=== PATIENT | female | born 1970 | race Caucasian/White ===

== ENCOUNTER → 2018-12-08 | Outpatient (CLI) | payer BC, SELFPAY ==
--- NOTE | 2018-12-08 15:28 | BI_ITS ---
MAMMOGRAPHY - BILATERAL SCREENING REASON FOR EXAM: Female, 48 years old. Routine annual screening examination. PERTINENT HISTORY: Aunt with breast cancer. Remote left excisional breast biopsy. TECHNIQUE: Digital bilateral breast eldon (3D mammographic acquisition) in the CC and MLO projections. 2-D mediolateral oblique (MLO) and craniocaudad (CC) views of both breasts were obtained. CAD: Full Field Digital Mammography with Computer Added Detection was performed. COMPARISON: Comparison is made with prior study dated November 30, 2016 and October 07, 2013 FINDINGS: Breast Composition: The breasts are almost entirely fatty. There are no dominant masses or suspicious calcifications. No other significant abnormalities are identified. There has been no significant change since the prior study. BI/SCREEN MAMM (CAD) W/ELDON BILAT IMPRESSION: Stable bilateral screening mammogram. Yearly follow-up mammogram recommended. (A) ASSESSMENT CATEGORY: BIRADS Category 1: Negative. A letter regarding these results will be sent to the patient by the facility within 30 days. Approximately 10% of breast cancers are not detected by mammography. A normal mammogram should not delay biopsy of a clinically suspicious abnormality. [id number] Electronically Signed: Cortez Garcia, at 7:59 EDT , Service support ,
== END | disposition home or self-care (01) ==
PROVIDERS: Family Provider Family Medicine; PCP Family Medicine
DX: Z12.31 Encounter for screening mammogram for malignant neoplasm of breast (principal)
CPT/HCPCS: 77063; 77067

== ENCOUNTER → 2019-02-13 17:28 | Outpatient (CLI) | payer BC, SELFPAY ==
[2014-05-30 00:42] VITALS: BMI 33.9
[2019-02-13 17:42] LABS: Absolute Lymphocyte Count 2.59 X10^3/uL (0.83-4.51); Absolute Neutrophil Count 5.5 X10^3/uL (2.0-7.7); Basophil# 0.06 X10^3/uL; Basophil% 0.7 % (0-1); Eosinophils% 1.1 % (0-5); Hematocrit 43.1 % (37-47); Hemoglobin 14.1 g/dL (12.0-15.0); Lymphocyte # 2.59 X10^3/ul (4.0); Lymphocyte % 29.5 % (19-41); Mean Corp Hgb Conc 32.7 g/dL (32-36); Mean Corpuscular Hgb 27.6 pg (27.0-32.0); Mean Corpuscular Volume 84.3 fL (81-99); Mean Platelet Vol. 11.4 fl (6.2-12.0); Monocyte# 0.53 X10^3/uL; NRBC Flagged by Analyzer 0 % (0-5); Neutrophil # 5.45 X10^3/uL (2.7-7.7); Neutrophil % 62.2 % (47-70); Platelet Count 372 K/mm3 (150-450); RBC Distribution Width CV 13.2 % (11.6-14.6); RBC Distribution Width SD 40.3 fl (35.1-43.9); Red Blood Count 5.11 M/mm3 (4.2-5.4); White Blood Count 8.8 K/mm3 (4.4-11.0)
[2019-02-13 17:49] LABS: Hemoglobin A1c 6.3 % (4.2-6.3)
[2019-02-13 18:15] LABS: Anion Gap 8 (5-15); BUN 11 mg/dL (7-18); BUN/Creat Ratio 14.2 RATIO (10-20); Calcium,Total 8.7 mg/dL (8.5-10.1); Chloride 105 mmol/L (98-107); Cholesterol 147 mg/dL (200); Creatinine, Serum 0.78 mg/dL (0.55-1.02); EST Glomerular Filtration Rate 84 mL/min (>60); Est Glom Filt Rate - Afr Amer 102 mL/min (>60); Glucose 105 mg/dL (74-106); High Density Lipoprotein 46 mg/dL; Potassium 3.9 mmol/L (3.5-5.1); Sodium Level 137 mmol/L (136-145); Triglycerides 168 mg/dL; Very Low Density Lipoprotein 34 mg/dL (5-40)
== END ==
PROVIDERS: Family Provider Family Medicine; PCP Family Medicine; Referring Provider Family Medicine; Visit Provider Family Medicine
DX: R03.0 Elevated blood-pressure reading, without diagnosis of hypertension (principal)
CPT/HCPCS: 36415; 80048; 80061; 83036; 85025

== ENCOUNTER 2019-02-23 13:09 | Emergency (ER) | payer BC, SELFPAY ==
[2019-02-23 13:09] VITALS: BP 157/92; PULSE 99; RESP 16; TEMP 36.7; O2SAT 98; BMI 37.5
[2019-02-23 13:53] LABS: Color, Urine Yellow (Yellow); Glucose, Dipstick Normal (Normal); Ketone-Dipstick 50 mg/dl (Negative); Leukocyte Esterase-Dipstick 100 /ul (Negative); Nitrite-Dipstick Negative (Negative); Occult Blood-Urine 250 /ul (Negative); Protein-Dipstick 15 mg/dl (Negative); Specific Gravity, Urine 1.015 (1.002-1.030); Urine Bilirubin Dipstick Negative (Negative); Urine Clarity Sl. Cloudy (Clear); Urine Urobilinogen Normal (Normal)
[2019-02-23 14:05] LABS: Bacteria 1+ /hpf (None Seen); Mucous, Urine 1+ /hpf (<or=2+); Red Blood Cells-Urine 5-10 SEEN /hpf (0-5); Squamous Epithelial Cells - UA 0-5 SEEN /hpf (5-10); White Blood Cells 5-10 SEEN /hpf (0-5)
[2019-02-23 14:10] LABS: Absolute Lymphocyte Count 1.69 X10^3/uL (0.83-4.51); Absolute Neutrophil Count 6.1 X10^3/uL (2.0-7.7); Basophil# 0.07 X10^3/uL; Basophil% 0.8 % (0-1); Eosinophil# 0.07 X10^3/uL; Eosinophils% 0.8 % (0-5); Hemoglobin 13.6 g/dL (12.0-15.0); Lymphocyte # 1.69 X10^3/ul (4.0); Lymphocyte % 20.2 % (19-41); Mean Corp Hgb Conc 32.4 g/dL (32-36); Mean Corpuscular Hgb 27.3 pg (27.0-32.0); Mean Corpuscular Volume 84.3 fL (81-99); Mean Platelet Vol. 10.8 fl (6.2-12.0); Monocyte# 0.43 X10^3/uL; Monocyte% 5.1 % (0-10); NRBC Flagged by Analyzer 0 % (0-5); Neutrophil % 72.9 % (47-70); Platelet Count 330 K/mm3 (150-450); RBC Distribution Width CV 13.3 % (11.6-14.6); RBC Distribution Width SD 41.1 fl (35.1-43.9); Red Blood Count 4.98 M/mm3 (4.2-5.4); White Blood Count 8.4 K/mm3 (4.4-11.0)
--- NOTE | 2019-02-23 14:13 | CT_ITS ---
STUDY: CT ABDOMEN AND PELVIS WITHOUT CONTRAST REASON FOR EXAM: Female, 48 years old. Left lower quadrant pain. History of celiac disease. RADIATION DOSAGE (If Supplied By Facility): CTDIvol = ( 19.00 ) mGy, DLP = ( 968.14 ) mGycm TECHNIQUE: Transaxial images were obtained from the dome of the diaphragm to the symphysis pubis without oral contrast, and without intravenous contrast. Sagittal and coronal images were reconstructed. Individualized dose optimization techniques were used for this CT. COMPARISON: None. FINDINGS: The visualized lung bases are unremarkable. The visualized portions of the heart are within normal limits. There is decreased attenuation of the liver consistent with steatosis. Hepatomegaly. There are multiple gallstones. Normal spleen. Normal pancreas. Normal bilateral adrenal glands. There is a 3.6 mm nonobstructive calculus in the anterior mid pole calyx. Mild degree of left hydronephrosis due to a 4.6 mm calculus at the left ureteral pelvic junction. Moderate sized hiatal hernia. Normal small intestine. Normal colon. The appendix is visualized and appears normal. Normal abdominal aorta. Normal inferior vena cava. Normal retroperitoneum. Normal urinary bladder. Normal abdominal wall. Normal osseous structures. CT/Abdomen/Pelvis without Cont IMPRESSION: 4.6 mm calculus at the left ureteropelvic junction causing mild degree of left hydronephrosis. Hepatomegaly and fatty infiltration of the liver. Nonobstructive right renal calculus. Multiple gallstones. Moderate hiatal hernia. Electronically Signed: Cortez Garcia, at 15:34 EDT , Service support ,
--- NOTE | 2019-02-23 14:16 | ED.VIS.GEN ---
History of Present Illness Chief Complaint: Abd Pain Informant: Patient Onset: Today Context: Sudden Onset Timing: Continuous Current Severity: Mild Maximum Severity: Severe Narrative: The patient presents to the emergency department with sudden onset abdominal pain. The patient was in her normal state of health. She states that this morning, she had a sharp stabbing pain in her left lower quadrant. It radiated to her back. She was nauseated without vomiting. States it lasted about an hour to an hour and a half. It is since resolved. She is noticed that she is had some blood in her urine and difficulty urinating. She denies any fevers or chills. She denies any change in bowel habits. She is otherwise been in her normal state of health. Prior similar symptoms: No Recent Illness/Hospitalization: No Past Medical History - Allergies and Home Meds Allergies/Adverse Reactions: Allergies No Known Allergies Allergy (Verified 02/23/19 13:12) Primary Care Physician: Tank Tran MD [Primary Care Provider] - Prior records reviewed: Yes Past Medical History: - - Celiac disease Smoking Status: Never smoker Review of Systems General: Denies: Chills, Fever, Sweats Eyes: Denies: Visual changes - bilaterally, Diplopia ENT: Denies: Rhinorrhea, Sore throat Cardiovascular: Denies: Chest pain, Palpitations Respiratory: Denies: Dyspnea, Cough, Dyspnea on exertion Gastrointestinal: Reports: Abdominal pain, Nausea. Denies: Vomiting, Diarrhea, Melena, Hematochezia Genitourinary: Reports: Hematuria. Denies: Dysuria, Frequency Musculoskeletal: Reports: Back pain. Denies: Extremity Pain Skin: Denies: Rash, Wounds Neurological: Denies: Headache, Weakness, Numbness Physical Exam Vital Signs/Narrative: Vital Signs Temp Pulse Resp BP Pulse Ox 02/23/19 13:09 98.0 F 99 16 157/92 H 98 Inital Vital Signs reviewed: Yes General: Well nourished, Well developed, No Acute Distress Head: Normocephalic, Atraumatic Eyes: Perrl, EOMI ENT: Moist mucous membranes, No rhinorrhea Neck: Supple, Nontender Cardiovascular: Regular rate, Regular rhythm, No murmurs Respiratory: No distress, CTA bilaterally, Chest nontender Abdomen: Soft, Nontender, Nondistended, Normal bowel sounds Back: Nontender, Normal Inspection Extremities: Nontender, No edema Skin: Normal color, No rash Neurological: Alert, Oriented x3, Cranial nerves II-XII grossly intact, Normal Strength, Normal Sensation Psychological: Normal affect, Normal Mood Diagnostic/Tx/Re-eval Clinical Impression(s) from Imaging Studies Abdomen/Pelvis CT 02/23/19 14:13 IMPRESSION: 4.6 mm calculus at the left ureteropelvic junction causing mild degree of left hydronephrosis. Hepatomegaly and fatty infiltration of the liver. Nonobstructive right renal calculus. Multiple gallstones. Moderate hiatal hernia. Electronically Signed: Cortez Garcia, at 15:34 EDT , Service support , Abnormal Lab Results 02/23/19 02/23/19 02/23/19 13:40 14:03 14:03 WBC 8.4 RBC 4.98 Hgb 13.6 Hct 42.0 MCV 84.3 MCH 27.3 MCHC 32.4 RDW Std Deviation 41.1 RDW Coeff of Sourav 13.3 Plt Count 330 MPV 10.8 Immature Gran % (Auto) 0.200 Neut % (Auto) 72.9 H Lymph % (Auto) 20.2 [place] % (Auto) 5.1 Eos % (Auto) 0.8 Baso % (Auto) 0.8 Absolute Neuts (auto) 6.1 Absolute Lymphs (auto) 1.69 Nucleated RBC % 0 Sodium 136 Potassium 3.7 Chloride 105 Carbon Dioxide 23.0 Anion Gap 8 BUN 9 Creatinine 0.77 Estim Creat Clear Calc 86.89 Est GFR (MDRD) Af Amer 103 Est GFR (MDRD) Non-Af 85 BUN/Creatinine Ratio 11.7 Glucose 113 H Calcium 8.9 Serum , Qual Urine Color Yellow Urine Clarity Sl. Cloudy Urine pH 6.0 Ur Specific [place] 1.015 Urine Protein 15 H Urine Glucose (UA) Normal Urine Ketones 50 H Urine Occult Blood 250 H Urine Nitrite Negative Urine Bilirubin Negative Urine Urobilinogen Normal Ur Leukocyte Esterase 100 H Urine RBC 5-10 SEEN Urine WBC 5-10 SEEN Ur Squamous Epith Cells 0-5 SEEN Urine Bacteria 1+ Urine Mucus 1+ 02/23/19 14:03 WBC RBC Hgb Hct MCV MCH MCHC RDW Std Deviation RDW Coeff of Sourav Plt Count MPV Immature Gran % (Auto) Neut % (Auto) Lymph % (Auto) [place] % (Auto) Eos % (Auto) Baso % (Auto) Absolute Neuts (auto) Absolute Lymphs (auto) Nucleated RBC % Sodium Potassium Chloride Carbon Dioxide Anion Gap BUN Creatinine Estim Creat Clear Calc Est GFR (MDRD) Af Amer Est GFR (MDRD) Non-Af BUN/Creatinine Ratio Glucose Calcium Serum , Qual NEGATIVE Urine Color Urine Clarity Urine pH Ur Specific [place] Urine Protein Urine Glucose (UA) Urine Ketones Urine Occult Blood Urine Nitrite Urine Bilirubin Urine Urobilinogen Ur Leukocyte Esterase Urine RBC Urine WBC Ur Squamous Epith Cells Urine Bacteria Urine Mucus - Medical Decision Making The patient symptoms do seem consistent with kidney stone. She also has evidence of contact dermatitis of bilateral lower extremities which she had for 10 days. She will be treated with prednisone for this. IV was established. Patient was given fluids. She really had no pain. She then had recurrence of some mild pain was given Toradol and was resting comfortably. Her urine does not show evidence of infection. Her kidney function is normal. CT demonstrates a 4.6 mm stone that is proximal on the left with minimal hydronephrosis. The patient does have good pain control, I do feel that she is safe for outpatient follow-up. She will be given outpatient urology referral along with analgesics and antiemetics. She was counseled concerning symptoms and reasons to return. She will be discharged home. Impression 1. Left kidney stone with colic ED Disposition - Plan for ED Patient: Disposition: Home or Assisted Living Instructions: KIDNEY STONE w/ Colic Prescriptions: Prednisone [Deltasone] 40 mg PO DAILY #10 tab Prescription Printed Hydrocodone Bitart/Apap 5-325 [Cades 5MG-325MG] 1 tab PO Q6H PRN PRN 3 Days #10 tab PRN Reason: Pain Prescription Printed Ondansetron [Zofran Odt] 4 mg PO Q8H PRN PRN #10 tab PRN Reason: Nausea Prescription Printed Referrals: Tank Tran MD [Primary Care Provider] -
[2019-02-23 14:27] LABS: Anion Gap 8 (5-15); BUN 9 mg/dL (7-18); BUN/Creat Ratio 11.7 RATIO (10-20); Calcium,Total 8.9 mg/dL (8.5-10.1); Chloride 105 mmol/L (98-107); Creatinine, Serum 0.77 mg/dL (0.55-1.02); EST Glomerular Filtration Rate 85 mL/min (>60); Est Glom Filt Rate - Afr Amer 103 mL/min (>60); Estimated Creatinine Clearance 86.89 ml/min; Glucose 113 mg/dL (74-106); Potassium 3.7 mmol/L (3.5-5.1); Sodium Level 136 mmol/L (136-145)
[2019-02-23 14:30] LABS: Internal QC Validated? YES +Cl - CLEAR BKGD; Pregnancy, Serum, hCG Quali. NEGATIVE Negative
[2019-02-23] MEDS: Ketorolac 30 MG/ML Syringe IV (15:16)
[2019-02-23 16:20] VITALS: BP 141/95; PULSE 92; RESP 16; O2SAT 98
== END 2019-02-23 16:20 | disposition home or self-care (01) ==
LOC: ED 14:19
PROVIDERS: Emergency Provider Emergency Medicine; Family Provider Family Medicine; PCP Family Medicine
DX: N13.2 Hydronephrosis with renal and ureteral calculous obstruction (principal); L25.9 Unspecified contact dermatitis, unspecified cause; K76.0 Fatty (change of) liver, not elsewhere classified; K80.20 Calculus of gallbladder without cholecystitis without obstruction; K44.9 Diaphragmatic hernia without obstruction or gangrene
CPT/HCPCS: 74176; 80048; 81001; 84703; 85025; 96374; 99283

== ENCOUNTER → 2019-03-10 09:17 | Outpatient (CLI) | payer BC, SELFPAY ==
[2019-02-23 13:09] VITALS: BMI 37.5
--- NOTE | 2019-03-10 09:18 | US_ITS ---
STUDY: ABDOMINAL ULTRASOUND - RIGHT UPPER QUADRANT REASON FOR VISIT: Female, 48 years old . Cholelithiasis. TECHNIQUE: Ultrasound evaluation of the right upper quadrant was performed with real-time and static hardin-scale imaging. TECHNICAL QUALITY: Adequate. COMPARISON: Comparison is made with prior CT scan of the abdomen and pelvis dated February 23, 2019. FINDINGS: Liver: The liver is mildly enlarged and measures 18.4 cm. There is increased echogenicity consistent with fatty infiltration. The bile ducts are within normal limits. There is hepatic color flow. The direction of portal flow is hepatopetal. There is no demonstrated mass lesion. Gallbladder: Normal distended gallbladder. The gallbladder wall measures 2.2 mm. There is a negative sonographic Avina's sign. There is no pericholecystic fluid. There are multiple echogenic structures within the gallbladder, consistent with multiple gallstones. Common Bile Duct (C.B.D.): The common bile duct measures 3.0 mm. Pancreas: There is nonvisualization of the pancreas due to overlying bowel gas. Right Kidney: Normal size of the right kidney. The right kidney measures 10.7 cm x 6.7 cm x 4.2 cm. Normal renal cortex. The right cortex measures 1.3 cm. There is no demonstrated renal mass or cyst. There is no right hydronephrosis. US/Abdomen Limited IMPRESSION: Multiple gallstones. Mild hepatomegaly with diffuse fatty infiltration of the liver. Electronically Signed: Cortez Garcia, at 11:04 EST , Service support ,
== END ==
PROVIDERS: Family Provider Family Medicine; PCP Family Medicine; Referring Provider Family Medicine; Visit Provider Family Medicine
DX: K80.20 Calculus of gallbladder without cholecystitis without obstruction (principal)
CPT/HCPCS: 76705

== ENCOUNTER 2019-03-19 12:48 | Observation (INO) | payer BC, SELFPAY ==
[2019-03-19] VITALS (10 sets, daily range): BP systolic 135–176; BP diastolic 71–96; PULSE 65–103; RESP 14–27; TEMP 36.6–37.7; O2SAT 94–97; BMI 37.5; BMI 37.6; BMI 37.0
--- NOTE | 2019-03-19 13:23 | EKG12_ITS ---
Test Reason : CP Blood Pressure : / mmHG Vent. Rate : 095 BPM Atrial Rate : 095 BPM P-R Int : 146 ms QRS Dur : 080 ms QT Int : 352 ms P-R-T Axes : 002 -53 017 degrees QTc Int : 442 ms Normal sinus rhythm Low voltage QRS Left anterior fascicular block Inferior infarct , age undetermined Cannot rule out Anterior infarct , age undetermined Abnormal ECG Confirmed by GOLDIE GUPTA, ELIGIO ([id number]), editor trade journal PJ AREVALO ([id number]) on 03/23/2019 9:23:11 AM Referred By: Yuli Duke Confirmed By:VERO AMEZCUA MD
--- NOTE | 2019-03-19 13:26 | RAD_ITS ---
STUDY: X-RAY CHEST REASON FOR EXAM: Female, 48 years old. Chest pain. Left hand numbness. TECHNIQUE: Single AP portable view of the chest. COMPARISON: None. FINDINGS: EKG electrodes are seen. The lungs are clear and expanded. There is no demonstrated pleural abnormality. Normal size heart. Normal mediastinum and debbie. Normal visualized pulmonary arteries. Normal visualized aortic arch and descending thoracic aorta. Normal visualized thoracic spine. Normal visualized ribs, clavicles, and shoulders. Large hiatal hernia. RAD/Chest 1 View (Portable) IMPRESSION: Normal x-ray examination of the chest. Large hiatal hernia. Electronically Signed: Cortez Garcia, at 14:04 EST , Service support ,
[2019-03-19 13:48] LABS: Absolute Lymphocyte Count 2.36 X10^3/uL (0.83-4.51); Absolute Neutrophil Count 5.4 X10^3/uL (2.0-7.7); Basophil# 0.06 X10^3/uL; Basophil% 0.7 % (0-1); Eosinophils% 1.2 % (0-5); Hematocrit 40.9 % (37-47); Hemoglobin 13.6 g/dL (12.0-15.0); Lymphocyte # 2.36 X10^3/ul (4.0); Lymphocyte % 28.4 % (19-41); Mean Corp Hgb Conc 33.3 g/dL (32-36); Mean Corpuscular Hgb 27.6 pg (27.0-32.0); Mean Platelet Vol. 11.5 fl (6.2-12.0); Monocyte# 0.41 X10^3/uL; Monocyte% 4.9 % (0-10); NRBC Flagged by Analyzer 0 % (0-5); Neutrophil # 5.36 X10^3/uL (2.7-7.7); Neutrophil % 64.7 % (47-70); Platelet Count 349 K/mm3 (150-450); RBC Distribution Width CV 13.3 % (11.6-14.6); Red Blood Count 4.93 M/mm3 (4.2-5.4); White Blood Count 8.3 K/mm3 (4.4-11.0)
[2019-03-19 13:58] LABS: Anion Gap 9 (5-15); BUN 9 mg/dL (7-18); BUN/Creat Ratio 12.2 RATIO (10-20); Calcium,Total 8.8 mg/dL (8.5-10.1); Chloride 107 mmol/L (98-107); Creatinine, Serum 0.74 mg/dL (0.55-1.02); EST Glomerular Filtration Rate 90 mL/min (>60); Est Glom Filt Rate - Afr Amer 108 mL/min (>60); Estimated Creatinine Clearance 90.41 ml/min; Glucose 102 mg/dL (74-106); Potassium 3.7 mmol/L (3.5-5.1); Sodium Level 139 mmol/L (136-145)
[2019-03-19 14:06] LABS: Prothrombin Time (Protime)PT. 12.8 SECONDS (11.7-14.9)
--- NOTE | 2019-03-19 15:38 | ED.DCSUM_ITS ---
- ER Visit Summary Date of Service: 03/19/19 Chief Complaint: Chest pain History of Present Illness: The patient is a 48 F history of hypertension celiac disease and known gallstones. He also had a history of reflux. Patient was recently diagnosed with a left UPJ 4.6 mm stone. He is going to have surgical procedure done tomorrow to relieve her of the stone. He was seen today by the neurologist and symptoms primary care physician's office due to recurrent chest pain for the last 6 weeks. She states that she has left-sided chest pain. Associated with exertion and shortness of breath. She also states she is more tired. She is never had any cardiac disease. She is never had a cardiac catheterization and no recent stress test. Currently her chest pain is nearly resolved. Physical Examination: Middle-aged female no acute distress vital signs stable afebrile. Pulse ox 97% on room air no signs of hypoxia. HEENT exam unremarkable. Neck nontender. Lungs clear to auscultation bilaterally. Heart regular rate and rhythm no murmur. Chest were nontender. Abdomen soft nontender. No epigastric or right upper quadrant tenderness. No Avina sign. Patient is moving all 4 extremities. Neurovascular intact. Calves are nontender without edema or cords. She is equal symmetrical radial pulses. Neurologically she is awake and alert with no focal motor deficits. Test Results: CBC shows a white count 8 hemoglobin 13. Chemistries are normal w ith a normal creatinine and gap. Troponin normal. Chest x-ray shows a moderate to large hiatal hernia but otherwise no acute abnormality. Read both by myself and the radiologist. EKG shows a sinus rhythm rate of 95 with no acute signs of PR or ischemia. Emergency Department Course and Treatment: Patient has left-sided chest pain associated with some exertion. This may or may not be cardiac it could also be secondary to her hiatal hernia. Her primary care physician's office called in wanting her cleared from a cardiac standpoint. I also spoke to her urologist who has a pending procedure tomorrow to resolve the left UPJ ureteral stone. I will speak to the hospitalist about admitting her for further cardiac evaluation. Treatment Plan: Admission for serial cardiac enzymes and stress testing. If cleared from a cardiac standpoint than she has a 3:00 procedure for her left ureteral calculi scheduled for tomorrow Disposition: Admission Impression: Chest pain uncertain etiology History of known hiatal hernia Recently diagnosed left UPJ ureteral stone with pending surgical procedure tomorrow Known gallstone This note was generated with [employer] dictation software. It may contain incorrect words, spelling, and punctuation that were not noted in review of the chart prior to signing ED Disposition - Plan for ED Patient: Referrals: Tank Tran MD [Primary Care Provider] -
[2019-03-19] MEDS: Ibuprofen 400 MG Tablet 800 MG PO (17:20)
--- NOTE | 2019-03-19 18:46 | EKG12_ITS ---
Test Reason : AM EKG Blood Pressure : / mmHG Vent. Rate : 073 BPM Atrial Rate : 073 BPM P-R Int : 170 ms QRS Dur : 074 ms QT Int : 394 ms P-R-T Axes : 020 -26 020 degrees QTc Int : 434 ms Normal sinus rhythm Normal ECG When compared with ECG of 19-MAR-2019 19:16, MANUAL COMPARISON REQUIRED, DATA IS UNCONFIRMED Confirmed by SAMMY KATZ ([id number]), book or script editor BRUCE SAGASTUME ([id number]) on 03/27/2019 11:52:31 AM Referred By: Yuli Duke Confirmed By:SAMMY KATZ
--- NOTE | 2019-03-19 19:07 | PCM.HP.STD ---
History of Present Illness Date of Admission: 03/19/19 The patient is a 48 year old F who presented to the ED today after being seen by her urologist and PC. She had complained to both of them about CP that has been occurring on and off over the last 6 weeks. She states that it is L sided and she has radiation of burning into her L arm and some intermittent numbness to her hand. Her sx are not specifically related to exertion and she states that she gets sx at rest and with exertion. She states that she also having some nausea but this has been ongoing as she has a bad gallbladder that needs removed. She is to have a surgical procedure tomorrow for L UPJ kidney stone 2/2 persistent hydronephrosis. She is currently CP free but had arm sx while i was in the room that i was able to sheri with cervical spine extension. EKG was unremarkable. Labs were completely normal. Her BP was mildly elevated. Past Medical History Allergies gluten Allergy (Verified 03/19/19 15:54) Food Allergy Home Medications: Ambulatory Orders Medication Instructions Recorded Amlodipine [Norvasc] 5 mg PO DAILY 02/23/19 Ethinyl Estradiol/Drospirenone 1 ea PO DAILY 02/23/19 [Ocella 3 mg-0.03 mg Tablet] Ferrous Gluconate 324 mg PO DAILY 03/19/19 Hyoscyamine [Levsinex] 0.125 mg PO Q12H PRN PRN 03/19/19 Psyllium [Metamucil] 1 packet PO DAILY PRN PRN 03/19/19 Surgical History: noncontributory Psychiatric History: No pertinent psych hx Lives: Spouse/ Significant Other, With Family Smoking Status: Never smoker Tobacco Use: Secondhand Alcohol: None Drugs: None Review of Systems Constitutional: Reports: Fatigue. Denies: Anorexia, Chills, Fever, Night Sweats, Malaise, Weakness, Weight Change Eyes: Denies: Blurred vision, Cataracts, Conjunctivae Inflammation, Double vision, Drainage, Eyelid Inflammation, Pain, Redness, Vision Change HEENT: Denies: Difficulty Hearing, Difficulty Swallowing, Dysphasia, Ear Pain, Eye Pain, Hard of Hearing, Head Aches, Hearing Changes, Nasal bleeding, Nasal Congestion, Post Nasal Drip, Sinus Drainage, Sore Throat, Visual Changes Cardiovascular: Reports: Chest Pain. Denies: Claudication, Chest Pressure, Chest Tightness, Edema, Heaviness, Light Headedness, Orthopnea, Palpitations Respiratory: Reports: Shortness of Breath - with CP. Denies: Cough, Hemoptysis, Pleuritic Pain, Shortness of breath at rest, Shortness of breath upon exertion, Sputum production, Wheezing Gastrointestinal: Reports: Abdominal Pain, Nausea. Denies: Constipation, Diarrhea, Dyspepsia, Hematemesis, Hematochezia, Melena, Vomiting Genitourinary: Denies: Dysuria, Frequency, Hematuria, Hesitancy, Incontinence, Nocturia, Retention, Urgency Musculoskeletal: Reports: Arm Pain - L. Denies: Back Pain, Foot Pain, Hand Pain, Joint Pain, Joint stiffness, Joint swelling, Joint Tenderness, Leg Pain, Muscle pain, Neck Pain, Shoulder Pain Skin: Denies: Dryness, Jaundice, Lesions, Pruritis, Rash, Skin Changes, Wounds Neurological: Reports: Tingling - L arm/hand. Denies: Balance problems, Blurred vision, Double vision, Change in Speech, Slurred speech, Confusion, Difficulty swallowing, Focal weakness, Headaches, Incoordination, Numbness, Tremor, Seizures Psychiatric: Denies: Anxiety, Depression Endocrine: Denies: Change in Body Habitus, Heat/ Cold Intolerance, Polydipsia, Polyuria, Hx of Irradiation, Hx of Thyroiditis Hematologic/ Lymphatic: Denies: Adenopathy, Anemia, Easy Bruising, Easy Bleeding, Petechiae, Purpura, Hx of blood clot, Hx of blood transfusion VTE Information - Inpt Only VTE Present on Admission: No VTE Mechan Device Prophylaxis: None VTE Pharm Prophylaxis ordered?: No - Physical Exam Vitals/I&O's: Vital Signs Temp Pulse Resp BP Pulse Ox 98.9 F 90 16 155/96 H 95 03/19/19 18:34 03/19/19 18:34 03/19/19 18:34 03/19/19 18:34 03/19/19 18:34 Oxygen Delivery Method Room Air Weight: 107.501 kg Body Mass Index (BMI) 37.0 General: Alert, Oriented x3, Cooperative, Well nourished, - - very talkative and appears comfortable HEENT: Atraumatic, PERRLA, EOMI, Normocephalic, EAC Clear Oral: Moist Mucosa, No Gingival or Mucosal Lesions/ Ulcerations Neck: Supple, No JVD, Negative Carotid Bruits, Negative Hepatojugular Reflux, No Nodes, No Nuchal Rigidity, Trachea Midline Lungs: Clear to auscultation, Normal air movement, No rhonchi, No wheeze, No rales Cardiovascular: Regular rate, Regular Rhythm, Normal S1, Normal S2, No murmurs, No Ectopic Activity, No rub noted, No Gallop Abdomen: Bowel Sounds Present, Soft, Non-Distended, No Hepato-splenomegaly, Obese, Tender - RUQ and epigastrum, No hernias noted Extremities: No clubbing, No cyanosis, No edema, Capillary Refill Less than 3 Seconds, No Calf Tenderness, Peripheral Pulses Normal Skin: No rashes, No breakdown Musculoskeletal: No Tenderness to Palpation of Joints or Extremities, No Muscle Wasting Lymphatic: No Cervical, Supraclavicular, or Inguinal Adenopathy Neurological: Cranial nerves II-XII grossly intact, Deep Tendon Reflexes 2+/4 and Symmetrical, Neuro grossly intact, Motor Exam 5/5 strength throughout Psych/Mental Status: Normal Affect, Appropriate, Alert and oriented to time, place, person, mood and affect Laboratory Results 03/19/19 13:25: WBC 8.3, RBC 4.93, Hgb 13.6, Hct 40.9, MCV 83.0, MCH 27.6, MCHC 33.3, RDW Std Deviation 40.0, RDW Coeff of Sourav 13.3, Plt Count 349, MPV 11.5, Immature Gran % (Auto) 0.100, Neut % (Auto) 64.7, Lymph % (Auto) 28.4, [place] % (Auto) 4.9, Eos % (Auto) 1.2, Baso % (Auto) 0.7, Absolute Neuts (auto) 5.4, Absolute Lymphs (auto) 2.36, Nucleated RBC % 0 03/19/19 13:25: PT 12.8, INR 1.0 03/19/19 13:25: Sodium 139, Potassium 3.7, Chloride 107, Carbon Dioxide 23.0, Anion Gap 9, BUN 9, Creatinine 0.74, Estim Creat Clear Calc 90.41, Est GFR (MDRD) Af Amer 108, Est GFR (MDRD) Non-Af 90, BUN/Creatinine Ratio 12.2, Glucose 102, Calcium 8.8, Troponin I < 0.015 Current Medications Sodium Chloride () 250 mls @ 15 mls/hr IV .[id number] PRN PRN Reason: Saline Flush Sodium Chloride () 10 - 40 ml IV UD PRN PRN Reason: SALINE FLUSH Assessment/Plan Chest Pain -atypical and arm sx improve with cervical spine extension -suspect more musculoskeletal -Stress test in am -cycle troponins -hold asa 2/2 urological intervention tomorrow -NPO after MN -Had neg Stress test about 7 yrs ago -EKG unremarkable UPJ Stone with Hydronephrosis L -4.6 mm stone -consult Urology -nml renal fxn HTN -continue home meds Cholecystitis-chronic -was to see Dr. Hurtado today about removal -reschedule appt Hiatal Hernia -f/u as outpt Obesity -recommend wght loss Celiac Disease -watch diet
--- NOTE | 2019-03-19 20:07 | CT_ITS ---
STUDY: CT SOFT TISSUE NECK WITHOUT CONTRAST REASON FOR EXAM: Female, 48 years old. Left shoulder pain. Left upper extremity numbness. RADIATION DOSAGE (If Supplied By Facility): CTDIvol = ( 22.00 ) mGy, DLP = ( 620.75 ) mGycm TECHNIQUE: The patient was scanned in a multi-detector CT scanner. High resolution transaxial imaging was performed without the administration of intravenous contrast material. Sagittal and coronal images were reconstructed. Individualized dose optimization techniques were used for this CT. COMPARISON: None. FINDINGS: Normal bilateral parotid glands. Normal bilateral [place] pilot spaces. Normal bilateral parapharyngeal spaces. Normal bilateral carotid spaces. Normal bilateral sublingual and submandibular glands and spaces. Normal visualized nasopharynx. Normal retropharyngeal space. Normal perivertebral space. Normal visualized bilateral faucial tonsils. The visualized tongue, tongue base and oropharynx are normal. There are mildly enlarged jugular lymph nodes measuring up to 1.2 cm. Submandibular lymph nodes measure less than 1.0 cm. There is no demonstrated solid or cystic mass lesion. Normal epiglottis, bilateral vallecula and hypopharynx. The pre-epiglottic and paraglottic adipose spaces are normal. Normal visualized bilateral piriform sinuses, aryepiglottic folds, vocal cords, and arytenoid-cricoid articulations. Normal subglottic trachea. Normal bilateral lobes of the thyroid gland. There is consolidation in the left midlung. Normal visualized paranasal sinuses. There is multilevel degenerative changes of the cervical spine. There is left-sided foraminal narrowing. CT/Soft Tissue Neck without Contr IMPRESSION: No dominant mass. Mildly enlarged lymph nodes. Cervical spondylosis. Electronically Signed: Benson Cruz MD at 20:46 EST , Service support ,
--- NOTE | 2019-03-19 20:30 | NURSING ---
pt came back from [facility]. c/o left arm/neck and chest pain but she said not pain really. Offered pt a nitro for pain. pt took 1 nitro pt said with relief then pt turned her head and was no not really. Offered another nitro pt refused. Pt said the heating pad helps the best
[2019-03-19] MEDS: Nitroglycerin (INPATIENT USE) 0.4 MG TAB.SUBL SUBLINGUAL (20:31)
[2019-03-19] MEDS: ETHINYL ESTRADIOL/DROSPIRENONE 1 EACH TABLET PO (21:15)
[2019-03-19] MEDS: HYDROcodone Bitartrate/Apap 5/325 Tablet PO (23:43)
[2019-03-19] MEDS: Gabapentin 100 MG Capsule PO (23:44)
[2019-03-20] VITALS (15 sets, daily range): BP systolic 124–155; BP diastolic 73–100; PULSE 69–98; RESP 12–20; TEMP 36.4–37.3; O2SAT 92–100; BMI 37.2
[2019-03-20] MEDS: Ceftriaxone 1 GM/50 ML BAG IV ×2 (00:01→15:29)
[2019-03-20] MEDS: Ondansetron 4 MG/2 ML Vial IV ×2 (00:51→13:27)
[2019-03-20] MEDS: HYDROcodone Bitartrate/Apap 5/325 Tablet PO (00:51)
[2019-03-20] MEDS: 0.9% Saline Lock 10 ML Syringe IV ×2 (00:51→13:27)
[2019-03-20 04:49] LABS: Internal QC Validated? YES +Cl - CLEAR BKGD; Pregnancy, Urine Negative Negative
--- NOTE | 2019-03-20 04:56 | EKG12_ITS ---
Test Reason : CP ADMIT Blood Pressure : / mmHG Vent. Rate : 093 BPM Atrial Rate : 093 BPM P-R Int : 160 ms QRS Dur : 082 ms QT Int : 370 ms P-R-T Axes : 008 -39 018 degrees QTc Int : 460 ms Normal sinus rhythm Left axis deviation Abnormal ECG When compared with ECG of 19-MAR-2019 12:53, MANUAL COMPARISON REQUIRED, DATA IS UNCONFIRMED Confirmed by SAMMY KATZ ([id number]), news copy editor BRUCE SAGASTUME ([id number]) on 03/27/2019 11:52:22 AM Referred By: Yuli Duke Confirmed By:SAMMY KATZ
[2019-03-20 05:59] LABS: Hematocrit 39.1 % (37-47); Hemoglobin 12.9 g/dL (12.0-15.0); Mean Corpuscular Hgb 27.6 pg (27.0-32.0); Mean Corpuscular Volume 83.5 fL (81-99); Mean Platelet Vol. 10.8 fl (6.2-12.0); Platelet Count 301 K/mm3 (150-450); RBC Distribution Width CV 13.2 % (11.6-14.6); RBC Distribution Width SD 40.1 fl (35.1-43.9); Red Blood Count 4.68 M/mm3 (4.2-5.4); White Blood Count 6.9 K/mm3 (4.4-11.0)
[2019-03-20 06:17] LABS: ALB/GLOB Ratio 0.8 RATIO (0.9-2.4); AST(SGOT) 10 U/L (15-37); Alanine Aminotransfer ALT/SGPT 12 U/L (13-56); Alkaline Phosphatase 51 U/L (45-117); Anion Gap 8 (5-15); BUN 9 mg/dL (7-18); BUN/Creat Ratio 12.2 RATIO (10-20); Calcium,Total 8.1 mg/dL (8.5-10.1); Chloride 105 mmol/L (98-107); Cholesterol 132 mg/dL (200); Creatinine, Serum 0.74 mg/dL (0.55-1.02); EST Glomerular Filtration Rate 89 mL/min (>60); Est Glom Filt Rate - Afr Amer 108 mL/min (>60); Estimated Creatinine Clearance 90.41 ml/min; Globulin 3.9 g/dL (2.2-4.2); Glucose 102 mg/dL (74-106); High Density Lipoprotein 48 mg/dL; Potassium 3.9 mmol/L (3.5-5.1); Protein, Total 6.9 g/dL (6.4-8.2); Sodium Level 138 mmol/L (136-145); Triglycerides 121 mg/dL; Very Low Density Lipoprotein 24 mg/dL (5-40)
--- NOTE | 2019-03-20 07:45 | PCM.CONS.GEN ---
Problem List (1) Left ureteral calculus Status: Acute Reason for Consult Date of Consultation: 03/20/19 Reason for Consultation: left ureteral calculus History of Present Illness: The patient is a 48 year old F who presented to my office in consultation yesterday for left ureteral stone. She was identified as having a proximal left ureteral calculus at the end of January. She still feels like the stone is there. Her symptoms have changed from severe flank pain to severe urgency and frequency with voiding. She is also having intermittent nausea. We discussed the risk benefits and alternatives, and informed consent was obtained to proceed with surgical intervention. While in the office however, she discussed this vague left sided shoulder and arm discomfort. She feels it is related to reflux but is not sure. She was also recently placed on an antihypertensive for her blood pressure. After seeing her in the office, I sent her to primary care physician who then admitted her for a cardiac evaluation. She is now scheduled for surgical intervention this afternoon. She is currently undergoing a cardiac stress test. She has had serial enzymes done. There is a question of pneumonia and a question of a pinched nerve. We will proceed with intervention if okay with all services involved. I spoke with anesthesia who is aware. Past Medical History Allergies gluten Allergy (Verified 03/19/19 15:54) Food Allergy Home Medications: Ambulatory Orders Medication Instructions Recorded Amlodipine [Norvasc] 5 mg PO DAILY 02/23/19 Ethinyl Estradiol/Drospirenone 1 ea PO DAILY 02/23/19 [Ocella 3 mg-0.03 mg Tablet] Ferrous Gluconate 324 mg PO DAILY 03/19/19 Hyoscyamine [Levsinex] 0.125 mg PO Q12H PRN PRN 03/19/19 Psyllium [Metamucil] 1 packet PO DAILY PRN PRN 03/19/19 Surgical History: noncontributory Psychiatric History: No pertinent psych hx Lives: Spouse/ Significant Other, With Family Smoking Status: Never smoker Tobacco Use: Secondhand Alcohol: None Drugs: None Review of Systems Eyes: Denies: Blurred vision HEENT: Denies: Difficulty Hearing Cardiovascular: Reports: Chest Pressure Respiratory: Denies: Cough, Shortness of Breath Gastrointestinal: Reports: Abdominal Pain, Nausea Genitourinary: Reports: Frequency, Urgency Gynecological: Denies: Vaginal discharge Skin: Denies: Wounds Neurological: Denies: Balance problems Endocrine: Denies: Change in Body Habitus Patient Problems: Active and Suspected Problems Left ureteral calculus (Acute) - Physical Exam Vitals/I&O's: Vital Signs Temp Pulse Resp BP Pulse Ox 98.3 F 81 16 130/78 H 97 03/20/19 02:45 03/20/19 06:51 03/20/19 02:45 03/20/19 02:45 03/20/19 02:45 Oxygen Delivery Method Room Air Weight: 107.501 kg Body Mass Index (BMI) 37.0 Intake and Output for Last 24 Hours 03/18/19 03/19/19 03/20/19 23:59 23:59 23:59 Intake Total 425 / 425 Balance 425 / 425 General: Alert, Oriented x3 HEENT: Atraumatic, Normocephalic Oral: Moist Mucosa Neck: Supple, Trachea Midline Lungs: Clear to auscultation Cardiovascular: Regular rate Abdomen: Soft Skin: No rashes Neurological: Cranial nerves II-XII grossly intact Microbiology Past 72 Hours 03/20/19 03:00 Urine, Clean Catch Streptococcus pneumoniae Antigen (M - Final 03/20/19 03:00 Urine, Clean Catch Legionella Antigen - Final Laboratory Results 03/19/19 13:25: WBC 8.3, RBC 4.93, Hgb 13.6, Hct 40.9, MCV 83.0, MCH 27.6, MCHC 33.3, RDW Std Deviation 40.0, RDW Coeff of Sourav 13.3, Plt Count 349, MPV 11.5, Immature Gran % (Auto) 0.100, Neut % (Auto) 64.7, Lymph % (Auto) 28.4, [place] % (Auto) 4.9, Eos % (Auto) 1.2, Baso % (Auto) 0.7, Absolute Neuts (auto) 5.4, Absolute Lymphs (auto) 2.36, Nucleated RBC % 0 03/19/19 13:25: PT 12.8, INR 1.0 03/19/19 13:25: Sodium 139, Potassium 3.7, Chloride 107, Carbon Dioxide 23.0, Anion Gap 9, BUN 9, Creatinine 0.74, Estim Creat Clear Calc 90.41, Est GFR (MDRD) Af Amer 108, Est GFR (MDRD) Non-Af 90, BUN/Creatinine Ratio 12.2, Glucose 102, Calcium 8.8, Troponin I < 0.015 03/19/19 19:00: Troponin I < 0.015 03/19/19 22:30: Troponin I < 0.015 03/20/19 03:00: Urine Test Negative 03/20/19 05:40: WBC 6.9, RBC 4.68, Hgb 12.9, Hct 39.1, MCV 83.5, MCH 27.6, MCHC 33.0, RDW Std Deviation 40.1, RDW Coeff of Sourav 13.2, Plt Count 301, MPV 10.8 03/20/19 05:40: Sodium 138, Potassium 3.9, Chloride 105, Carbon Dioxide 25.0, Anion Gap 8, BUN 9, Creatinine 0.74, Estim Creat Clear Calc 90.41, Est GFR (MDRD) Af Amer 108, Est GFR (MDRD) Non-Af 89, BUN/Creatinine Ratio 12.2, Glucose 102, Calcium 8.1 L, Total Bilirubin 0.20, AST 10 L, ALT 12 L, Alkaline Phosphatase 51, Total Protein 6.9, Albumin 3.0 L, Globulin 3.9, Albumin/Globulin Ratio 0.8 L, Triglycerides 121, Cholesterol 132, LDL Cholesterol 60, VLDL Cholesterol 24, HDL Cholesterol 48 Current Medications Acetaminophen (Tylenol) 650 mg PO Q6H PRN PRN PRN Reason: Non-cardiac pain (mod-severe) Hydrocodone Bitart/Acetaminophen ([place] 5mg-325mg) 1 - 2 tablet PO Q4H PRN PRN PRN Reason: Pain Score 4-10/10 Last Admin: 03/20/19 00:51 Dose: 1 tablet Documented by: Al Hydroxide/Mg Hydroxide (Mylanta Ii) 15 - 30 ml PO Q4H PRN PRN PRN Reason: INDIGESTION Albuterol Sulfate (Ventolin Aerosols) 2.5 mg INHALATION Q2H PRN PRN PRN Reason: dyspnea, wheezing Amlodipine Besylate (Norvasc) 5 mg PO QHS [facility] Ferrous Gluconate (Ferrous Gluconate) 324 mg PO DAILY [facility] Gabapentin (Neurontin) 100 mg PO TIDCM [facility] Last Admin: 03/19/19 23:44 Dose: 100 mg Documented by: Hydralazine HCl (Apresoline Iv) 10 mg IV Q4H PRN PRN PRN Reason: SBP > 160 Hyoscyamine Sulfate (Levsin/Sl) 0.125 mg PO Q12H PRN PRN PRN Reason: GI CRAMPING Sodium Chloride () 250 mls @ 15 mls/hr IV .[id number] PRN PRN Reason: Saline Flush Ceftriaxone Sodium (Rocephin) 1 gm in 50 mls @ 100 mls/hr IV QHS [facility] Last Infusion: 03/20/19 00:31 Dose: Infused Documented by: Azithromycin 500 mg/ Dextrose 255 mls @ 250 mls/hr IV QHS [facility] Last Infusion: 03/20/19 01:46 Dose: Infused Documented by: Magnesium Hydroxide (Milk Of Magnesia) 30 ml PO DAILY PRN PRN Reason: Constipation Morphine Sulfate () 1 - 2 mg IV Q4H PRN PRN PRN Reason: Pain Score 1-10/10 Nitroglycerin (Nitrostat) 0.4 mg SUBLINGUAL Q5M PRN PRN Reason: CHEST PAIN Last Admin: 03/19/19 20:31 Dose: 1 tab Documented by: Ondansetron HCl (Zofran) 4 mg IV Q8H PRN PRN PRN Reason: NAUSEA/VOMITING Last Admin: 03/20/19 00:51 Dose: 4 mg Documented by: Psyllium Hydrophilic Mucilloid (Metamucil) 1 packet PO DAILY PRN PRN PRN Reason: fiber Sodium Chloride () 10 - 40 ml IV UD PRN PRN Reason: SALINE FLUSH Last Admin: 03/20/19 00:51 Dose: 20 ml Documented by: Assessment/Plan All Active Problems Left ureteral calculus (Acute) Complete cardiac evaluation. Plan for surgical intervention for her left ureteral calculus this afternoon with ureteroscopy, laser lithotripsy and stent as long as all services are okay with proceeding.
--- NOTE | 2019-03-20 11:49 | PCM.PN.HOSP ---
Subjective: Patient was seen and examined. She went for cystoscopy today. No complains. Vitals/I&O's: Vital Signs Temp Pulse Resp BP Pulse Ox 98.6 F 88 16 134/73 H 95 03/20/19 08:30 03/20/19 08:30 03/20/19 08:30 03/20/19 08:30 03/20/19 08:30 Oxygen Delivery Method Room Air Weight: 107.501 kg Body Mass Index (BMI) 37.0 Intake and Output for Last 24 Hours 03/18/19 03/19/19 03/20/19 23:59 23:59 23:59 Intake Total 425 / 425 Balance 425 / 425 General: Alert, Oriented x3, Cooperative, No apparent distress, - - obese HEENT: Atraumatic, PERRLA, EOMI, Normocephalic Oral: Moist Mucosa Neck: Supple Lungs: Clear to auscultation, Normal air movement Cardiovascular: Regular rate, Regular Rhythm, Normal S1, No murmurs Abdomen: Bowel Sounds Present, Soft, Non Tender, Non-Distended, No Hepato-splenomegaly Extremities: No edema Skin: No rashes Musculoskeletal: No Tenderness to Palpation of Joints or Extremities Lymphatic: No Cervical, Supraclavicular, or Inguinal Adenopathy Neurological: Cranial nerves II-XII grossly intact, Neuro grossly intact Psych/Mental Status: Normal Affect, Appropriate Microbiology Past 72 Hours 03/20/19 03:00 Urine, Clean Catch Streptococcus pneumoniae Antigen (M - Final 03/20/19 03:00 Urine, Clean Catch Legionella Antigen - Final Laboratory Results 03/19/19 13:25: WBC 8.3, RBC 4.93, Hgb 13.6, Hct 40.9, MCV 83.0, MCH 27.6, MCHC 33.3, RDW Std Deviation 40.0, RDW Coeff of Sourav 13.3, Plt Count 349, MPV 11.5, Immature Gran % (Auto) 0.100, Neut % (Auto) 64.7, Lymph % (Auto) 28.4, [place] % (Auto) 4.9, Eos % (Auto) 1.2, Baso % (Auto) 0.7, Absolute Neuts (auto) 5.4, Absolute Lymphs (auto) 2.36, Nucleated RBC % 0 03/19/19 13:25: PT 12.8, INR 1.0 03/19/19 13:25: Sodium 139, Potassium 3.7, Chloride 107, Carbon Dioxide 23.0, Anion Gap 9, BUN 9, Creatinine 0.74, Estim Creat Clear Calc 90.41, Est GFR (MDRD) Af Amer 108, Est GFR (MDRD) Non-Af 90, BUN/Creatinine Ratio 12.2, Glucose 102, Calcium 8.8, Troponin I < 0.015 03/19/19 19:00: Troponin I < 0.015 03/19/19 22:30: Troponin I < 0.015 03/20/19 03:00: Urine Test Negative 03/20/19 05:40: WBC 6.9, RBC 4.68, Hgb 12.9, Hct 39.1, MCV 83.5, MCH 27.6, MCHC 33.0, RDW Std Deviation 40.1, RDW Coeff of Sourav 13.2, Plt Count 301, MPV 10.8 03/20/19 05:40: Sodium 138, Potassium 3.9, Chloride 105, Carbon Dioxide 25.0, Anion Gap 8, BUN 9, Creatinine 0.74, Estim Creat Clear Calc 90.41, Est GFR (MDRD) Af Amer 108, Est GFR (MDRD) Non-Af 89, BUN/Creatinine Ratio 12.2, Glucose 102, Calcium 8.1 L, Total Bilirubin 0.20, AST 10 L, ALT 12 L, Alkaline Phosphatase 51, Total Protein 6.9, Albumin 3.0 L, Globulin 3.9, Albumin/Globulin Ratio 0.8 L, Triglycerides 121, Cholesterol 132, LDL Cholesterol 60, VLDL Cholesterol 24, HDL Cholesterol 48 Current Medications Acetaminophen (Tylenol) 650 mg PO Q6H PRN PRN PRN Reason: Non-cardiac pain (mod-severe) Hydrocodone Bitart/Acetaminophen ([place] 5mg-325mg) 1 - 2 tablet PO Q4H PRN PRN PRN Reason: Pain Score 4-10/10 Last Admin: 03/20/19 00:51 Dose: 1 tablet Documented by: Al Hydroxide/Mg Hydroxide (Mylanta Ii) 15 - 30 ml PO Q4H PRN PRN PRN Reason: INDIGESTION Albuterol Sulfate (Ventolin Aerosols) 2.5 mg INHALATION Q2H PRN PRN PRN Reason: dyspnea, wheezing Amlodipine Besylate (Norvasc) 5 mg PO QHS [facility] Ferrous Gluconate (Ferrous Gluconate) 324 mg PO DAILY [facility] Gabapentin (Neurontin) 100 mg PO TIDCM [facility] Last Admin: 03/19/19 23:44 Dose: 100 mg Documented by: Hydralazine HCl (Apresoline Iv) 10 mg IV Q4H PRN PRN PRN Reason: SBP > 160 Hyoscyamine Sulfate (Levsin/Sl) 0.125 mg PO Q12H PRN PRN PRN Reason: GI CRAMPING Sodium Chloride () 250 mls @ 15 mls/hr IV .[id number] PRN PRN Reason: Saline Flush Ceftriaxone Sodium (Rocephin) 1 gm in 50 mls @ 100 mls/hr IV QHS [facility] Last Infusion: 03/20/19 00:31 Dose: Infused Documented by: Azithromycin 500 mg/ Dextrose 255 mls @ 250 mls/hr IV QHS [facility] Last Infusion: 03/20/19 01:46 Dose: Infused Documented by: Magnesium Hydroxide (Milk Of Magnesia) 30 ml PO DAILY PRN PRN Reason: Constipation Morphine Sulfate () 1 - 2 mg IV Q4H PRN PRN PRN Reason: Pain Score 1-10/10 Nitroglycerin (Nitrostat) 0.4 mg SUBLINGUAL Q5M PRN PRN Reason: CHEST PAIN Last Admin: 03/19/19 20:31 Dose: 1 tab Documented by: Ondansetron HCl (Zofran) 4 mg IV Q8H PRN PRN PRN Reason: NAUSEA/VOMITING Last Admin: 03/20/19 00:51 Dose: 4 mg Documented by: Psyllium Hydrophilic Mucilloid (Metamucil) 1 packet PO DAILY PRN PRN PRN Reason: fiber Sodium Chloride () 10 - 40 ml IV UD PRN PRN Reason: SALINE FLUSH Last Admin: 03/20/19 00:51 Dose: 20 ml Documented by: STROKE Vital Signs/Narrative: Vital Signs Temp Pulse Resp BP Pulse Ox 03/20/19 08:30 98.6 F 88 16 134/73 H 95 Medical Necessity - Tobacco Use Smoking Status: Never smoker Tobacco Use: Secondhand Assessment/Plan All Active Problems Left ureteral calculus (Acute) 1. Chest Pain, atypical, likely musculoskeletal, EKG is unremarkable. Stress test negative. MRI of neck did not show disc herniation. Facet arthropathy on the left more than the right. Left foraminal narrowing at C4-5. Conservative management. 2. Left kidney stone with Hydronephrosis, improved s/p cystoscopy, left ureteroscopy, holmium laser lithotripsy, stone basket extraction, left ureteral stent insertion Urology following. 3. Hypertension, controlled, continue home meds 4. Chronic cholecystitis, will follow-up with Dr. Hurtado 5. Hypertension, controlled, continue on meds 6. Obesity, BMI 37.2, lifestyle modification recommended Code Visit Inpatient E&M: 15660 Subs Hosp L2
--- NOTE | 2019-03-20 12:25 | STRESSREP_ITS ---
Stress Test Report Exercise myocardial perfusion stress test. 48-year-old lady with a history of chest pain. Stress protocol: Resting EKG demonstrates normal sinus rhythm with a rate of 80 bpm normal intervals are noted resting blood pressures 130/88 mmHg. The patient exercised according to regular Ramon protocol for total duration of 6 minutes. The max imum heart rate attained was 155 bpm which was 90% of maximum predicted heart rate the maximum workload was 7 metabolic equivalents. At rest there were no ST or T wave changes noted suggest ischemia peak exercise no ST or T wave changes with no suggest ischemia. No clinical angina was noted the test was terminated due to the target heart rate being achieved. The resting blood pressure was 130/88 with a peak blood pressure 154/82. Myocardial perfusion protocol. 15.0 mCi of technetium 99m sestamibi was injected at rest. Patient exercised according to regular Ramon protocol for 6 minutes at peak exercise 45.0 mCi of technetium 99m sestamibi was injected stress images were obtained stress and rest images were reconstructed in comparing the short axis vertical long horizontal long axis. Gated images was obtained per Perfusion SPECT analysis: Review of the stress images demonstrate normal uptake of tracer noted in all areas of myocardium. The rest images similar demonstrate normal uptake of tracer noted in all areas of myocardium. No areas of reversibility are noted suggest ischemia. Gated SPECT analysis: The gated ejection fraction is noted to be 83%. Conclusion: Normal exercise myocardial perfusion stress test at a moderate workload. Preserved ejection fraction.
[2019-03-20] MEDS: Acetaminophen 325 MG Tablet 650 MG PO (13:27)
[2019-03-20 14:56] LABS: Bedside Glucose 98 mg/dL (70-110)
--- NOTE | 2019-03-20 15:30 | PCM.OPRPT ---
Problem List (1) Left ureteral calculus Status: Acute Report of Operation Date of Procedure: 03/20/19 Pre-Operative Diagnosis: left ureteral calculus Post-Operative Diagnosis: same Surgery/Procedure Performed:: cystoscopy, left ureteroscopy, holmium laser lithotripsy, stone basket extraction, left ureteral stent insertion Type of Anesthesia:: General Specimen's removed: Stone fragments Description of Procedure: The patient is a 48yo female who began passing a left ureteral calculus on February 23. She presented to the office with continued symptoms yesterday. She was admitted for a cardiac evaluation for left shoulder pain. Her evaluation was good, and we are now going to definitively treat her left ureteral stone. Informed consent was obtained. She was taken to the operating room and placed on the operating room table. Anesthesia monitored the head, neck, airway, IV access and vital signs throughout the case. Once anesthesia was appropriately administered, she was placed into dorsal lithotomy position was prepped and draped in usual sterile fashion. A cystourethroscopy revealed no evidence of bladder mucosal abnormality including ulceration or tumor. The left ureteral orifice was identified and intubated with a 0.035 Glidewire. Using the help of 8.025 Glidewire, the semirigid ureteroscope was able to gain access to the distal ureter where the stone was identified. It was fragmented into multiple pieces using the holmium laser. These pieces were then basket extracted and many of them were sent for analysis. Using the safety wire, a 6 [place] 24 cm double-J stent was inserted without difficulty with fluoroscopic guidance. The string was left attached. The bladder was emptied and the case was terminated. The patient was awakened and taken to the recovery room in good condition. No complications during the procedure. Grafts/Implants Used: JJ stent [id number] - Complications None - Admit VTE Documentation VTE Present on Admission: Yes VTE Mechan Device Prophylaxis: SCD's VTE Pharm Prophylaxis ordered?: No Reason prophylaxis not ordered:: Treatment Not Indicated
--- NOTE | 2019-03-20 16:56 | PCM.DC.URO ---
Discharge Diet: No Restrictions Discharge Activity: May not drive while taking narcotic pain medications., May Shower May resume sexual activity in: 2 weeks Call your doctor if you observe: Fever of 101 or Higher, Inability to urinate, Shortness of breath, Chest pain, Calf discomfort, Uncontrolled pain Additional Instructions: remove string stent on Saturday morning. Allergies/Adverse Reactions: Allergies gluten Allergy (Verified 03/19/19 15:54) Food Allergy Medications to take at Discharge Amlodipine [Norvasc] 5 mg PO DAILY 02/23/19 Ethinyl Estradiol/Drospirenone [[place] 3 mg-0.03 mg Tablet] 1 ea PO DAILY 02/23/19 Ferrous Gluconate 324 mg PO DAILY 03/19/19 Hyoscyamine [Levsinex] 0.125 mg PO Q12H PRN PRN 03/19/19 Psyllium [Metamucil] 1 packet PO DAILY PRN PRN 03/19/19 Primary Care Physician: Tank Tran MD [Primary Care Provider] - Test Results: Test results from this visit will be discussed in further detail at your follow-up appointment, if applicable. Please Follow Up With: Yuli Duke MD When: call office for appt in 2-3 weeks
--- NOTE | 2019-03-20 16:57 | PCM.PN.GU ---
Physical Exam - Physical Exam Vital Signs Temp 97.5 F L 03/20/19 13:24 Pulse 69 03/20/19 13:24 Resp 16 03/20/19 13:24 BP 155/81 H 03/20/19 13:24 Pulse Ox 96 03/20/19 13:24 Intake & Output 03/18/19 03/19/19 03/20/19 23:59 23:59 23:59 Intake Total 475 / 475 Balance 475 / 475 Weight: 107.501 kg 107.5 kg Intake: Oral 120 / 120 Intake, IV Amount 355 / 355 Rocephin 1 gm In 50 ml @ 100 50 / 50 mls/hr IV DAILY [facility] Rx#: [id number] Rocephin 1 gm In 50 ml @ 100 50 / 50 mls/hr IV QHS [facility] Rx#:[id number] Zithromax 500 MG In Dextrose 5% 255 / 255 250 ML @ 250 mls/hr IV QHS [facility] Rx#:[id number] Other: Number of Voids 3 Microbiology Past 72 Hours 03/20/19 11:19 Respiratory Panel (PCR) - Final Mucosa - Nose 03/20/19 03:00 Streptococcus pneumoniae Antigen (M - Final Urine, Clean Catch 03/20/19 03:00 Legionella Antigen - Final Urine, Clean Catch Laboratory Tests Past 24 Hrs 03/19/19 03/19/19 03/20/19 19:00 22:30 03:00 WBC RBC Hgb Hct MCV MCH MCHC RDW Std Deviation RDW Coeff of Sourav Plt Count MPV Sodium Potassium Chloride Carbon Dioxide Anion Gap BUN Creatinine Estim Creat Clear Calc Est GFR (MDRD) Af Amer Est GFR (MDRD) Non-Af BUN/Creatinine Ratio Glucose Calcium Total Bilirubin AST ALT Alkaline Phosphatase Troponin I < 0.015 < 0.015 Total Protein Albumin Globulin Albumin/Globulin Ratio Triglycerides Cholesterol LDL Cholesterol VLDL Cholesterol HDL Cholesterol Urine Test Negative Stone Size Stone Weight Stone Color 03/20/19 03/20/19 03/20/19 05:40 05:40 16:36 WBC 6.9 RBC 4.68 Hgb 12.9 Hct 39.1 MCV 83.5 MCH 27.6 MCHC 33.0 RDW Std Deviation 40.1 RDW Coeff of Sourav 13.2 Plt Count 301 MPV 10.8 Sodium 138 Potassium 3.9 Chloride 105 Carbon Dioxide 25.0 Anion Gap 8 BUN 9 Creatinine 0.74 Estim Creat Clear Calc 90.41 Est GFR (MDRD) Af Amer 108 Est GFR (MDRD) Non-Af 89 BUN/Creatinine Ratio 12.2 Glucose 102 Calcium 8.1 L Total Bilirubin 0.20 AST 10 L ALT 12 L Alkaline Phosphatase 51 Troponin I Total Protein 6.9 Albumin 3.0 L Globulin 3.9 Albumin/Globulin Ratio 0.8 L Triglycerides 121 Cholesterol 132 LDL Cholesterol 60 VLDL Cholesterol 24 HDL Cholesterol 48 Urine Test Stone Size Pending Stone Weight Pending Stone Color Pending Medical Necessity - Tobacco Use Smoking Status: Never smoker Tobacco Use: Secondhand Assessment/Plan All Active Problems Left ureteral calculus (Acute) Patient is s/p ureteroscopy, laser lithotripsy, basket extraction and stent insertion. From a urological standpoint, her antibiotics will be completed upon discharge. She can remove the string stent on her own on Saturday morning. She can be discharged when she is medically cleared, and follow-up with me in the office in 2 to 3 weeks. She will need to call for an appointment. Please call me if there are any questions or concerns, thank you.
[2019-03-20] MEDS: Ketorolac 15 MG/ML Vial IV (22:51)
[2019-03-20] MEDS: Phenazopyridine 95 MG Tablet 190 MG PO (22:52)
--- NOTE | 2019-03-20 23:30 | MRI_ITS ---
STUDY: MRI CERVICAL SPINE WITHOUT CONTRAST REASON FOR EXAM: Female, 48 years old. Chest pain. Paresthesias. TECHNIQUE: Standardized fat and water weighted pulse sequences were obtained in the sagittal and axial planes. COMPARISON: None FINDINGS: Normal foramen magnum and brainstem-cervical cord junction. Normal craniovertebral junction. Normal anterior atlantoaxial articulation. Normal odontoid process. Normal cervical lordosis. Normal vertebral bodies and posterior osseous elements. C2-3: Normal endplates. Disc bulge. Normal central canal and intervertebral neural foramina. C3-4: Normal endplates. Normal disc height, signal and morphology. Normal central canal and intervertebral neural foramina. Facet spurring on the left. C4-5: Normal endplates. Normal disc height, signal and morphology. Normal central canal. Facet spurring on the left. Left foraminal narrowing. C5-6: Normal endplates. Normal disc height, signal and morphology. Normal central canal and intervertebral neural foramina. Facet spurring on the left more than the right C6-7: Normal endplates. Normal disc height, signal and morphology. Normal central canal and intervertebral neural foramina. Facet spurring C7-T1: Normal endplates. Normal disc height, signal and morphology. Normal central canal and intervertebral neural foramina. Normal cervical cord. Normal visualized soft tissue structures. MRI/Spine Cervical (Routine) IMPRESSION: No disc herniation. Facet arthropathy on the left more than the right. Left foraminal narrowing at C4-5. Electronically Signed: Benson Cruz MD at 13:27 EST , Service support ,
[2019-03-21 02:51] VITALS: BP 153/96; PULSE 86; RESP 14; TEMP 36.8; O2SAT 98
[2019-03-21 03:16] VITALS: PULSE 82
[2019-03-21 06:20] VITALS: BP 159/95; PULSE 93; RESP 15; TEMP 36.9; O2SAT 96
[2019-03-21] MEDS: Ketorolac 15 MG/ML Vial IV (06:21)
[2019-03-21] MEDS: Phenazopyridine 95 MG Tablet 190 MG PO (06:27)
[2019-03-21 07:54] VITALS: PULSE 81
[2019-03-21] MEDS: Ferrous Gluconate 324 MG Tablet PO (08:21)
[2019-03-21] MEDS: Gabapentin 100 MG Capsule PO ×2 (08:21→11:34)
[2019-03-21] MEDS: Psyllium 1 PACKET PO (08:33)
--- NOTE | 2019-03-21 08:50 | DCINST_ITS ---
- Discharge Diagnoses Current Active Problems: Current Active and Chronic Problems Left ureteral calculus (Acute) Reason(s) for Visit for Discharge Instructions: Chest pain You will use the following diet at home:: Cardiac Your food should be the consistency of: Regular Your liquids should be the consistency of: Regular/Thin Discharge Activity: May not drive while taking narcotic pain medications., May Shower May resume sexual activity in: 2 weeks Call your doctor if you observe: Fever of 101 or Higher, Inability to urinate, Shortness of breath, Chest pain, Calf discomfort, Uncontrolled pain Additional Instructions: Continue to follow all the instructions given to you by Dr. Duke. Continue to hydrate yourself. Follow-up with your primary care doctor within 1-2 weeks. Allergies/Adverse Reactions: Allergies gluten Allergy (Verified 03/19/19 15:54) Food Allergy Medications to take at Discharge Amlodipine [Norvasc] 5 mg PO DAILY 02/23/19 Ethinyl Estradiol/Drospirenone [Ocella 3 mg-0.03 mg Tablet] 1 ea PO DAILY 02/23/19 Ferrous Gluconate 324 mg PO DAILY 03/19/19 Hyoscyamine [Levsinex] 0.125 mg PO Q12H PRN PRN 03/19/19 Psyllium [Metamucil] 1 packet PO DAILY PRN PRN 03/19/19 Primary Care Physician: Tank Tran MD [Primary Care Provider] - Please follow up with your Primary Care Physician in: within 1-2 weeks Test Results: Test results from this visit will be discussed in further detail at your follow- up appointment, if applicable. Please Follow Up With: Yuli Duke MD When: call office for appt in 2-3 weeks Proposed Discharge Date: 03/21/19
--- NOTE | 2019-03-21 09:17 | DS.PCM_ITS ---
Discharge Date and Diagnosis Date of Admission: 03/19/19 Date of Discharge: 03/21/19 - Primary Discharge Diagnosis Active and Suspected Problems Left ureteral calculus (Acute) Chest pain Hospital Course and Treatment Imaging Results: Clinical Impression(s) from Imaging Studies Chest X-Ray 03/19/19 13:26 IMPRESSION: Normal x-ray examination of the chest. Large hiatal hernia. Electronically Signed: Cortez Purvismae, at 14:04 EST , Service support , Soft Tissue Neck CT 03/19/19 20:07 IMPRESSION: No dominant mass. Mildly enlarged lymph nodes. Cervical spondylosis. Electronically Signed: Benson Cruz MD at 20:46 EST , Service support , Cervical Spine MRI 03/20/19 23:30 IMPRESSION: No disc herniation. Facet arthropathy on the left more than the right. Left foraminal narrowing at C4-5. Electronically Signed: Benson Cruz MD at 13:27 EST , Service support , Urology Operations: None Procedures: - - cystoscopy, left ureteroscopy, holmium laser lithotripsy, stone basket extraction, left ureteral stent insertion Summary of Care Provided: The patient is a 48 year old F who was admitted with complains of chest pain after being seen by her urologist and PCP. She had complained to both of them about CP that has been occurring on and off over the last 6 weeks. Chest pain was left sided with radiation/ burning into her L arm and some intermittent numbness to her hand. Her symptoms are not specifically related to exertion. It occurs at rest and with exertion. She states that she also having some nausea but this has been ongoing as she needs her gallbladder removed. She was due for a urological procedure the next day to remove a kidney stone. Admitting EKG was unremarkable. Troponins were negative. Labs were normal. She underwent a stress test that was negative. MRI of neck did not show disc herniation. Facet arthropathy on the left more than the right. Left foraminal narrowing at C4-5. She subsequently also underwent cystoscopy, left ureteroscopy, holmium laser lithotripsy, stone basket extraction, left ureteral stent insertion. She was monitored overnight with no new complaints. She was discharged the next morning with instructions to pull the urethral stent string and follow-up with urology in the outpatient. She was given a prescription for gabapentin. She will follow-up with your primary care doctor within 1 to 2 weeks. Subjective: Day of discharge, patient was seen and examined. Denied any new complaint. She felt improved. - Physical Exam Vitals/I&O's: Vital Signs Temp Pulse Resp BP Pulse Ox 98.4 F 81 15 159/95 H 96 03/21/19 06:20 03/21/19 07:54 03/21/19 06:20 03/21/19 06:20 03/21/19 06:20 Oxygen Flow Rate (L/min) 6 Oxygen Delivery Method Room Air Weight: 107.5 kg Body Mass Index (BMI) 37.2 Intake and Output for Last 24 Hours 03/19/19 03/20/19 03/21/19 23:59 23:59 23:59 Intake Total 790 / 1590 1200 / 1200 Output Total 200 / 200 Balance 590 / 1390 1200 / 1200 General: Alert, Oriented x3, Cooperative, No apparent distress, - - obese HEENT: Atraumatic, PERRLA, EOMI, Normocephalic Oral: Moist Mucosa Neck: Supple Lungs: Clear to auscultation, Normal air movement Cardiovascular: Regular rate, Regular Rhythm, Normal S1, Normal S2, No murmurs Abdomen: Bowel Sounds Present, Soft, Non Tender, Non-Distended, No Hepato- splenomegaly Extremities: No edema Skin: No rashes, No breakdown Musculoskeletal: No Tenderness to Palpation of Joints or Extremities Lymphatic: No Cervical, Supraclavicular, or Inguinal Adenopathy Neurological: Cranial nerves II-XII grossly intact, Neuro grossly intact Psych/Mental Status: Normal Affect, Appropriate Microbiology Past 72 Hours 03/20/19 11: Mucosa - Nose Respiratory Panel (PCR) - Final 03/20/19 03:00 Urine, Clean Catch Streptococcus pneumoniae Antigen (M - Final 03/20/19 03:00 Urine, Clean Catch Legionella Antigen - Final Laboratory Results 03/20/19 14:49: POC Glucose 98 03/20/19 16:36: Stone Size Pending, Stone Weight Pending, Stone Color Pending Current Medications Acetaminophen (Tylenol) 650 mg PO Q6H PRN PRN PRN Reason: Non-cardiac pain (mod-severe) Last Admin: 03/20/19 13:27 Dose: 650 mg Documented by: Hydrocodone Bitart/Acetaminophen ([place] 5mg-325mg) 1 - 2 tablet PO Q4H PRN PRN PRN Reason: Pain Score 4-10/10 Last Admin: 03/20/19 00:51 Dose: 1 tablet Documented by: Al Hydroxide/Mg Hydroxide (Mylanta Ii) 15 - 30 ml PO Q4H PRN PRN PRN Reason: INDIGESTION Albuterol Sulfate (Ventolin Aerosols) 2.5 mg INHALATION Q2H PRN PRN PRN Reason: dyspnea, wheezing Amlodipine Besylate (Norvasc) 5 mg PO QHS [facility] Last Admin: 03/20/19 22:51 Dose: Not Given Documented by: Ferrous Gluconate (Ferrous Gluconate) 324 mg PO DAILY [facility] Last Admin: 03/21/19 08:21 Dose: 324 mg Documented by: Gabapentin (Neurontin) 100 mg PO TIDCM [facility] Last Admin: 03/21/19 08:21 Dose: 100 mg Documented by: Hydralazine HCl (Apresoline Iv) 10 mg IV Q4H PRN PRN PRN Reason: SBP > 160 Hyoscyamine Sulfate (Levsin/Sl) 0.125 mg PO Q12H PRN PRN PRN Reason: GI CRAMPING Sodium Chloride () 250 mls @ 15 mls/hr IV .[id number] PRN PRN Reason: Saline Flush Ketorolac Tromethamine (Toradol) 15 mg IV Q8 [facility] Stop: 03/21/19 14:01 Last Admin: 03/21/19 06:21 Dose: 15 mg Documented by: Magnesium Hydroxide (Milk Of Magnesia) 30 ml PO DAILY PRN PRN Reason: Constipation Morphine Sulfate () 1 - 2 mg IV Q4H PRN PRN PRN Reason: Pain Score 1-10/10 Nitroglycerin (Nitrostat) 0.4 mg SUBLINGUAL Q5M PRN PRN Reason: CHEST PAIN Last Admin: 03/19/19 20:31 Dose: 1 tab Documented by: Ondansetron HCl (Zofran) 4 mg IV Q8H PRN PRN PRN Reason: NAUSEA/VOMITING Last Admin: 03/20/19 13:27 Dose: 4 mg Documented by: Phenazopyridine HCl (Azo Standard) 190 mg PO TID PRN PRN Reason: BLADDER SPASM Last Admin: 03/21/19 06:27 Dose: 190 mg Documented by: Psyllium Hydrophilic Mucilloid (Metamucil) 1 packet PO DAILY PRN PRN PRN Reason: fiber Last Admin: 03/21/19 08:33 Dose: 1 packet Documented by: Sodium Chloride () 10 - 40 ml IV UD PRN PRN Reason: SALINE FLUSH Last Admin: 03/20/19 13:27 Dose: 10 ml Documented by: Discharge Diet: 2000 mg Sodium Diet Discharge Activity: May not drive while taking narcotic pain medications., May Shower May resume sexual activity in: 2 weeks Call your doctor if you observe: Fever of 101 or Higher, Inability to urinate, Shortness of breath, Chest pain, Calf discomfort, Uncontrolled pain Home Medications: Medications to take at Discharge Amlodipine [Norvasc] 5 mg PO DAILY 02/23/19 Ethinyl Estradiol/Drospirenone [Ocella 3 mg-0.03 mg Tablet] 1 ea PO DAILY 02/23/19 Ferrous Gluconate 324 mg PO DAILY 03/19/19 Hyoscyamine [Levsinex] 0.125 mg PO Q12H PRN PRN 03/19/19 Psyllium [Metamucil] 1 packet PO DAILY PRN PRN 03/19/19 Gabapentin [Neurontin] 100 mg PO TID 30 Days #90 cap 03/21/19 Following Prescrptions Were Given to Patient: Gabapentin [Neurontin] 100 mg PO TID 30 Days #90 cap Transmission Status: Received by [id number] Primary Care Physician: Tank Tran MD [Primary Care Provider] - Please follow up with your Primary Care Physician in: within 1-2 weeks Please Follow Up With: Yuli Duke MD When: call office for appt in 2-3 weeks Additional Instructions: remove string stent on Saturday morning. Disposition: Home Minutes spent on discharge:: 40 Patient Condition:: Stable Medical Necessity - Tobacco Use Smoking Status: Never smoker Tobacco Use: Secondhand Meaningful Use Info Meaningful Use Diagnoses (Choose all that apply): None applicable Code Visit OBSV E&M: 35016 Observation care discharge
[2019-03-21 11:17] VITALS: BP 157/90; PULSE 107; RESP 107; TEMP 36.9; O2SAT 96
[2019-03-21] MEDS: ETHINYL ESTRADIOL/DROSPIRENONE 1 EACH TABLET PO (11:17)
[2019-04-01 16:32] LABS: Ca Oxalate, Monohydrate 75 % (.); Calcium Phosphate 23 % (.); Size 2x1x1 mm (.)
== END 2019-03-21 08:40 | disposition home or self-care (01) ==
LOC: ED 15:05 → PCU 19:09
PROVIDERS: Anesthesiology; Admitting Provider Internal Medicine; Emergency Provider Emergency Medicine; Family Provider Family Medicine; PCP Family Medicine; Referring Provider Urology; Visit Provider Internal Medicine
PROC: 0TJ98ZZ Inspection of Ureter, Via Natural or Artificial Opening Endoscopic (ICD-10-PCS; CPT 52352; principal; 2019-03-20 14:50)
DX: N13.2 Hydronephrosis with renal and ureteral calculous obstruction (principal); R07.89 Other chest pain; I10 Essential (primary) hypertension; Z79.899 Other long term (current) drug therapy; K21.9 Gastro-esophageal reflux disease without esophagitis; R06.02 Shortness of breath; K44.9 Diaphragmatic hernia without obstruction or gangrene; K81.1 Chronic cholecystitis; E66.9 Obesity, unspecified; Z68.37 Body mass index [BMI] 37.0-37.9, adult; Z71.3 Dietary counseling and surveillance; K90.0 Celiac disease; I44.4 Left anterior fascicular block; R94.31 Abnormal electrocardiogram [ECG] [EKG]
CPT/HCPCS: 52356; 36415; 70490; 71045; 72141; 76000; 78452; 80048; 80053; 80061; 81025; 82360; 82962; 84484; 85025; 85027; 85610; 87449; 87633; 93005; 93017; 96365; 96366; 96367; 96375; 96376; 99218; 99285; A9500; J7120; A4216; C1769; C2617; G0378; J2405

== ENCOUNTER 2019-03-24 12:59 | Emergency (ER) | payer BC, SELFPAY ==
[2019-03-20 13:21] VITALS: BMI 37.2
[2019-03-24 12:59] VITALS: BP 160/101; PULSE 108; RESP 16; TEMP 36.3; O2SAT 97; BMI 37.5
--- NOTE | 2019-03-24 13:24 | CT_ITS ---
STUDY: CT ABDOMEN AND PELVIS WITHOUT CONTRAST REASON FOR EXAM: Female, 48 years old. RADIATION DOSAGE (If Supplied By Facility): CTDIvol = ( 23.61 ) mGy, DLP = ( 1226.9 ) mGycm TECHNIQUE: Transaxial images were obtained from the dome of the diaphragm to the symphysis pubis without oral contrast, and without intravenous contrast. Sagittal and coronal images were reconstructed. Individualized dose optimization techniques were used for this CT. COMPARISON: February 23, 2090 FINDINGS: There is large hiatal hernia with omentum, part of small and large bowel and the entire stomach in the chest. The liver and spleen are normal in size and attenuation no focal lesion noted. There are multiple gallstones. Both kidneys are relatively small but. A tiny stone is present in the lower aspect of the right kidney. There is mild hydronephrosis on the left side with dilated renal pelvis and left ureter down to the UV junction where there is a very tiny calcification represents tiny obstructing stone. The small and large bowel are unremarkable. The urinary bladder and uterus are within normal limits otherwise CT/Abdomen/Pelvis without Cont IMPRESSION: Large hiatal hernia that contains the entire stomach part of small and large bowel including omentum. Tiny stone lower aspect of the right kidney Tiny stone in the distal left ureter at the UV junction causing mild obstructive uropathy with dilatation of the left renal pelvis and left ureter. Electronically Signed: Margareth Reardon, at 14:55 EST Tel , Service support ,
[2019-03-24] MEDS: Ondansetron 4 MG/2 ML Vial IV (13:28)
[2019-03-24] MEDS: Morphine 4 MG/ML Syringe IV ×2 (13:28→15:49)
[2019-03-24] MEDS: 0.9% Normal Saline 1,000 ML 250 ML IV (13:30)
[2019-03-24] MEDS: Ketorolac 30 MG/ML Syringe IV (13:32)
[2019-03-24 13:38] LABS: Absolute Lymphocyte Count 2.12 X10^3/uL (0.83-4.51); Absolute Neutrophil Count 5.6 X10^3/uL (2.0-7.7); Basophil# 0.05 X10^3/uL; Basophil% 0.6 % (0-1); Eosinophil# 0.16 X10^3/uL; Eosinophils% 1.9 % (0-5); Hematocrit 36.9 % (37-47); Hemoglobin 12.6 g/dL (12.0-15.0); Lymphocyte # 2.12 X10^3/ul (4.0); Lymphocyte % 24.9 % (19-41); Mean Corp Hgb Conc 34.1 g/dL (32-36); Mean Corpuscular Hgb 28.2 pg (27.0-32.0); Mean Corpuscular Volume 82.6 fL (81-99); Monocyte# 0.55 X10^3/uL; Monocyte% 6.5 % (0-10); NRBC Flagged by Analyzer 0 % (0-5); Neutrophil % 65.7 % (47-70); Platelet Count 287 K/mm3 (150-450); RBC Distribution Width CV 12.7 % (11.6-14.6); RBC Distribution Width SD 38.5 fl (35.1-43.9); Red Blood Count 4.47 M/mm3 (4.2-5.4); White Blood Count 8.5 K/mm3 (4.4-11.0)
[2019-03-24 13:40] LABS: Bacteria 0 SEEN /hpf (None Seen); Mucous, Urine 0 SEEN /hpf (<or=2+)
[2019-03-24 13:41] LABS: Color, Urine Yellow (Yellow); Glucose, Dipstick Normal (Normal); Ketone-Dipstick Negative (Negative); Leukocyte Esterase-Dipstick Negative /ul (Negative); Nitrite-Dipstick Negative (Negative); Occult Blood-Urine 250 /ul (Negative); Protein-Dipstick 30 mg/dl (Negative); Urine Bilirubin Dipstick Negative (Negative); Urine Clarity Clear (Clear); Urine Urobilinogen Normal (Normal)
[2019-03-24 13:51] LABS: Anion Gap 8 (5-15); BUN 13 mg/dL (7-18); BUN/Creat Ratio 13.6 RATIO (10-20); Calcium,Total 8.8 mg/dL (8.5-10.1); Chloride 107 mmol/L (98-107); Creatinine, Serum 0.96 mg/dL (0.55-1.02); EST Glomerular Filtration Rate 66 mL/min (>60); Est Glom Filt Rate - Afr Amer 80 mL/min (>60); Estimated Creatinine Clearance 69.69 ml/min; Glucose 91 mg/dL (74-106); Potassium 3.6 mmol/L (3.5-5.1); Sodium Level 138 mmol/L (136-145)
[2019-03-24 13:54] LABS: Red Blood Cells-Urine 5-10 SEEN /hpf (0-5); Squamous Epithelial Cells - UA 0-5 SEEN /hpf (5-10); White Blood Cells 0-5 SEEN /hpf (0-5)
--- NOTE | 2019-03-24 15:31 | ED.DCSUM_ITS ---
- ER Visit Summary Date of Service: 03/24/19 Chief Complaint: Left lower quadrant abdominal pain History of Present Illness: The patient is a 48 F who presents with left lower quadrant abdominal pain that became worse today. Patient describes her pain as sharp and cramping. Patient states the pain is over the left lower quadrant. Patient admits to some nausea but denies any vomiting. Patient admits to some diarrhea but denies any melena or hematochezia. Patient denies any dysuria or hematuria. Patient states she has been having some difficulty urinating. Patient had recent ureteral stent placement and her stent was removed 2 days ago. Patient states the pain is been waxing and waning since that time but became severe today. Physical Examination: Vital signs are stable. Patient is afebrile. Patient is in no acute distress. Oral mucosa is pink and moist. Neck is supple. Trachea is midline. There is no JVD. Heart was regular rate and rhythm. Lungs are clear and equal bilaterally. Abdomen is soft. Bowel sounds are normal. There is tenderness over the left lower quadrant. There is no rebound or guarding noted. There is no CVA tenderness. Cranial nerves II through XII are intact. There are no focal motor or sensory deficits noted. Test Results: CBC and basic metabolic profile were within normal limits. Urinalysis does not show any evidence of urinary tract infection. Occult blood was 250, and there were 5-[address] scan of the abdomen pelvis was obtained. There is a tiny left distal ureteral calculus with obstruction. This was interpreted by the radiologist and reviewed by myself. Emergency Department Course and Treatment: Patient was given IV fluids. Patient was given an injection of Toradol, Zofran, and morphine. Patient had improvement of her pain with this. Patient stated that her pain was starting to return on reevaluation. Patient was given a repeat dose of morphine. Case was discussed with Dr. Duke. She will follow-up with the patient as an outpatient. Patient was given prescriptions for Flomax, Ferguson, and Toradol. Patient understood and was agreeable with the plan. All questions were answered. Disposition: Discharge home Impression: Left ureteral calculus This note was generated with [employer] software. It may contain incorrect words, spelling, and punctuation that were not noted in review of the chart prior to signing ED Disposition - Plan for ED Patient: Disposition: Home or Assisted Living Diagnosis: Left ureteral calculus Instructions: KIDNEY STONE w/ Colic Prescriptions: Tamsulosin HCl [Flomax] 0.4 mg PO DAILY #7 cap Prescription Printed Hydrocodone Bitart/Apap 5-325 [[place] 5MG-325MG] 1 tab PO Q4H PRN PRN 2 Days #10 tab PRN Reason: Pain Prescription Printed Ketorolac [Toradol] 10 mg PO Q6H PRN #8 tab PRN Reason: Pain/Inflammation Prescription Printed Referrals: Tank Tran MD [Primary Care Provider] - 1-2 Weeks Yuli Duke MD [STAFF PHYSICIAN] - 3-5 Days
[2019-03-24 15:53] VITALS: BP 159/88; PULSE 100; RESP 18; O2SAT 98
[2019-03-24 16:22] VITALS: BP 131/83; PULSE 80; RESP 18; O2SAT 98
== END 2019-03-24 16:23 | disposition home or self-care (01) ==
PROVIDERS: Emergency Provider Emergency Medicine; Family Provider Family Medicine; PCP Family Medicine
DX: N20.1 Calculus of ureter (principal); I10 Essential (primary) hypertension; E66.9 Obesity, unspecified; Z68.37 Body mass index [BMI] 37.0-37.9, adult; Z87.442 Personal history of urinary calculi
CPT/HCPCS: 74176; 80048; 81001; 85025; 99283; J7030; A4216; J2405

== ENCOUNTER → 2019-04-03 14:50 | Outpatient (CLI) | payer BC, SELFPAY ==
[2019-03-25 08:33] VITALS: BMI 37.5
--- NOTE | 2019-04-03 14:54 | US_ITS ---
STUDY: RENAL ULTRASOUND - COMPLETE REASON FOR EXAM: Female, 48 years old. Kidney stones TECHNIQUE: Ultrasound evaluation of the kidneys was performed with real-time and static weinberg-scale imaging. COMPARISON: None. FINDINGS: RIGHT KIDNEY: Normal location of the right kidney, which is normal in size. The right kidney measures 11.0 x 5.3 x 4.4 cm. There is a normal cortex of the right kidney. The renal cortex measures 1.7 cm. There is no right renal mass or cyst. There is a 6 mm echogenic focus without posterior acoustic shadowing which may relate to small nonobstructing stone or vascular calcification. There is no right hydronephrosis. DISTAL RIGHT URETER: There is non-visualization of the distal right ureter. There is no demonstrated right ureterovesical junction calculus. There is a visualized right ureteral jet. LEFT KIDNEY: Normal location of the left kidney, which is normal in size. The left kidney measures 12.2 x 4.7 x 5.8 cm. There is a normal cortex of the left kidney. The renal cortex measures 2.2 cm. There is no left renal mass or cyst. There are no left renal calculi. There is no left hydronephrosis. DISTAL LEFT URETER: There is non-visualization of the distal left ureter. There is no demonstrated left ureterovesical junction calculus. There is a visualized left ureteral jet. BLADDER: The distended urinary bladder has a volume of 271 ml. There is a normal wall thickness of the distended urinary bladder. There is no demonstrated mass within the urinary bladder. There are no demonstrated bladder calculi. US/Kidney and Bladder IMPRESSION: There is a 6 mm echogenic focus without posterior acoustic shadowing which may relate to small nonobstructing stone or vascular calcification. Electronically Signed: Stephen Proctor DO at 18:20 EST Tel [phone], Service support ,
== END ==
PROVIDERS: Family Provider Family Medicine; PCP Family Medicine; Referring Provider Urology; Visit Provider Urology
DX: N20.0 Calculus of kidney (principal)
CPT/HCPCS: 76770

== ENCOUNTER 2019-04-07 12:22 | Day surgery (SDC) | payer BC, SELFPAY ==
[2019-03-25 08:33] VITALS: BMI 37.5
--- NOTE | 2019-03-25 09:04 | HP_ITS ---
Intake Vital Signs 03/25/19 Body Mass Index (BMI) 37.5 03/25/19 Height 5 ft 7 in 03/25/19 Weight: 241 lb 03/25/19 Body Mass Index (BMI) 37.7 03/25/19 Blood Pressure 122/88 H 03/25/19 Blood Pressure Location Rt brachial 03/25/19 Blood Pressure Position Sitting 03/25/19 Respiratory Rate 18 03/25/19 Pulse Rate 103 H 03/25/19 Pulse Source Monitor 03/25/19 Temperature 97.6 F L 03/25/19 Temperature Source Oral 03/25/19 Pulse Ox 98 03/25/19 Oxygen Delivery Method room air Intake Visit Reasons: GALLSTONES/US @ [facility] 03/10/19 Chief Complaint: abdominal pain Psychotherapist Counselor Required: No Is patient in pain?: No Allergies gluten Allergy (Verified 03/25/19 08:29) Food Allergy Medications Amlodipine [Norvasc] 5 mg PO DAILY 02/23/19 [History Confirmed 03/25/19] Ethinyl Estradiol/Drospirenone [Ocella 3 mg-0.03 mg Tablet] 1 ea PO DAILY 02/23/19 [History Confirmed 03/25/19] Ferrous Gluconate 324 mg PO DAILY 03/19/19 [History Confirmed 03/25/19] Hyoscyamine [Levsinex] 0.125 mg PO Q12H PRN PRN 03/19/19 [History Confirmed 03/25/19] Psyllium [Metamucil] 1 packet PO DAILY PRN PRN 03/19/19 [History Confirmed 03/25/19] Gabapentin [Neurontin] 100 mg PO TID 30 Days #90 cap 03/21/19 [Rx Confirmed 03/25/19] Hydrocodone Bitart/Apap 5-325 [[place] 5MG-325MG] 1 tab PO Q4H PRN PRN 2 Days #10 tab 03/24/19 [Rx Confirmed 03/25/19] Ketorolac [Toradol] 10 mg PO Q6H PRN #8 tab 03/24/19 [Rx Confirmed 03/25/19] PFSH Medical History Left ureteral calculus (Acute) Abdominal pain (Acute) Celiac disease (Acute) Nausea (Acute) Surgical History History of breast surgery (Acute) Family History Mother Diabetes Osteoporosis CVA (cerebral vascular accident) Father Heart disease Social History (Updated 03/25/19 @ 09:04 by Rey Hurtado MD) Smoking Status: Never smoker alcohol intake: never substance use type: does not use HPI HPI HPI: WATSON LEE, is a 48 F who presents to the office today for HPI HPI Surgical H&P: Yes HPI: WATSON LEE, is a 48 F who presents to the office today for Evaluation of symptomatic cholelithiasis. Patient has been recently treated for kidney stones and she also has a history of celiac disease. But she has had a one-month history of epigastric pain nausea and discomfort in the right upper quadrant particularly after she eats. She has had a gallbladder ultrasound which showed multiple gallstones and a gallbladder which was normal thickness. There was no pericholecystic fluid. She did state that there was some discomfort when she underwent this exam. She has not been experiencing radha colored stools and her urine is normal color. ROS General General: Yes fatigue; no weight change, appetite, colon cancer, breast cancer or weakness HEENT HEENT: No difficulty swallowing, eye injury, eye surgery, swollen glands or hoarseness Endo Endocrine: No thyroid disease, diabetes mellitus, thyroid cancer, Hair loss, heat intolerance or cold intolerance Skin Skin: No rash or changing moles Breast Breast: No left breast lump, right breast lump, nipple discharge, breast pain, abnormal mammogram, abnormal US or breast enlargement Musc Musculoskeletal: No back problems, arthritis, rheumatoid arthritis, gout or joint pain Cardio Cardiovascular: No murmur, pacemaker, heart disease, atrial fibrillation, high blood pressure, heart attack, heart stent, palpitations, shortness of breat with exertion or chest pain Psych Psychiatric: No depression, anxiety or hearing voices Resp Respiratory: No shortness of breath, No sleep apnea, No cough, No COPD, No asthma, No emphysema, No wheezing Gastro Gastrointestinal: Yes abdominal pain, Yes nausea or vomiting, Yes diarrhea, Yes constipation, No blood in stool, No acid reflux, Yes hemorrhoids, No ulcers, Yes gallbladder problem, No black,tarry stools Geovanny Hematologic: No blood thinners, No blood disorders, No bleeding, No anemia, No blood clots Neuro Neurologic: No system reviewed and no additional complaints, except as docu, No as per HPI, No abnormal walking, No abnormal hearing, No abnormal movements, No abnormal speech, No behavioral changes, No burning sensations, No confusion, No seizure-like activity, No unsteadiness, No dizziness, No localized weakness, No frequent falls, No headache(s), No lack of coordination, No loss of vision, No memory loss, No numbness, No other visual disturbances, No radiating pain, No restless legs, No sensory deficit, No fainting, No tingling, No tremor(s), No weakness, No other Exam Const General: no acute distress, well developed, well hydrated Orientation: oriented to person, oriented to place, oriented to time [facility] Head: normocephalic, atraumatic Ears: external ears normal Mouth: moist mucous membranes Eyes Sclera: sclerae normal Pupils: normal by confrontation Neck Neck: no lymphadenopathy noted Neck mass: No Thyroid: thyroid normal, symmetrical Chest Chest palpation & inspection: normal inspection of the chest Breast Palpation: No nipple discharge Resp Effort & Inspection: normal respiratory effort Auscultation: clear to auscultation bilaterally Percussion: percussion normal Cardio Rate: regular rate Rhythm: regular rhythm Heart Sounds: no murmurs GI Palpation: soft, no hepatosplenomegaly, no masses, tender Auscultation: normal bowel sounds Rectal Exam: other Other: Rectal exam deferred. Extrem General: normal to inspection, no clubbing, cyanosis or edema Assessment & Plan Problems 1. Calculus of gallbladder with chronic cholecystitis without obstruction K80.10 Plan Reviewed the anatomy with the patient and discussed the procedure: Robotic assisted laparoscopic cholecystectomy with possible cholangiograms, possible open. Review risks including but not limited to bleeding, infection, hernia, bile leak, retained gallstones requiring another procedure ERCP- Endoscopic Retrograde Cholangiopancreatography, injury to another organ (bile ducts, common bile duct, small bowel, etc.) and conversion to an open procedure. All questions were answered. Coding Level of Care Code Off vis,new,level 3 Diagnoses Calculus of gallbladder with chronic cholecystitis without obstruction K80.10 ??Cholelithiasis location: gallbladder ??Cholecystitis acuity: chronic 03/25/19 0904 <Electronically signed by Rey salgado MD> Date _ Rey Hurtado MD I have re-examined the patient. There are no clinical changes since date of exam.
[2019-04-07] VITALS (20 sets, daily range): BP systolic 94–149; BP diastolic 55–93; PULSE 72–98; RESP 16–18; TEMP 36.3–36.6; O2SAT 90–99; BMI 35.4
[2019-04-07 13:41] LABS: Internal QC Validated? YES +Cl - CLEAR BKGD; Pregnancy, Urine Negative Negative
[2019-04-07] MEDS: Lactated Ringers 1,000 ML 100 ML IV ×2 (13:48→18:35)
--- NOTE | 2019-04-07 14:25 | GALL_PTH ---
PATIENT: WATSON LEE [place] [facility] [place][id number] AGE/SX: 48/F ROOM: RE04/07/[address]: Dr. eRy Hurtado MD : 1970 BED: DIS: 04/07/2019 SPEC #: [id number] RECD: 04/07/19 17:18 STATUS: SANA REZay #: [id number] COLIN: 04/07/19 14:[address]: Rey Hurtado DEPT: SURGICAL PATHOLOGY RECD BY: Miguel Angel Cohen ENTERED: 04/08/19 09:55 SP TYPE: ANASTACIO PICKERING DR: Dr. Fran Tarn MD Tissues: Gallbladder, NOS Procedures: Surgery Specimen Level III HEADER OPERATION: Robotic cholecystectomy PRE-OP DIAGNOSIS: Calculus of gallbladder with chronic cholecystitis without obstruction K80.10 TISSUE SUBMITTED: Gallbladder MICROSCOPIC DIAGNOSIS Gallbladder, cholecystectomy: Mild chronic cholecystitis and cholelithiasis. SJ:adriana 04/09/19 MICROSCOPIC DESCRIPTION Slides are reviewed. GROSS DESCRIPTION Received is one container labeled with the patient's name and designated gallbladder. The specimen consists of a gallbladder measuring 10 cm in length and up to 5 cm in diameter. The external surface is pink-calles, smooth and glistening for the most part. Focally it is granular, hemorrhagic and contains cautery artifact. The gallbladder contains seven multifaceted greenish-brown stones measuring in aggregate 4.5 x 2.5 x 1 cm and 1 to 1.5 cm in greatest dimension. A small amount of gallbladder sludge is also noted. The mucosa is bile-stained and without any mass lesions. The gallbladder wall measures up to 0.2 cm in thickness. Vending Machine Servicer sections from the gallbladder and the cystic duct are submitted in one cassette. / SILVANA:adriana 04/08/19 TC:3 CPT: 13805
[2019-04-07] MEDS: Cefazolin 2 GM in 0.9% Normal Saline 100 ML IV (14:53)
--- NOTE | 2019-04-07 15:15 | PCM.OPRPT ---
Problem List (1) Calculus of gallbladder with chronic cholecystitis without obstruction Status: Chronic Report of Operation Date of Procedure: 04/07/19 Pre-Operative Diagnosis: Chronic cholecystitis with cholelithiasis Post-Operative Diagnosis: Same Surgery/Procedure Performed:: Robotic assisted laparoscopic cholecystectomy Type of Anesthesia:: General Anesthesiologist: Edgar De Leon Specimen's removed: Gallbladder Estimated Blood Loss (mL): < 25 cc Fluids Replaced: 1 liter lr Description of Procedure: Patient was brought into the operating room. Placed in the supine position. Under excellent general endotracheal ovation the abdomen was sterilely prepped and draped in usual fashion. Local was injected infraumbilically. Dissection was carried down to the fascia. The fascia grasped with Jes. Varies needle was placed inside the abdomen. The abdomen was insufflated to 15 torr. A 10/12 trocar was placed without difficulty. It was flank on both sides by 2 #8 trochars both placed under direct visualization without injury to underlying structures and then further laterally on the right and another #5 trocar under direct visualization without underlying injury to any structures. Fundus of the gallbladder was grasped and retracted in cephalad direction. The bed was then placed in the head up and rotated to the right position. The robot was brought in and docked appropriately. I then dissected the cystic duct free placing hemoclips proximally and distally and ligated the duct. Identified the cystic artery placed hemoclips proximally distally and ligated the artery. I deliver the gallbladder from the gallbladder bed with use of electrocautery and had no spillage of bile or stones. Placed a specimen specimen bag and delivered through the umbilical port without difficulty. Reinspection of the liver showed to be good hemostasis. The robot was undocked trochars removed under direct visualization. Fascia the umbilical port was closed with a [id number] stitch of 0 Vicryl. Skin incisions were closed with some particular stitches of 4-0 Monocryl. Steri-Strips were applied sterile dressings were applied and the patient tolerated the procedure well. - Admit VTE Documentation VTE Present on Admission: No VTE Mechan Device Prophylaxis: SCD's VTE Pharm Prophylaxis ordered?: No Reason prophylaxis not ordered:: Treatment Not Indicated
--- NOTE | 2019-04-07 15:16 | DCINST_ITS ---
Discharge Diet: Light diet - advance as tolerated Discharge Activity: May Not Drive - for 2-3 days or while taking narcotic pain medications., - - Do not drive, work heavy equipment or sign legal documents for 24 hours. May shower in (days): 1 - with the bandage in place. Additional Activity Instructions:: Pain medication may cause nausea. You should typically eat light foods as you take your pain medications. Pain medication may also cause constipation. If this is a problem for you, please discuss with your doctor. Call your doctor if your incision/area has: Continuous Slow Oozing, Sudden Increased Bleeding, Increased Pain/ Swelling, Increased Redness, Foul Smelling Discharge Call your doctor if you observe: Fever of 101 or Higher Suture Line Care: Avoid Pulling/Pushing, Avoid Pinching/Bending Additional Dressing/Incision Instructions:: Leave operative bandaids on for 2 days. When you remove dressing, leave Steri-Strips on until your follow-up appointment, or until the Steri-Strips fall off on their own. Allergies/Adverse Reactions: Allergies gluten Allergy (Verified 04/07/19 13:37) Food Allergy Medications to take at Discharge Amlodipine [Norvasc] 5 mg PO DAILY 02/23/19 Ethinyl Estradiol/Drospirenone [Ocella 3 mg-0.03 mg Tablet] 1 ea PO DAILY 02/23/19 Ferrous Gluconate 324 mg PO DAILY 03/19/19 Hyoscyamine [Levsinex] 0.125 mg PO Q12H PRN PRN 03/19/19 Psyllium [Metamucil] 1 packet PO DAILY PRN PRN 03/19/19 Ketorolac [Toradol] 10 mg PO Q6H PRN #8 tab 03/24/19 Gabapentin [Neurontin] 100 mg PO TID PRN 04/02/19 Hydrocodone/Acetaminophen [Parthenon 5-325 Tablet] 1 ea PO PRN PRN 04/02/19 Oxycodone HCl/Acetaminophen [Percocet 5/325] 1 - 2 tablet PO Q4H PRN PRN 7 Days #30 tablet 04/07/19 The following prescriptions were given: Oxycodone HCl/Acetaminophen [Percocet 5/325] 1 - 2 tablet PO Q4H PRN PRN 7 Days #30 tablet PRN Reason: Pain Transmission Status: Received by [facility]/pharmacy #[id number] Primary Care Physician: Tank Tran MD [Primary Care Provider] - Test Results: Test results from this visit will be discussed in further detail at your follow- up appointment, if applicable. Please Follow Up With: Rey Hurtado MD - Please call [phone] to schedule an appointment. When: 7 days after your surgery.
[2019-04-07] MEDS: BUPIVACAINE LIPOSOME/PF 20 ML VIAL OPERA.SITE (15:21)
[2019-04-07] MEDS: 0.9% Normal Saline (Pres. free 10 ML Vial (15:21)
== END 2019-04-07 20:55 | disposition home or self-care (01) ==
LOC: SDC 12:23 → AC 12:24
PROVIDERS: Anesthesiology; Family Provider Family Medicine; PCP Family Medicine; Referring Provider Surgery; Visit Provider Surgery
PROC: 0FT44ZZ Resection of Gallbladder, Percutaneous Endoscopic Approach (ICD-10-PCS; CPT 47562; principal; 2019-04-07 14:05)
DX: K80.10 Calculus of gallbladder with chronic cholecystitis without obstruction (principal); K90.0 Celiac disease; I10 Essential (primary) hypertension; K44.9 Diaphragmatic hernia without obstruction or gangrene; D64.9 Anemia, unspecified; Z87.442 Personal history of urinary calculi; Z79.899 Other long term (current) drug therapy
CPT/HCPCS: 00790; 47562; S2900; 81025; 88304; 93005; J7120; J2405; J3490

== ENCOUNTER → 2019-10-27 10:00 | Outpatient (CLI) | payer BC, SELFPAY ==
[2019-04-07 13:37] VITALS: BMI 35.4
--- NOTE | 2019-10-27 10:04 | RAD_ITS ---
STUDY: X-RAY - SACRUM/COCCYX REASON FOR EXAM: Female, 48 years old. coccyx pain, fell down steps onto tailbone 12 days ago TECHNIQUE: 3 view(s) of the sacrum and coccyx were obtained. COMPARISON: None. FINDINGS: Normal bilateral sacroiliac joints. Normal visualized sacral ala and fused sacral bodies. Normal sacrococcygeal junction with a normal angulation. Normal coccygeal segments. The presacral soft tissue structures are unremarkable. There is no demonstrated fracture. RAD/Sacrum-Coccyx min 2 Views IMPRESSION: Normal x-rays of the sacrum and coccyx. Electronically Signed: Moises Gomez MD at 18:19 EDT , Service support ,
== END ==
PROVIDERS: PCP Family Medicine; Referring Provider Family Medicine; Visit Provider Family Medicine
DX: M53.3 Sacrococcygeal disorders, not elsewhere classified (principal)
CPT/HCPCS: 72220

== ENCOUNTER → 2020-12-20 08:43 | Outpatient (CLI) | payer BC, SELFPAY ==
[2020-12-20 10:34] LABS: Anion Gap 8 (5-15); BUN 8 mg/dL (7-18); BUN/Creat Ratio 11.8 RATIO (10-20); Calcium,Total 8.4 mg/dL (8.5-10.1); Chloride 105 mmol/L (98-107); Cholesterol 138 mg/dL (200); Creatinine, Serum 0.68 mg/dL (0.55-1.02); EST Glomerular Filtration Rate 98 mL/min (>60); Est Glom Filt Rate - Afr Amer 118 mL/min (>60); Glucose 114 mg/dL (74-106); High Density Lipoprotein 51 mg/dL; Potassium 3.6 mmol/L (3.5-5.1); Sodium Level 136 mmol/L (136-145); Thyroid Stim Hormone (TSH) 3.89 uIU/mL (0.358-3.74); Triglycerides 134 mg/dL; Very Low Density Lipoprotein 27 mg/dL (5-40)
[2020-12-21 08:44] LABS: T4 Free Direct 0.98 ng/dL (0.76-1.46)
== END ==
PROVIDERS: PCP Family Medicine; Referring Provider Family Medicine; Visit Provider Family Medicine
DX: R30.0 Dysuria (principal); Z13.29 Encounter for screening for other suspected endocrine disorder; I10 Essential (primary) hypertension
CPT/HCPCS: 36415; 80048; 80061; 84439; 84443; 87086; 87088

== ENCOUNTER 2021-06-19 08:39 | Outpatient (CLI) | payer BC, SELFPAY ==
[2021-06-19 12:14] LABS: Absolute Lymphocyte Count 2.64 X10^3/uL (0.83-4.51); Absolute Neutrophil Count 5.5 X10^3/uL (2.0-7.7); Basophil# 0.07 X10^3/uL; Basophil% 0.8 % (0-1); Eosinophil# 0.34 X10^3/uL; Eosinophils% 3.8 % (0-5); Hematocrit 44.3 % (37-47); Hemoglobin 14.8 g/dL (12.0-15.0); Lymphocyte # 2.64 X10^3/ul (0.83-4.51); Lymphocyte % 29.3 % (19-41); Mean Corp Hgb Conc 33.4 g/dL (32-36); Mean Corpuscular Volume 86.7 fL (81-99); Mean Platelet Vol. 11.1 fl (6.2-12.0); Monocyte# 0.43 X10^3/uL; Monocyte% 4.8 % (0-10); NRBC Flagged by Analyzer 0 % (0-5); Platelet Count 389 K/mm3 (150-450); RBC Distribution Width CV 13.1 % (11.6-14.6); RBC Distribution Width SD 41.1 fl (35.1-43.9); RET-HE 33.4 pg (30-35); Red Blood Count 5.11 M/mm3 (4.2-5.4); Reticulocyte Count 1.82 % (0.5-1.5)
[2021-06-19 12:24] LABS: Vitamin B12 289 pg/mL (211-911); Vitamin D,25 Hydroxy 25.3 ng/mL
[2021-06-19 12:32] LABS: Anion Gap 7 (5-15); BUN 10 mg/dL (7-18); BUN/Creat Ratio 13.3 RATIO (10-20); Calcium,Total 8.6 mg/dL (8.5-10.1); Chloride 107 mmol/L (98-107); Creatinine, Serum 0.75 mg/dL (0.55-1.02); EST Glomerular Filtration Rate 86 mL/min (>60); Est Glom Filt Rate - Afr Amer 104 mL/min (>60); Ferritin 29 ng/mL (8-252); Free T3 2.7 pg/mL (2.18-3.98); Glucose 114 mg/dL (74-106); Iron 77 ug/dL (50-170); Iron Binding Capacity,Total 421 ug/dL (250-450); Potassium 3.9 mmol/L (3.5-5.1); Sodium Level 136 mmol/L (136-145); T4 Free Direct 0.98 ng/dL (0.76-1.46); Thyroid Stim Hormone (TSH) 3.29 uIU/mL (0.358-3.74)
== END 2021-06-19 23:59 | disposition home or self-care (01) ==
LOC: MFPLAB 08:39
PROVIDERS: PCP Family Medicine; Visit Provider Family Medicine
DX: I10 Essential (primary) hypertension (principal); D64.9 Anemia, unspecified; E55.9 Vitamin D deficiency, unspecified
CPT/HCPCS: 36415; 80048; 82306; 82607; 82728; 83540; 83550; 84439; 84443; 84481; 85025; 85045

== ENCOUNTER 2021-07-17 09:18 | Outpatient (CLI) | payer BC, SELFPAY ==
--- NOTE | 2021-07-17 09:20 | BI_ITS ---
MAMMOGRAPHY - BILATERAL SCREENING REASON FOR EXAM: Female, 50 years old. Routine annual screening examination. PERTINENT HISTORY: Aunt with breast cancer. TECHNIQUE: Digital bilateral breast eldon (3D mammographic acquisition) in the CC and MLO projections. 2-D mediolateral oblique (MLO) and craniocaudad (CC) views of both breasts were obtained. CAD: Full Field Digital Mammography with Computer Added Detection was performed. COMPARISON: Comparison is made with prior study 12/08/2018 and 11/30/2016. FINDINGS: Breast Composition: There are scattered areas of fibroglandular density. There are no dominant masses or suspicious calcifications. Stable 4 mm well-defined nodule in the upper lateral aspect of the right breast. No other significant abnormalities are identified. There has been no significant change since the prior study. BI/SCRN MAMM (CAD)W/ELDON BILAT IMPRESSION: Stable bilateral screening mammogram. Yearly follow-up mammogram recommended. (A) ASSESSMENT CATEGORY: BIRADS Category 2: Benign. A letter regarding these results will be sent to the patient by the facility within 30 days. Approximately 10% of breast cancers are not detected by mammography. A normal mammogram should not delay biopsy of a clinically suspicious abnormality. [id number] Electronically Signed: Cortez Garcia MD at 11:16 EDT ,
== END 2021-07-17 23:59 | disposition home or self-care (01) ==
LOC: OPBI 09:18
PROVIDERS: PCP Family Medicine
DX: Z12.31 Encounter for screening mammogram for malignant neoplasm of breast (principal)
CPT/HCPCS: 77063; 77067

== ENCOUNTER 2022-02-26 11:41 | Outpatient (CLI) | payer BC, SELFPAY ==
[2022-02-26 15:31] LABS: Vitamin B12 298 pg/mL (211-911); Vitamin D,25 Hydroxy 18.5 ng/mL
[2022-02-26 15:40] LABS: Anion Gap 9 (5-15); BUN 8 mg/dL (7-18); BUN/Creat Ratio 10.9 RATIO (10-20); Calcium,Total 8.8 mg/dL (8.5-10.1); Chloride 106 mmol/L (98-107); Cholesterol 131 mg/dL (200); Creatinine, Serum 0.74 mg/dL (0.55-1.02); EST Glomerular Filtration Rate 88 mL/min (>60); Est Glom Filt Rate - Afr Amer 107 mL/min (>60); Glucose 105 mg/dL (74-106); High Density Lipoprotein 53 mg/dL; Potassium 3.6 mmol/L (3.5-5.1); Sodium Level 138 mmol/L (136-145); Thyroid Stim Hormone (TSH) 2.01 uIU/mL (0.358-3.74); Triglycerides 125 mg/dL; Very Low Density Lipoprotein 25 mg/dL (5-40)
== END 2022-02-26 23:59 | disposition home or self-care (01) ==
LOC: MFPLAB 11:42
PROVIDERS: PCP Family Medicine; Visit Provider Family Medicine
DX: I10 Essential (primary) hypertension (principal); E55.9 Vitamin D deficiency, unspecified; Z13.29 Encounter for screening for other suspected endocrine disorder; E53.9 Vitamin B deficiency, unspecified
CPT/HCPCS: 36415; 80048; 80061; 82306; 82607; 84443

== ENCOUNTER → 2023-02-20 | Outpatient (CLI) | payer BC, SELFPAY ==
[2023-02-20 13:01] LABS: Hematocrit 42.7 % (37-47); Hemoglobin 13.8 g/dL (12.0-15.0); Mean Corp Hgb Conc 32.3 g/dL (32-36); Mean Corpuscular Hgb 28.5 pg (27.0-32.0); Mean Corpuscular Volume 88.2 fL (81-99); Mean Platelet Vol. 11.5 fl (6.2-12.0); Platelet Count 376 K/mm3 (150-450); RBC Distribution Width CV 12.5 % (11.6-14.6); RBC Distribution Width SD 40.6 fl (35.1-43.9); Red Blood Count 4.84 M/mm3 (4.2-5.4); White Blood Count 10.1 K/mm3 (4.4-11.0)
[2023-02-20 13:23] LABS: Vitamin B12 232 pg/mL (211-911); Vitamin D,25 Hydroxy 35.7 ng/mL
[2023-02-20 13:36] LABS: ALB/GLOB Ratio 0.8 RATIO (0.9-2.4); AST(SGOT) 15 U/L (15-37); Alanine Aminotransfer ALT/SGPT 17 U/L (13-56); Albumin, Serum 3.3 g/dL (3.2-5.0); Alkaline Phosphatase 56 U/L (45-117); Anion Gap 6 (5-15); BUN 6 mg/dL (7-18); BUN/Creat Ratio 8.9 RATIO (10-20); Calcium,Total 8.4 mg/dL (8.5-10.1); Chloride 106 mmol/L (98-107); Creatinine, Serum 0.67 mg/dL (0.55-1.02); EST Glomerular Filtration Rate 98 mL/min (>60); Est Glom Filt Rate - Afr Amer 119 mL/min (>60); Globulin 4.1 g/dL (2.2-4.2); Glucose 115 mg/dL (74-106); Potassium 3.6 mmol/L (3.5-5.1); Protein, Total 7.4 g/dL (6.4-8.2); Sodium Level 137 mmol/L (136-145); Thyroid Stim Hormone (TSH) 2.52 uIU/mL (0.358-3.74)
== END | disposition home or self-care (01) ==
LOC: MFPLAB 10:30
PROVIDERS: PCP Family Medicine; Visit Provider Family Medicine
DX: E53.9 Vitamin B deficiency, unspecified (principal); I10 Essential (primary) hypertension; R53.83 Other fatigue; R04.0 Epistaxis; E55.9 Vitamin D deficiency, unspecified
CPT/HCPCS: 36415; 80053; 82306; 82607; 84443; 85027

== ENCOUNTER 2023-05-08 08:17 | Day surgery (SDC) | payer BC, SELFPAY ==
[2023-05-08] VITALS (19 sets, daily range): BP systolic 125–174; BP diastolic 69–104; PULSE 80–120; RESP 14–18; TEMP 36.6–36.9; O2SAT 89–98; BMI 35.8
--- NOTE | 2023-05-08 08:37 | CT_ITS ---
STUDY: CT ABDOMEN AND PELVIS WITH CONTRAST REASON FOR EXAM: Female, 52 years old. Right flank/LQ pain RADIATION DOSAGE (If Supplied By Facility): CTDIvol = ( 22.69 ) mGy, DLP = ( 1568.27 ) mGycm TECHNIQUE: Transaxial images were obtained from the dome of the diaphragm to the symphysis pubis without oral contrast. IV 100mL Isovue-300 was administered. Sagittal and coronal images were reconstructed. Individualized dose optimization techniques were used for this CT. COMPARISON: Comparison is made with prior study dated March 24, 2019. FINDINGS: Elevation/eventration of the left hemidiaphragm. The visualized portions of the heart are within normal limits. Findings suggestive of a 4 cm x 4.8 cm hemangioma in the central midportion of the right lobe of the liver. Fatty infiltration of the liver. The patient is status post cholecystectomy. Normal spleen. Normal pancreas. Normal bilateral adrenal glands. 3 mm nonobstructive calculus in the anterior midpole calyx of the right kidney. Normal left kidney. There is a moderate-sized hiatal hernia. Normal small intestine. There are scattered colonic diverticula consistent with diverticulosis. There is a tubular, thick-walled appendix (>7mm), consistent with acute appendicitis. Normal abdominal aorta. Normal inferior vena cava. Normal retroperitoneum. Normal urinary bladder. Normal abdominal wall. Normal osseous structures. CT/Abdomen/Pelvis W IV Cont ONLY IMPRESSION: Acute appendicitis with inflammatory changes in the right lower quadrant. Stable eventration of the left hemidiaphragm. Fatty infiltration of the liver. Findings suggestive of a hemangioma in the right lobe of the liver. Electronically Signed: Cortez Garcia MD at 10:24 EST ,
--- NOTE | 2023-05-08 08:48 | ED.VIS.GI ---
HPI HPI - GI History of Present Illness Chief Complaint: Abd Pain Informant: patient Narrative Narrative: Patient presents with right-sided flank lower quadrant area pain. This started about 24 hours ago. She thought it was mild at the time and it was not hurting. It is gotten progressively worse. It has never been completely in her back. It has started and stayed in the right lower quadrant. She has been able to eat and drink. She got slightly nauseated when the pain was bad. She has had kidney stones but did not think this was the same. But she did note some dark urine. Possibly a little discomfort with urination. She has had some urinary stuttering for quite some time and that it is not new. Last colonoscopy was about 7 years ago. She does have a largest degree of a hiatal hernia but has no pain in that area. She has had cholecystectomy. No appendectomy. She has had subjective fevers but when she took her temperature it was negative. PFSH PFS Medical History Abdominal pain Celiac disease Environmental allergies Hiatal hernia HTN (hypertension) Left ureteral calculus Nausea Home Medications amlodipine 5 mg tablet 5 mg PO DAILY HIGH BLOOD PRESSURE 02/23/19 [History Last Taken 05/07/23] drospirenone 3 mg-ethinyl estradiol 0.03 mg tablet 1 ea PO DAILY HORMONES 02/23/19 [History Last Taken 05/07/23] cholecalciferol (vitamin D3) 25 mcg (1,000 unit) capsule (Vitamin D3) 50 mcg PO DAILY 05/08/23 [History Last Taken 05/07/23] cyanocobalamin (vitamin B-12) 500 mcg tablet (Vitamin B-12) 1,500 mcg PO DAILY supplement 05/08/23 [History Last Taken 05/07/23] loratadine 10 mg tablet 10 mg PO DAILY allergies 05/08/23 [History Last Taken 05/07/23] omeprazole 20 mg capsule,delayed release 20 mg PO DAILY acid reflux 05/08/23 [History Last Taken 05/07/23] Allergy/AdvReac Type Severity Reaction Status Date / Time gluten Allergy Food Verified 05/08/23 08:28 Allergy Family History Mother Diabetes Osteoporosis CVA (cerebral vascular accident) Heart disease Hypertension Father Heart disease Surgical History History of breast surgery Hx laparoscopic cholecystectomy Social History Smoking Status: Never smoker alcohol intake: never substance use type: does not use ROS ROS ED ROS Narrative A complete review of systems was performed and is negative except as documented in the history of present illness. Some specific details below. Constitutional: No recent measured fevers but she has subjectively been hot and cold. EYE: No visual complaints or pain. ENT: No difficulty swallowing. No swelling. No pain. No GERD. She has a history of hiatal hernia but not having issues. CV: No chest pain or palpitations. Respiratory: No dyspnea. No hemoptysis. No difficulty taking breaths. GI: Please see history of present illness. : No frequency but she had minimal dysuria and slight darkening of the urine. No actual blood seen. Musculoskeletal: No recent trauma. No pains. None of the pain is ever gone into her back Skin: No rash. Nondiaphoretic. Neuro: No weakness or numbness. Endocrine: No polyuria or polydipsia. EXAM Physical Exam Const Vital Signs: 05/08/23 08:17 05/08/23 10:42 05/08/23 10:42 Temperature 98 F 98.1 F 98.4 F Temperature Source Oral Oral Pulse Rate 120 H 102 H 103 H Respiratory Rate 18 18 16 Blood Pressure 174/95 H 164/102 H 162/104 H Blood Pressure Mean 121 122 123 Blood Pressure Source Blood Pressure Position Blood Pressure Location Pulse Ox 98 98 98 Oxygen Delivery Method Room Air Room Air 05/08/23 10:47 05/08/23 10:47 Temperature 98.4 F 98.4 F Temperature Source Oral Oral Pulse Rate 104 H 104 H Respiratory Rate 16 16 Blood Pressure 162/104 H 162/104 H Blood Pressure Mean 123 123 Blood Pressure Source Monitor Blood Pressure Position Supine Blood Pressure Location Right Arm Pulse Ox 98 98 Oxygen Delivery Method Room Air Room Air MDM MDM MDM Narrative Medical decision making narrative: My independent interpretation of the patient's CT scan is concerning for appendicitis. I did discuss this with Dr. Chakraborty on for surgery. The final reading is pending at this time. Patient's electrolytes show minimally low potassium at 3.3. Glucose is mildly up at 139. Patient's is negative. Graph his liver function test is normal. Patient CBC does show some white cells but is also a poor nonclean-catch. I will send this for culture. She is being treated with antibiotics for the appendicitis either case. Jefe final reading is also ending to acute appendicitis. Dr. Maxwell seen the patient and ED. Plan is surgery. I have added on CBC. When I initially clicked the labs I click CMP rather than CBC. This is pending. Patient CBC does come back with significantly elevated white count at 17.5. This supports the diagnosis but does not change her management at this time. Lab Data Attestation: I reviewed the patient's lab results. Labs: Laboratory Results - last 24 hr 05/08/23 05/08/23 08:40 09:38 WBC 17.5 H RBC 5.01 Hgb 14.0 Hct 41.5 MCV 82.8 MCH 27.9 MCHC 33.7 RDW Std Deviation 37.3 RDW Coeff of Sourav 12.4 Plt Count 357 MPV 11.4 Immature Gran % (Auto) 0.400 Neut % (Auto) 76.7 H Lymph % (Auto) 15.8 L Thayer % (Auto) 6.0 Eos % (Auto) 0.5 Baso % (Auto) 0.6 Absolute Neuts (auto) 13.4 H Absolute Lymphs (auto) 2.76 Nucleated RBC % 0 Sodium 137 Potassium 3.3 L Chloride 108 H Carbon Dioxide 21.0 Anion Gap 8 BUN 7 Creatinine 0.70 Estim Creat Clear Calc 116.46 Est GFR (MDRD) Af Amer 112 Est GFR (MDRD) Non-Af 93 BUN/Creatinine Ratio 10.0 Glucose 139 H Calcium 8.8 Total Bilirubin 0.60 AST 16 ALT 16 Alkaline Phosphatase 65 Total Protein 7.7 Albumin 3.1 L Globulin 4.6 H Albumin/Globulin Ratio 0.7 L Serum , Qual NEGATIVE Urine Color Yellow Urine Clarity Sl. Cloudy Urine pH 6.0 Ur Specific [place] 1.015 Urine Protein 30 H Urine Glucose (UA) Normal Urine Ketones 15 H Urine Occult Blood 25 H Urine Nitrite Negative Urine Bilirubin 1 H Urine Urobilinogen Normal Ur Leukocyte Esterase 500 H Urine RBC 0-5 SEEN Urine WBC 10-25 SEEN Ur Squamous Epith Cells 5-10 SEEN Urine Bacteria RARE Urine Mucus 1+ Radiography Diagnostic Testing: Clinical Impression(s) from Imaging Studies Abdomen/Pelvis CT 05/08/23 08:37 IMPRESSION: Acute appendicitis with inflammatory changes in the right lower quadrant. Stable eventration of the left hemidiaphragm. Fatty infiltration of the liver. Findings suggestive of a hemangioma in the right lobe of the liver. Electronically Signed: Cortez Garcia MD at 10:24 EST , Discharge Plan Triage Chief Complaint: Abd Pain ED Provider: Thien Sanchez Dx/Rx/DC Orders Clinical Impression: Abdominal pain, Acute appendicitis, Leukocytosis Prescriptions: No Action amlodipine 5 MG tablet 5 mg PO DAILY Patient Comments: PT STATES THAT SHE TAKES THIS MED AT BEDTIME drospirenone-ethinyl estradiol 1 EACH tablet 1 ea PO DAILY Patient Comments: PT STATES THAT SHE TAKES THIS MED AT BEDTIME loratadine 10 mg tablet 10 mg PO DAILY Patient Comments: PT STATES THAT SHE TAKES THIS MED AT BEDTIME omeprazole 20 mg capsule,delayed release(DR/EC) 20 mg PO DAILY Patient Comments: PT STATES THAT SHE TAKES THIS MED AT BEDTIME cholecalciferol (vitamin D3) [Vitamin D3] 25 mcg (1,000 unit) capsule 50 mcg PO DAILY Patient Comments: PT STATES THAT SHE TAKES THIS MED AT BEDTIME cyanocobalamin (vitamin B-12) [Vitamin B-12] 500 mcg tablet 1,500 mcg PO DAILY Patient Comments: PT STATES THAT SHE TAKES THIS MED AT BEDTIME Primary Care Provider: Tank Tran Referrals: Tank Tran MD [Primary Care Provider] - Disposition Disposition: Acute Care Hospital [facility]
[2023-05-08] MEDS: Ondansetron 4 MG/2 ML Vial IV (08:55)
[2023-05-08] MEDS: Morphine 4 MG/ML Syringe IV (08:55)
[2023-05-08] MEDS: 0.9% Normal Saline (1000mL) 1,000 ML 1000 ML IV (08:56)
[2023-05-08 09:13] LABS: ALB/GLOB Ratio 0.7 RATIO (0.9-2.4); AST(SGOT) 16 U/L (15-37); Alanine Aminotransfer ALT/SGPT 16 U/L (13-56); Albumin, Serum 3.1 g/dL (3.2-5.0); Alkaline Phosphatase 65 U/L (45-117); Anion Gap 8 (5-15); BUN 7 mg/dL (7-18); Calcium,Total 8.8 mg/dL (8.5-10.1); Chloride 108 mmol/L (98-107); EST Glomerular Filtration Rate 93 mL/min (>60); Est Glom Filt Rate - Afr Amer 112 mL/min (>60); Estimated Creatinine Clearance 116.46 ml/min; Globulin 4.6 g/dL (2.2-4.2); Glucose 139 mg/dL (74-106); Potassium 3.3 mmol/L (3.5-5.1); Protein, Total 7.7 g/dL (6.4-8.2); Sodium Level 137 mmol/L (136-145)
[2023-05-08 09:16] LABS: Internal QC Validated? YES +Cl - CLEAR BKGD; Pregnancy, Serum, hCG Quali. NEGATIVE Negative; Record Kit Lot#, Serum Preg. HCG0000667200
[2023-05-08 09:47] LABS: Color, Urine Yellow (Yellow); Glucose, Dipstick Normal (Normal); Ketone-Dipstick 15 mg/dl (Negative); Leukocyte Esterase-Dipstick 500 /ul (Negative); Nitrite-Dipstick Negative (Negative); Occult Blood-Urine 25 /ul (Negative); Protein-Dipstick 30 mg/dl (Negative); Specific Gravity, Urine 1.015 (1.002-1.030); Urine Clarity Sl. Cloudy (Clear); Urine Urobilinogen Normal (Normal)
[2023-05-08 10:07] LABS: Urine Bilirubin Dipstick 1 mg/dL (Negative)
[2023-05-08 10:09] LABS: Bacteria RARE /hpf (None Seen); Mucous, Urine 1+ /hpf (<or=2+); Red Blood Cells-Urine 0-5 SEEN /hpf (0-5); Squamous Epithelial Cells - UA 5-10 SEEN /hpf (5-10); White Blood Cells 10-25 SEEN /hpf (0-5)
[2023-05-08] MEDS: Piperacil/Tazobactam 4.5 GM in 0.9% Normal Saline (100mL MB+) 100 ML IV (10:46)
--- NOTE | 2023-05-08 11:06 | HP.PCM_ITS ---
HPI - General General Date of Admission: 05/08/23 Date of Service: 05/08/23 Chief Complaint: Right lower quadrant pain HPI Narrative WATSON LEE, is a 52 F who presents with a 1 day history of right lower quadrant pain. Patient noted approximately 24 hours ago that she started with some burning pain in the lower abdomen. She thought she was developing a urinary tract infection and started taking Bactrim. Patient has a history of kidney stone which present symptoms seemed different per patient. Patient notes a history of a significant paraesophageal hernia which she has been evaluated by Dr. Chakraborty previously for. She was referred to [facility] where is scheduled to have paraesophageal hernia repair with Dr. Whittaker on 06/21. Patient notes the pain became progressively worse, which she decided to seek emergency treatment. Patient denies nausea, vomiting, fever. She notes lack of appetite and last ate crackers last night. Her previous abdominal surgical history includes cholecystectomy and renal lithotripsy for kidney stones. CT scan of the ab/pel demonstrated acute appendicitis. [facility] Medical History Abdominal pain Celiac disease Environmental allergies Hiatal hernia HTN (hypertension) Left ureteral calculus Nausea Home Medications amlodipine 5 mg tablet 5 mg PO DAILY HIGH BLOOD PRESSURE 02/23/19 [History Last Taken 05/07/23] drospirenone 3 mg-ethinyl estradiol 0.03 mg tablet 1 ea PO DAILY HORMONES 02/23/19 [History Last Taken 05/07/23] cholecalciferol (vitamin D3) 25 mcg (1,000 unit) capsule (Vitamin D3) 50 mcg PO DAILY 05/08/23 [History Last Taken 05/07/23] cyanocobalamin (vitamin B-12) 500 mcg tablet (Vitamin B-12) 1,500 mcg PO DAILY supplement 05/08/23 [History Last Taken 05/07/23] loratadine 10 mg tablet 10 mg PO DAILY allergies 05/08/23 [History Last Taken 05/07/23] omeprazole 20 mg capsule,delayed release 20 mg PO DAILY acid reflux 05/08/23 [Hi story Last Taken 05/07/23] Allergy/AdvReac Type Severity Reaction Status Date / Time gluten Allergy Food Verified 05/08/23 08:28 Allergy Family History Mother Diabetes Osteoporosis CVA (cerebral vascular accident) Heart disease Hypertension Father Heart disease Surgical History History of breast surgery Hx laparoscopic cholecystectomy Social History Smoking Status: Never smoker alcohol intake: never substance use type: does not use ROS Constitutional Constitutional: Reports systems reviewed and no addt'l complaints, except as documented Eyes Eyes: Reports systems reviewed and no addt'l complaints, except as documented ENT HEENT: Reports systems reviewed and no addt'l complaints, except as documented Cardiovascular Cardiovascular: Reports systems reviewed and no addt'l complaints, except as documented Respiratory/Chest Respiratory/Chest: Reports systems reviewed and no addt'l complaints, except as documented Gastrointestinal Gastrointestinal: Reports systems reviewed and no addt'l complaints, except as documented Genitourinary Genitourinary: Reports systems reviewed and no addt'l complaints, except as documented Musculoskeletal Musculoskeletal: Reports systems reviewed and no addt'l complaints, except as documented Integumentary Integumentary: Reports systems reviewed and no addt'l complaints, except as documented Neurologic Neurologic: Reports systems reviewed and no addt'l complaints, except as documented Psychiatric Psychiatric: Reports systems reviewed and no addt'l complaints, except as documented Endocrine Endocrinology: Reports systems reviewed and no addt'l complaints, except as documented Hematologic/Lymphatic Hematologic/Lymphatic: Reports systems reviewed and no addt'l complaints, except as documented Allergic/Immunologic Allergic/Immunologic: Reports systems reviewed and no addt'l complaints, except as documented Vital Signs Vital Signs Vital Signs: 05/08/23 08:17 05/08/23 10:42 05/08/23 10:42 Temperature 98 F 98.1 F 98.4 F Temperature Source Oral Oral Pulse Rate 120 H 102 H 103 H Respiratory Rate 18 18 16 Blood Pressure 174/95 H 164/102 H 162/104 H Blood Pressure Mean 121 122 123 Blood Pressure Source Blood Pressure Position Blood Pressure Location Pulse Ox 98 98 98 Oxygen Delivery Method Room Air Room Air 05/08/23 10:47 05/08/23 10:47 Temperature 98.4 F 98.4 F Temperature Source Oral Oral Pulse Rate 104 H 104 H Respiratory Rate 16 16 Blood Pressure 162/104 H 162/104 H Blood Pressure Mean 123 123 Blood Pressure Source Monitor Blood Pressure Position Supine Blood Pressure Location Right Arm Pulse Ox 98 98 Oxygen Delivery Method Room Air Room Air Weight Weight: 228 lb 12.8 oz Body Mass Index (BMI) 35.8 Physical Exam Const alert, oriented x3 and no apparent distress HEENT normocephalic and head/scalp atraumatic Eyes PERRL Neck full ROM Lymph Lymphatic: no lymphadenopathy noted Resp normal respiratory effort and clear to auscultation bilaterally Cardio regular rhythm Rate: tachycardic GI GI Narrative: Abdomen- soft, tenderness in the right lower quadrant, obese. Positive psoas sign and obturator sign. Auscultation: hypoactive bowel sounds no CVA tenderness Back/Spine no CVA tenderness Extremity normal to inspection Skin no rashes or lesions noted Neuro no focal motor deficits and no sensory deficits noted Psych mental status grossly normal, thought process normal, cooperative and affect normal Appearance: grossly normal Results Lab / Micro Data 05/08/23 08:40 Labs: Laboratory Results - last 24 hr 05/08/23 08:40: Sodium 137, Potassium 3.3 L, Chloride 108 H, Carbon Dioxide 21.0, Anion Gap 8, BUN 7, Creatinine 0.70, Estim Creat Clear Calc 116.46, Est GFR (MDRD) Af Amer 112, Est GFR (MDRD) Non-Af 93, BUN/Creatinine Ratio 10.0, Glu cose 139 H, Calcium 8.8, Total Bilirubin 0.60, AST 16, ALT 16, Alkaline Phosphatase 65, Total Protein 7.7, Albumin 3.1 L, Globulin 4.6 H, Albumin/Globulin Ratio 0.7 L, Serum , Qual NEGATIVE 05/08/23 09:38: Urine Color Yellow, Urine Clarity Sl. Cloudy, Urine pH 6.0, Ur Specific [place] 1.015, Urine Protein 30 H, Urine Glucose (UA) Normal, Urine Ketones 15 H, Urine Occult Blood 25 H, Urine Nitrite Negative, Urine Bilirubin 1 H, Urine Urobilinogen Normal, Ur Leukocyte Esterase 500 H, Urine RBC 0-5 SEEN, Urine WBC 10-25 SEEN, Ur Squamous Epith Cells 5-10 SEEN, Urine Bacteria RARE, Urine Mucus 1+ Imagaing Radiology Impression Abdomen/Pelvis CT 05/08/23 08:37 IMPRESSION: Acute appendicitis with inflammatory changes in the right lower quadrant. Stable eventration of the left hemidiaphragm. Fatty infiltration of the liver. Findings suggestive of a hemangioma in the right lobe of the liver. Electronically Signed: Cortez Garcia MD at 10:24 EST , Assessment & Plan Assessment/Plan (1) Acute appendicitis: QUALIFIERS: Acute appendicitis type: with localized peritonitis Appendicitis gangrene presence: unspecified whether gangrene present Appendicit is perforation presence: without perforation Appendicitis abscess presence: without abscess Qualified Code(s): K35.30 - Acute appendicitis with localized peritonitis, without perforation or gangrene PLAN: I am seeing this patient in conjunction with Dr. Chakraborty. CT scan of the ab/pel demonstrate acute appendicitis. Patient presenting symptoms are consistent with acute appendicitis. Dr. Chakraborty will plan to perform a laparosc opic appendectomy. procedure details, risks and benefits have been explained to the patient. Patient verbally understands and agrees with the plan. Plan to continue IV Zosyn, IV hydration and pain control with IV medication. Patient's potassium is 3.3, plan to replace potassium prior to surgery. Hopefully patient will be discharged as an outpatient today pending OR time status. If later operation, patient will be admitted for observation. Thank you for allowing us to participate in this patient's care. Charges/Coding Visit Charges OBSV E&M: 47053 Observ/hosp same date L2
[2023-05-08 11:17] LABS: Absolute Lymphocyte Count 2.76 X10^3/uL (0.83-4.51); Absolute Neutrophil Count 13.4 X10^3/uL (2.0-7.7); Basophil% 0.6 % (0-1); Eosinophil# 0.08 X10^3/uL; Eosinophils% 0.5 % (0-5); Hematocrit 41.5 % (37-47); Lymphocyte # 2.76 X10^3/ul (0.83-4.51); Lymphocyte % 15.8 % (19-41); Mean Corp Hgb Conc 33.7 g/dL (32-36); Mean Corpuscular Hgb 27.9 pg (27.0-32.0); Mean Corpuscular Volume 82.8 fL (81-99); Mean Platelet Vol. 11.4 fl (6.2-12.0); Monocyte# 1.04 X10^3/uL; NRBC Flagged by Analyzer 0 % (0-5); Neutrophil % 76.7 % (47-70); Platelet Count 357 K/mm3 (150-450); RBC Distribution Width CV 12.4 % (11.6-14.6); RBC Distribution Width SD 37.3 fl (35.1-43.9); Red Blood Count 5.01 M/mm3 (4.2-5.4); White Blood Count 17.5 K/mm3 (4.4-11.0)
[2023-05-08] MEDS: Potassium Chloride 10mEq/100mL 10 MEQ/100 ML IV.SOLN. 100 MEQ IV BOLUS ×3 (11:31→15:16)
--- OUTSIDE RECORDS SUMMARY | 2023-05-08 12:02 | XMS RPT_ITS | CCD ---
Author Name Unknown Address [address] [place] [address] Organization [facility] Care Team Providers Care B2B Sales Manager Name Role Phone Paulie Tran MD Primary Care Provider PAULIE TRAN Primary Care UnavailCORKY Curtis Attending Unavailable Paulie Tran MD Primary Care Provider Paulie Tran MD Primary Care Provider ESTHER RUBIO Attending Unavailable PAULIE TRAN Primary Care Unavailelena e SELF, SELF Referring Unavailable AJIT WHITTAKER Attending Unavailable PAULIE TRAN Primary Care PAULIE Nieves Primary Care UnavailAJIT Aldridge Attending Unavailable AJIT WHITTAKER Admitting Unavailable Medications Current Medications Medication Drug Class(es) Dates Sig (Normalized) Sig (Original) enteric contrast (will be provided with radiology test) (2 sources) Start: 02-05-2023 End: 02-06-2023 enteric contrast (will be provided with radiology test) For CT ABD/PEL W IVCON Routine order Administer, As Directed One Time Only, via Oral, Rectal, both Oral and Rectal, Enteric Tube, Stoma or Indwelling Catheter, Enteric Contrast as designated per enteric contrast guidelines 1 Each 0 02/05/2023 02/06/2023 Active Completed/Discontinued Medications Medication Drug Class(es) Dates Sig (Normalized) Sig (Original) amLODIPine 5 mg oral tablet (4 sources) Dihydropyridine Calcium Channel [place] Start: 11-08-2022 take 1 tablet by mouth once daily at bedtime amLODIPine (NORVASC) 5 mg tablet Take 5 mg by mouth daily at bedtime. 0 11/08/2022 Active Problems Active Problems Problem Classification Problem Date Documented Date Episodic/Chronic Abdominal hernia (5 sources) Paraesophageal hernia; Translations: [Diaphragmatic hernia without obstruction or gangrene] Onset: 02-05-2023 02-05-2023 Episodic Cardiac dysrhythmias (7 sources) Palpitations; Translations: [Palpitations] 10-07-2013 Episodic Esophageal disorders (2 sources) Gastroesophageal reflux disease; Translations: [Gastro-esophageal reflux disease without esophagitis] Onset: 02-05-2023 02-05-2023 Chronic Nutritional deficiencies (2 sources) Iron deficiency; Translations: [Iron deficiency] Onset: 02-05-2023 02-05-2023 Episodic Other nutritional; endocrine; and metabolic disorders (1 source) Severe obesity; Translations: [Morbid (severe) obesity due to excess calories] 02-05-2023 Chronic Other nutritional; endocrine; and metabolic disorders (1 source) Morbid (severe) obesity due to excess calories; Translations: [Class 2 severe obesity with serious comorbidity and body mass index (BMI) of 37.0 to 37.9 in adult, unspecified obesity type] Onset: 02-05-2023 Chronic Other nutritional; endocrine; and metabolic disorders (1 source) Body mass index (BMI) 37.0-37.9, adult; Translations: [Class 2 severe obesity with serious comorbidity and body mass index (BMI) of 37.0 to 37.9 in adult, unspecified obesity type] Onset: 02-05-2023 Chronic Other screening for suspected conditions (not mental disorders or infectious disease) (1 source) Patient encounter status; Translations: [Encounter for screening mammogram for malignant neoplasm of breast] 04-09-2023 Episodic Past or Other Problems Problem Classification Problem Date Documented Da te Episodic/Chronic Hemorrhoids (7 sources) External hemorrhoids; Translations: [Residual hemorrhoidal skin tags] Onset: 09-06-2014 09-06-2014 Episodic Nonmalignant breast conditions (14 sources) Discharge from nipple; Translations: [Nipple discharge] Onset: 06-06-2010 06-06-2010 Episodic Results Test Name Value Interpretation Reference Range Facil ity Vital Signs Date Time Vital Sign Value Performing Clinician Rodrigo pérez 04-09-2023 15:18-0500 Body weight 104.1 kg Esther Rubio MD Work Phone: [facility] 04-09-2023 15:18-0500 Diastolic blood pressure 92 mm[Hg] Esther Rubio MD Work Phone: [facility] 04-09-2023 15:18-0500 Systolic blood pressure 130 mm[Hg] Esther Rubio MD Work Phone: [facility] 03-19-2023 10:45-0500 Body height 170.2 cm Ajit Whittaker MD Work Phone: [facility] 03-19-2023 10:45-0500 Body mass index (BMI) [Ratio] 36.18 kg/m2 Ajit Whittaker MD Work Phone: [facility] 03-19-2023 10:45-0500 Body weight 104.78 kg Ajit Whittaker MD Work Phone: [facility] 03-19-2023 10:45-0500 Diastolic blood pressure 90 mm[Hg] Ajit Whittaker MD Work Phone: [facility] 03-19-2023 10:45-0500 Heart rate 93 /min Ajit Whittaker MD Work Phone: [facility] 03-19-2023 10:45-0500 Systolic blood pressure 143 mm[Hg] Ajit Whittaker MD Work Phone: [facility] 02-05-2023 09:12-0400 Body height 167.6 cm Corky Pete MD Work Phone: [facility] 02-05-2023 09:12-0400 Body weight 105.69 kg Corky Pete MD Work Phone: [facility] 02-05-2023 09:12-0400 Diastolic blood pressure 66 mm[Hg] Corky Pete MD Work Phone: [facility] 02-05-2023 09:12-0400 Heart rate 92 /min Corky Pete MD Work Phone: [facility] 02-05-2023 09:12-0400 Systolic blood pressure 141 mm[Hg] Corky Pete MD Work Phone: [facility] Encounters Encounter Date Encounter Type Care Provider Facility Start: 06-21-2023 ambulatory PAULIE Douglas jose miguelty:[facility] Start: 04-09-2023 End: 04-09-2023 ambulatory ESTHER RUBIO Facility:[facility] Start: 04-09-2023 End: 04-09-2023 Patient encounter procedure Esther Rubio MD Work Phone: Obstetrics/Gynecolog y Procedures Date Procedure Procedure Detail Performing Clinician Start: 12-08-2018 Mammography Esther farrell MD Work Phone: Plan of Treatment Date Care Activity Detail Author Start: 12-20-2030 Tetanus vaccination TETANUS [facility] Start: 12-20-2030 Urine microalbumin profile DTaP,Tdap,Td Vaccine (2 - Td or Tdap) [facility] Start: 06-16-2023 HPV TESTING HPV TESTING [facility] Start: 06-16-2023 PAP TESTING PAP TESTING [facility] Start: 06-16-2023 Screening for malignant neoplasm of cervix [facility] Start: 04-18-2023 End: 02-06-2024 EGD - THERAPEUTIC, EUS, OR TUBE INTERVENTIONS EGD - THERAPEUTIC, EUS, OR TUBE INTERVENTIONS Endoscopy Routine Paraesophageal hernia Gastroesophageal reflux disease, unspecified whether esophagitis present Expected: 04/18/2023, Expires: 02/06/2024 [facility] Work Phone: Payers Date Payer Category Payer Unknown [employer] PPO OOS [id number] 2012-Present [phone] [facility] [id number] [place] [address] PPO [id number] 2012 Unknown [id number] 2012 Unknown [id number] 1970 Unknown [id number] 1970 Unknown [id number] 1970 Unknown [id number] Social History Date Type Detail Facility Start: 04-25-2011 End: 03-19-2023 Tobacco smoking status NHIS Never smoked tobacco [facility] Start: 07-12-2020 End: 04-09-2023 Alcohol intake Current non-drinker of alcohol (finding) [facility] Start: 1970 Sex Assigned At Not on file [facility] Start: 09-01-2021 End: 10-24-2021 Exposure to SARS-CoV-2 (event) Not sure [facility] Work Phone: Start: 04-25-2011 End: 03-19-2023 Tobacco use and exposure Smokeless tobacco non-user [facility] Start: 02-05-2023 End: 04-09-2023 History of Social function [facility] Start: 02-05-2023 End: 04-09-2023 Tobacco use panel [facility] National Score (1-100), lower number is lower risk 66 [facility] Start: 03-19-2023 Alcohol intake Current drinke r of alcohol (finding) [facility] Start: 03-19-2023 Alcohol Comment occasionally [facility] NEGATED: Highlighted rowStart: BARTOLOMEF History of tobacco use Passive smoker [facility] Clinical Notes 09-11-2021 to 04-09-2023 Esther Rubio MD - 04/09/2023 3:42 PM Shiela Whittaker MD - 03/19/2023 10:30 AM Shiela Whittaker MD - 03/19/2023 10:30 AM Kaycee Haji RN - 02/05/2023 9:54 AM EDT Note Date & Type Note Facility 04-09-2023 Note HNO ID: [id number] Author: Esther Rubio MD Service: ? Author Type: Physician Type: Progress Notes Filed: 04/09/2023 3:54 PM Note Text: Watson is a 52 year old who presents for an annual gynecologic exam without complaints. Postmenopausal: on OCP's with occasional spotting HRT use: Yes, as above. Last Pap: 06/19/2018 normal HPV: 06/19/2018 negative History of abnormal pap: No Last mammogram: 2019 normal History of abnormal mammogram: No OB History T1 L1 SAB0 IAB0 Ectopic0 Multiple0 Live Births1 Systems Integration Manager History LMP: 06/04/2018, Drug Induced Amenorrhea Age at Menarche: Age at First : Age at Menopause: Systems Integration Manager History Comments: Sexual Activity: Yes; Male Contraception: No contraception data on record PAST MEDICAL HISTORY Diagnosis Date Anemia Celiac disease Heart palpitations Hiatal hernia 05/27/2019 seen on imaging at [facility] PAST SURGICAL HISTORY Procedure Laterality Date BREAST BIOPSY INCISION left CHOLECYSTECTOMY 04/07/2019 LITHOTRIPSY XTRCORP SHOCK WAVE FAMILY HISTORY Problem Relation Age of Onset Coronary Artery Disease Father Diabetes Mother Stroke Mother SOCIAL HISTORY Social History Tobacco Use Smoking status: Never Smokeless tobacco: Never Substance Use Topics Alcohol use: No Drug use: No REVIEW OF SYSTEMS Abdomen: No abdominal pain, nausea, vomiting, diarrhea, or constipation. No bloating, early satiety, indigestion, or increased flatulence. Bladder: No dysuria, gross hematuria, urinary frequency, urinary urgency, or incontinence Breast: No breast lumps, nipple d/c, overlying skin changes, redness or skin retraction Allergies and current medication updated:Yes EXAM: BP 130/92 Wt 229 lb 8 oz (104.1kg) LMP 06/04/2018 GENERAL: pleasant, female in no apparent distress HEENT: Normocephalic, atraumatic, mucus membranes moist, and no lesions NECK: Supple, full range of motion, no adenopathy, and thyroid normal DERMATOLOGY: Normal, without lesions, non-icteric, and non-hirsute BREAST: soft, non-tender, symmetric, no dominant mass, normal nipple-areolar complex, no lymphadenopathy, and no nipple discharge CHEST: Clear to auscultation, Normal inspiratory effort, Regular rate and rhythm, No murmurs, clicks, rubs or gallops, and decreased left lung sounds ABDOMEN: soft, non-tender, no masses, and no hepatosplenomegaly PELVIC: external genitalia normal, normal Bartholin's glands, urethra, [place]'s glands, no vulvar lesions, no cervical lesions, good vaginal support, physiologic discharge present, normal appearing perineal body and perianal region, urethral caruncle, cervix slightly friable BIMANUAL: uterus normal size, shape and consistency, midposition, no adnexal masses, and non-tender RECTOVAGINAL: deferred. NEURO: alert and oriented x3,exam grossly non-focal EXTREMITIES: normal ASSESSMENT/PLAN: 1) Health maintenance: Pap done with HPV. Mammogram ordered 2) Follow up one year or sooner as needed Esther Rubio MD [facility] 04-09-2023 History of Present illness Narrative Watson is a 52 year old who presents for an annual gynecologic exam without complaints. Postmenopausal: on OCP's with occasional spotting HRT use: Yes, as above. Last Pap: 06/19/2018 normal HPV: 06/19/2018 negative History of abnormal pap: No Last mammogram: 2019 normal History of abnormal mammogram: No OB History T1 L1 SAB0 IAB0 Ectopic0 Multiple0 Live Births1 Systems Integration Manager History LMP: 06/04/2018, Drug Induced Amenorrhea Age at Menarche: Age at First : Age at Menopause: Systems Integration Manager History Comments: Sexual Activity: Yes; Male Contraception: No contraception data on record PAST MEDICAL HISTORY Diagnosis Date Anemia Celiac disease Heart palpitations Hiatal hernia 05/27/2019 seen on imaging at [facility] PAST SURGICAL HISTORY Procedure Laterality Date BREAST BIOPSY INCISION left CHOLECYSTECTOMY 04/07/2019 LITHOTRIPSY XTRCORP SHOCK WAVE FAMILY HISTORY Problem Relation Age of Onset Coronary Artery Disease Father Diabetes Mother Stroke Mother SOCIAL HISTORY Social History Tobacco Use Smoking status: Never Smokeless tobacco: Never Substance Use Topics Alcohol use: No Drug use: No REVIEW OF SYSTEMS Abdomen: No abdominal pain, nausea, vomiting, diarrhea, or constipation. No bloating, early satiety, indigestion, or increased flatulence. Bladder: No dysuria, gross hematuria, urinary frequency, urinary urgency, or incontinence Breast: No breast lumps, nipple d/c, overlying skin changes, redness or skin retraction Allergies and current medication updated:Yes EXAM: BP 130/92 Wt 229 lb 8 oz (104.1kg) LMP 06/04/2018 GENERAL: pleasant, female in no apparent distress HEENT: Normocephalic, atraumatic, mucus membranes moist, and no lesions NECK: Supple, full range of motion, no adenopathy, and thyroid normal DERMATOLOGY: Normal, without lesions, non-icteric, and non-hirsute BREAST: soft, non-tender, symmetric, no dominant mass, normal nipple-areolar complex, no lymphadenopathy, and no nipple discharge CHEST: Clear to auscultation, Normal inspiratory effort, Regular rate and rhythm, No murmurs, clicks, rubs or gallops, and decreased left lung sounds ABDOMEN: soft, non-tender, no masses, and no hepatosplenomegaly PELVIC: external genitalia normal, normal Bartholin's glands, urethra, [place]'s glands, no vulvar lesions, no cervical lesions, good vaginal support, physiologic discharge present, normal appearing perineal body and perianal region, urethral caruncle, cervix slightly friable BIMANUAL: uterus normal size, shape and consistency, midposition, no adnexal masses, and non-tender RECTOVAGINAL: deferred. NEURO: alert and oriented x3,exam grossly non-focal EXTREMITIES: normal ASSESSMENT/PLAN: 1) Health maintenance: Pap done with HPV. Mammogram ordered 2) Follow up one year or sooner as needed Esther Rubio MD documented in this encounter [facility] 03-19-2023 History and physical note Images from the original note were not included. +++++++++++++++++++++++++++++++++ ++++++++++++++++++++++++ HPI +++++++++++++++++++++++++++++++++ ++++++++++++++++++++++++ Ms. Mcelroy is a 52 y.o. who is being evaluated for a large hiatal hernia. This contains colon and the entirety of her stomach. She also has a history of celiac disease which is well managed. She has a previous history of cholecystectomy. She notes she will have some component of chest pain which has been thoroughly ruled out as cardiac in nature. has a current medication list which includes the following prescription(s): amlodipine, cyanocobalamin, loratadine, and omeprazole. Allergies - None PMH - Celiac Disease, HTN PSH- Cholecystectomy, Kidney Stones, Lumpectomy FH - Denies pertinent past surgical history. reports that she has never smoked. She has never been exposed to tobacco smoke. She has never used smokeless tobacco. She reports current alcohol use. She reports that she does not use drugs. I have reviewed the patient's medical history in detail and updated the computerized patient record. +++++++++++++++++++++++++++++++++ ++++++++++++++++++++++++ REVIEW OF SYSTEMS +++++++++++++++++++++++++++++++++ ++++++++++++++++++++++++ Constitutional: She is well-developed, well-nourished, and in no distress. Normal Mood/Affect Normal Orientation X 3 SKIN > > > >Denies recent skin changes CONSTITUTIONAL > >Denies abnormal weight gain or weight loss. EYES > > > >Denies recent eyesight changes. HEENT > > > >Normal CARDIOVASCULAR > >Denies chest pain. RESPIRATORY > > >Notes SOB. GASTROINTESTINAL > >Note issues with ERNESTO > > > >Normal INTEGUMENTARY > >Normal MUSCULOSKELETAL > >Denies abnormal muscle aches or pains. NEUROLOGICAL > > >Denies numbness / tingling in hands / feet. HEMAT/LYMPH > > >Denies easy bruising. ALL/IMMUN > > >Normal PSYCHIATRIC > > >Normal ENDOCRINE > > >Denies DM Type II. ALL OTHERS > > >Normal +++++++++++++++++++++++++++++++++ ++++++++++++++++++++++++ PHYSICAL EXAM +++++++++++++++++++++++++++++++++ ++++++++++++++++++++++++ BP 143/90 Pulse 93 Ht 1.702 m (5' 7 ) Wt 104.8 kg (231 lb) BMI 36.18 kg/m Smoking Status Never Body mass index is 36.18 kg/m . GENERAL Ms. Mcelroy is a well nourished and healthy appearing in no acute distress. EYES PERRLA > > > > >Normal EOMI > > > > >Normal HEENT External Ears and Nose > > >Normal NECK No masses, symmetry, no crepitus >Normal RESPIRATORY Respiratory Effort > > > >Normal Auscultation > > > >CTA B No W/R/R CARDIOVASCULAR Palpitation > > > > >Normal Ausculation shows no MRG > >RRR No M/C/R/G CCE > > > > >Normal ABDOMEN Masses or Tenderness > > >+BS, Soft, Obese, NTTP Hepatosplenomegaly > >No Hernias > > > > >None on exam. MUSCULOSKELETAL Gait and Station > > > >Ambulates normally in clinic. SKIN Inspection and Palpitation > > >Normal NEUROLOGIC Cranial Nerves 1-12 > > >Normal Sensory Exam > > > >Normal PSYCHIATRIC Alert > > > > >Normal Oriented to person, time and place >Normal ASSESSMENT DIAGNOSIS: ICD-10-CM 1. Paraesophageal hernia K44.9 PLAN I recommend proceeding with Robotic Paraesophageal Hernia Repair and Toupet Fundoplication. Treatment alternatives were discussed. Discussed aspects of surgical intervention, methods, risks (including by not limited to infection, bleeding, hematoma, and perforation of the intestings or solid organs), benefits, alternatives and the risks of general anesthetic including MD, CVA, sudden or even reaction to anesthetic medications. The patient understands the risks, any and all questions were answered to the patient's satisfaction. Patient does wish to proceed with surgery. Written consent was obtained. Electronically Signed By: Ajit Whittaker MD, TERESA, FACS Pager [phone] pug mill operator helper [facility], Division of General & Gastrointestinal Surgery 11th Floor [place], [address] [place] [id number] Office / [phone] [place] / [phone] Fax [email or web address] 03/19/2023 11:42 AM [facility] 03-19-2023 History and physical note Images from the original note were not included. +++++++++++++++++++++++++++++++++ ++++++++++++++++++++++++ HPI +++++++++++++++++++++++++++++++++ ++++++++++++++++++++++++ Ms. Mcelroy is a 52 y.o. who is being evaluated for a large hiatal hernia. This contains colon and the entirety of her stomach. She also has a history of celiac disease which is well managed. She has a previous history of cholecystectomy. She notes she will have some component of chest pain which has been thoroughly ruled out as cardiac in nature. has a current medication list which includes the following prescription(s): amlodipine, cyanocobalamin, loratadine, and omeprazole. Allergies - None PMH - Celiac Disease, HTN PSH- Cholecystectomy, Kidney Stones, Lumpectomy FH - Denies pertinent past surgical history. reports that she has never smoked. She has never been exposed to tobacco smoke. She has never used smokeless tobacco. She reports current alcohol use. She reports that she does not use drugs. I have reviewed the patient's medical history in detail and updated the computerized patient record. +++++++++++++++++++++++++++++++++ ++++++++++++++++++++++++ REVIEW OF SYSTEMS +++++++++++++++++++++++++++++++++ ++++++++++++++++++++++++ Constitutional: She is well-developed, well-nourished, and in no distress. Normal Mood/Affect Normal Orientation X 3 SKIN > > > >Denies recent skin changes CONSTITUTIONAL > >Denies abnormal weight gain or weight loss. EYES > > > >Denies recent eyesight changes. HEENT > > > >Normal CARDIOVASCULAR > >Denies chest pain. RESPIRATORY > > >Notes SOB. GASTROINTESTINAL > >Note issues with ERNESTO > > > >Normal INTEGUMENTARY > >Normal MUSCULOSKELETAL > >Denies abnormal muscle aches or pains. NEUROLOGICAL > > >Denies numbness / tingling in hands / feet. HEMAT/LYMPH > > >Denies easy bruising. ALL/IMMUN > > >Normal PSYCHIATRIC > > >Normal ENDOCRINE > > >Denies DM Type II. ALL OTHERS > > >Normal +++++++++++++++++++++++++++++++++ ++++++++++++++++++++++++ PHYSICAL EXAM +++++++++++++++++++++++++++++++++ ++++++++++++++++++++++++ BP 143/90 Pulse 93 Ht 1.702 m (5' 7 ) Wt 104.8 kg (231 lb) BMI 36.18 kg/m Smoking Status Never Body mass index is 36.18 kg/m . [facility] Ms. Mcelroy is a well nourished and healthy appearing in no acute distress. EYES PERRLA > > > > >Normal EOMI > > > > >Normal HEENT External Ears and Nose > > >Normal NECK No masses, symmetry, no crepitus >Normal RESPIRATORY Respiratory Effort > > > >Normal Auscultation > > > >CTA B No W/R/R CARDIOVASCULAR Palpitation > > > > >Normal Ausculation shows no MRG > >RRR No M/C/R/G CCE > > > > >Normal ABDOMEN Masses or Tenderness > > >+BS, Soft, Obese, NTTP Hepatosplenomegaly > >No Hernias > > > > >None on exam. MUSCULOSKELETAL Gait and Station > > > >Ambulates normally in clinic. SKIN Inspection and Palpitation > > >Normal NEUROLOGIC Cranial Nerves 1-12 > > >Normal Sensory Exam > > > >Normal PSYCHIATRIC Alert > > > > >Normal Oriented to person, time and place >Normal ASSESSMENT DIAGNOSIS: ICD-10-CM 1. Paraesophageal hernia K44.9 PLAN I recommend proceeding with Robotic Paraesophageal Hernia Repair and Toupet Fundoplication. Treatment alternatives were discussed. Discussed aspects of surgical intervention, methods, risks (including by not limited to infection, bleeding, hematoma, and perforation of the intestings or solid organs), benefits, alternatives and the risks of general anesthetic including MD, CVA, sudden or even reaction to anesthetic medications. The patient understands the risks, any and all questions were answered to the patient's satisfaction. Patient does wish to proceed with surgery. Written consent was obtained. Electronically Signed By: Ajit Whittaker MD, TERESA, FACS Pager [phone] pug mill operator helper [facility], Division of General & Gastrointestinal Surgery 11th Floor [place], [address] [facility] [address], [place] [address] Office / [phone] Mobile / [phone] Fax [email or web address] 03/19/2023 11:42 AM documented in this encounter [facility] 03-19-2023 Instructions Shana Roman 03/19/2023 10:30 AM EST Images from the original note were not included. If the cryptographic center specialist doesn't contact you by tomorrow. Please call our office and ask to speak to the neurosurgery research director @[phone] . .BEFORE SURGERY: Preadmission Testing (IN PERSON) Date: Arrival Time: PRE-PROCEDURE PREPARATION (COMPAC) (PHONE CALL) Date: Call Time: == this call must be completed before having surgery == DAY OF SURGERY: SURGERY SCHEDULE : Your surgery is scheduled on The location: If you have any questions about your surgery, medicines, transportation or other issues, or need to cancel or reschedule, please call the surgery location at the number listed. If you need to reschedule please call [phone] If you would like to sign up for text messages for [facility] appointment reminders text [facility] TO [phone]. You will receive a response within a few minutes after sending to verify [facility] paperwork can be faxed to [phone] If you would like to sign up for text messages for [facility] appointment reminders text [facility] TO [phone]. You will receive a response within a few minutes after sending to verify BEFORE SURGERY: PRE-PROCEDURE PREPARATION (COMPAC) (PHONE CALL) Patients who are scheduled for a surgical or other procedure at [facility] may be required to complete a pre-operative phone call. A nurse will collect information about your health, fitness, previous operations, allergies and more. This helps prepare the surgeon, the anesthesiologist and you by identifying any potential anesthetic, surgical or post-operative complications. If applicable, you may be referred to undergo an electrocardiogram (ECG), blood or urine tests or other tests. You will also receive pre- and post-surgery instructions to help ensure you are completely informed about what to expect. PREADMISSION TESTING (IN PERSON) Your physician has chosen to send you to have your preoperative testing completed. This could include tests and assessments such as: Medical history and physical examination EKG Blood testing Medication documentation Chest x-rays Referrals for other diagnostic testing The OPAC is a single site that will help coordinate your preoperative needs and provide you with the information and education you need prior to your surgery. Please allow 2 hours for your OPAC appointment. Preparing for Your Visit Please bring the following items to your appointment: -A list of medications including the name, dosage and how often you take each medication (you may also bring the bottles, with labels intact) -Your insurance card and identification including your social security number or medical record number. -Your insurance co-payment if required by your insurance -Previous tests and radiology reports (if you have them) -Names, addresses and phone numbers of other doctors who are treating you or referred you -Personal health information including dates when events occurred and any allergies you may have to medications -Family health history information listing significant conditions that affected family members directly related to you -A list of questions or concerns you may want to discuss with the doctor or nurse [facility] doctors and staff are educators who teach others about health and medical procedures. We are happy to talk with you so that you can fully understand your condition and can be an active participant in your journey to better health. We look forward to serving you. Please don t hesitate to ask any questions. DAY OF SURGERY: You will be receiving an automated call 2 days prior to the surgery with pertinent information you will need regarding your procedure. It will be confirming your surgery and arrival time as well. If you do not receive this call please call [phone] CURRENT COVID VISITOR POLICY: These visitor policy changes for hospital inpatients only are effective 06/22: 1. Hospital inpatients, including COVID-19 positive and suspected patients, can have two named visitors of the patient s choice per day as identified in the patient s electronic medical record. 2. Visitors are required to wear a wristband or visitor badge with the date and visitor s name. 3. Visitation is permitted between 8 a.m. to 7 p.m., seven days a week. 4. Visitors must have no COVID-19 symptoms or recently known exposures. 5. Visitors must have no COVID-19 symptoms or recent known exposures and adhere to these protocols: 6. Show a government-issued photo ID upon arrival. 7. Wear a hospital-provided mask over nose AND mouth at all times in all health care settings, including the patient's room, regardless of vaccination status. 8. Practice good hand hygiene. 9. Existing visitor exceptions remain in place for: 10. Emergency departments 11. Surgery/Procedures 12. End of life/Goals of care 13. Outpatient obstetrics 14. Maternity YOU WILL RECEIVE A CALL TWO DAYS BEFORE SURGERY CONFIRMING YOUR SURGERY AND ARRIVAL TIME. PLEASE CALL [phone] IF YOU DO NOT RECEIVE A CALL. NOTHING TO EAT OR DRINK AFTER MIDNIGHT. PLEASE HAVE YOUR TRANSPORTATION AVAILABLE AT ANY TIME. Arrange to have an adult to drive you to the hospital and be there to take you home after the surgery. If you are taking a cab, bus or medical transportation service home, an adult, other than the local delivery driver, needs to ride with you for your safety. This person will also be responsible for communicating post-operative instructions to you. If you have any forms that will need to be completed by the surgeon, please remember to bring these with you when you come for office visits. You will need to have the patient portion completed before the Physician/office can complete & sign the form. Forms will be completed within 7-10 business days. Getting Your Skin Ready for Surgery You are scheduled to have a surgery that involves cutting through the skin. Because germs live on everyone's skin, there is a greater chance of getting an infection. To lessen your chance of getting an infection, you need to take special care of your skin before the surgery. Follow These Instructions: You may be given or you will need to buy a special soap called 4% chlorhexidine gluconate or CHG. Common brand names for this soap are Hex-A-Clens or Hibiclens. You will need 2 of the 4-ounce bottles or Hibiclens Foam wash. There may be a store brand that is less costly. Ask your pharmacist where to find it in the drug store. It is often with first aid supplies. You may want to call ahead to check that they have the CHG soap in the store. Do not shave near the site where your doctor will be making the cut for your surgery for at least 48 hours before surgery. You need to shower with the CHG soap two times before your surgery within 48 hours Cleaning Your Skin with CHG * 1. Start by washing your hair as usual with your normal shampoo and wash your body with regular soap. Rinse your hair and body very well to remove any shampoo or soap that might be on your skin. 2. Wet a clean washcloth and turn off the shower. 3. Put the CHG soap on the wet clean washcloth. 4. Apply the CHG soap to your whole body from the neck down only. Do not use CHG soap on your face and be careful not to get the CHG in your eyes or ears. CHG soap does not lather well. Put more CHG on the cloth as you cover more of your body. You should use about 4 ounces or 1/2 cup of CHG with each shower. Note: If you are using the Hibiclens (chlorhexidine) Foam wash, then apply 3 pumps of wash directly onto your skin and lather your body from the neck down. 5. Wash your body gently for 5 minutes, paying special attention to the part on your body where the surgery will be done. Be sure to wash the back of your neck, under your arms, your belly button, private parts and your legs down to your toes. Do not scrub too hard. 6. Turn the shower back on and rinse well to get the CHG soap off your body. 7. Pat yourself dry with a clean, dry towel. 8. Do not use any lotions, moisturizer, make-up or other products on the skin near the part of your body that will be cut for surgery. 9. Put on clean clothes. *Special Notes If you do not have a shower or you are not able to get into the shower, do a sponge bath each time. Do not wash your hair unless you are to have a cut into your scalp. First, bathe with a washcloth and regular soap. Rinse with clean water. Then get a clean washcloth and use the CHG to wash your body. Rinse with another clean washcloth and plain water. Dry with a clean towel. If you have any questions about cleaning your skin, call your doctor s office. Medicines to prevent blood clots If you are taking aspirin to prevent blood clots because you have a stent, or you have had a heart attack or stroke, continue to take your aspirin up to, and even on the day of a surgery . If you have a stent, read the Protect Your Stent handout to learn more. The medicines listed below thin the blood to prevent blood clots. Taking them decreases the chance of heart attack, stroke and blood clots. However, taking them before a surgery can also increase the chance of bleeding. Apixiban (Eliquis) Clopidogrel (Plavix) Dabigatran (Pradaxa) Dalteparin (Fragmin) Enoxaparin (Lovenox) Fondaparinux (Arixtra) Prasugrel (Effient) Rivaroxaban (Xarelto) Ticagrelor (Brilinta) Ticlopidine (Ticlid) Warfarin (Coumadin) As soon as you know about a planned surgery: 1. Tell your surgeon about the medicine you take to prevent blood clots. 2. Also, talk with the doctor who prescribes your medicine to prevent clots. He or she can tell you how to adjust your medicine around the time of your surgery. 3. If your surgery date is changed and you stopped taking your medicine to prevent clots, call your doctor. You may need to restart the medicine while you are waiting for your surgery to be rescheduled. What to do about your medicines before surgery Please call your doctor's office if you have any questions about your regular medicines. Some medicines need to be stopped for a time before your surgery to prevent problems. Use this list as a guide. If you are not sure which medicines you should stop before your surgery, ask your doctor to be sure. Follow the directions of your doctor. All herbal medicines should be stopped 14 days before surgery. Monamine oxidase inhibitors should be stopped 7 to 14 days before surgery. These include drugs such as Nardil (Phenelzine Sulfate), Parnate (Tranylcypromine Sulfate), Eldepryl (Seleqiline Hydrochloride). Glucophage (Metformin) should be stopped 48 hours before surgery. Do not take these kinds of medicines the morning of surgery: Metformin should be stopped 48 hours prior to surgery Insulin or oral diabetes medicines - Please check your blood sugar the morning of surgery if you have diabetes. Diuretics (water pills) GOPI Inhibitors for blood pressure Digoxin unless used for irregular heartbeat, such as atrial fibrillation Take these medicines the morning of surgery with a sip of water: All heart medicines All blood pressure medicine, except diuretics (water pills) and GOPI inhibitors All breathing medicines, including inhalers All anti-seizure medicine All heartburn or gastric reflux medicine, except antacids such as Maalox or Mylanta Pain medicine, prescribed to you by a doctor, if in severe pain Steroid medicine Antidepressant medicines, except monamine oxidase inhibitors such as Nardil (Phenelzine Sulfate), Parnate (Tranylcypromine Sulfate), and Eldepryl (Seleqiline Hydrochloride) After midnight and on the day of your surgery: Do not eat or drink anything. Do not chew gum or take breath mints. Do not smoke anything. Do brush your teeth and rinse your mouth, but do not swallow anything. What to Bring to the hospital A photo identification, such as a local delivery driver's license Insurance card Co-pay for insurance if applicable A list of all medicines you are currently taking including the dose and times that you take them. Include any vitamins, over the counter and herbal products you take. You will be turning this list over to your nurse. Crutches or walker if needed. Dentures, glasses and hearing aids may be worn, just bring a case for them. An adult who will be able to take you home after the procedure since you will not be able to leave alone. You are required to have a responsible adult who can stay at the hospital while you are here, listen to discharge instructions, and stay with you for 24 hours after transporting you home. What to Leave at Home All valuables, cell phone, wallet, purse. Bring your co-pay if your insurance requires one. All jewelry such as watches, wedding bands and any form of piercing. Do not wear makeup, nail italian, contact lenses, perfume or cologne. If you develop any illness, such as a cold, sore throat, cough, or fever, before your surgery, call our office at [phone] and ask to speak with a nurse. Financial Obligation: Your insurance many require an authorization prior to the procedure. Our pre-cert office will be contacting your insurance to see if authorization is required. If you have questions about how much your insurance will pay, please contact your insurance directly. Please be prepared to pay your co-pay, co-insurance, or deductible on the day of your surgery. We request patients with insurance that is less than 100% coverage to pay a deposit prior to the procedure being performed. A pharmaceutical sales representative from the [facility] will contact you to pre-register you for your services. If you have not received a call by two days prior to your procedure date, please call our Pre-Registration Department at [phone] or [phone]. By calling us in advance, your wait time will be reduced. Our trained representatives can assist you in discussing both your physician and hospital obligations. Are you a yetu user? If yes, you can log on and complete a pre-registration questionnaire. Test Fixture Designer: You are not eligible for Financial Assistance if you are entering the [facility] solely to seek medical treatment. We want to make sure all patients have access to quality healthcare services at [facility], and we are committed to working with you and your family to obtain appropriate financial assistance. We are here to help. Please let us know if you do not have health insurance or cannot pay your bill in full. We encourage you to contact our Office of Financial Counseling, where staff members are trained to assist you in determining whether you might qualify for an assistance program. Our financial counselors can help you complete applications for government-sponsored programs, describe other financial assistance programs that can help offset costs, or structure workable payment plans for your required medical treatment if you meet certain financial criteria. They can also assist you in explaining your options related to the Affordable Care Act. These options include helping you apply for: [place] Medicaid (if your income meets guidelines) The Affordable Care Act Insurance Exchange Program. Other federal/state assistance programs Or establish a payment plan Other Assistance: [facility] offers an additional sliding scale financial assistance based on Federal Poverty Guidelines. To help determine the appropriate assistance programs for you, you will need to provide details about your job, income, resources, insurance coverage, family size and other information. We realize some of these details may be of a sensitive nature, but it is necessary that you provide them to enable us to help you. We are committed to respecting you and your privacy during this process. If you are uninsured but do not qualify for Medicaid or other assistance programs, our Financial Counselors will be happy to discuss the Affordable Care Act Insurance Exchange programs. If you are interested in learning more about these programs, please contact the Financial Counseling Department at [phone] between 8 a.m. and 5 p.m. week. A financial counselor can assist you with the application process. You will be screened for all potential programs. If you appear to be eligible for Medicaid, you will be assisted through the application process. As a Medicaid recipient, your physician fees and facility fees could be covered. Services not covered by [facility] financial assistance program: Physician Fees Transportation fees Dental Services Medically unnecessary services Prescriptions Durable Medical Equipment We Are 100% Tobacco-Free At [facility], we care about the health of our patients, visitors and staff. That s why all of our locations - inside and outside - are 100% tobacco-free. We understand that nicotine is addictive, and we regret the inconvenience to tobacco users. However, as an [facility] with leading cancer and [facility] hospitals, creating a healthy environment for everyone who attends, works and visits our [facility] is important. documented in this encounter [facility] 02-05-2023 Miscellaneous Notes Manometry scheduled for 04/18/2023 at 2:00 pm followed by EGD/Du at 3:00 pm. Prep/instructions given to patient at checkout. Anju Wong MA documented in this encounter [facility] 02-05-2023 Note HNO ID: [id number] Author: Kaycee Nicholson RN Service: ? Author Type: Nurse Clinician Type: Progress Notes Filed: 02/05/2023 9:57 AM Note Text: Patient given written information about esophageal manometry and the prep instructions. I verbally discussed and reviewed the information with the patient. All of patient's questions were answered. Patient given written information about EGD AND Du pH probe and the prep instructions. Verbally discussed and reviewed the information with the patient. All of patient's questions were answered. Kaycee Nicholson RN [facility] 02-05-2023 Miscellaneous Notes Addended by: ANJU WONG on: 02/05/2023 11:45 AM Modules accepted: Orders documented in this encounter [facility] 02-05-2023 Note HNO ID: [id number] Author: Corky Pete MD Service: ? Author Type: Physician Type: Progress Notes Filed: 02/05/2023 9:49 AM Note Text: SURGICAL SERVICES HISTORY AND PHYSICAL EXAMINATION SERVICE DATE: 02/05/2023 SERVICE TIME: 9:15 AM PRIMARY CARE PHYSICIAN: Paulie Tran MD SUBJECTIVE CHIEF COMPLAINT: heartburn HISTORY OF PRESENT ILLNESS: Ms. Mcelroy is a 52 year old female with a PMH of anemia, celiac disease, heart palpitations (6 yrs ago; off of all medications), HTN (on amlodipine), and hiatal hernia who presents for surgical evaluation of hiatal hernia and heartburn. Surgical consultation was requested by the patient's referring physician, Dr. Tran. A copy of this consultation note will be provided to the requesting physician(s) by way of shared medical record or letter via [place] mail. Today she endorses ongoing daily symptoms of chronic belching, early satiety, chest pain after eating. She denies traditional symptoms of heartburn and does not take any medications for reflux. She has modified her diet. She did not follow up greater than 3 years ago due to COVID and other life occurences. I did see her greater than 3 years ago and she never followed up after that visit for any testing or follow up. Per that clinic visit: 15-20 years ago she struggled with severe heartburn and was diagnosed with hiatal hernia at the same time as being diagnosed with Celiac's disease. After changing her diet to gluten free she experienced no further symptoms of heartburn. Then in January of 2019 she experienced an episode of kidney stones. The CT scan obtained at that time demonstrated kidney stones, gallstones, and a large hiatal hernia. She underwent kidney stone extraction (cystoscopy, 02/2019), cardiac workup due to neck/left shoulder pain (02/2019), and eventual cholecystectomy (04/07/19). After all of this work up she was told that her continued symptoms of shortness of breath (even after taking one set of stairs) was secondary to her very large hiatal hernia. She also endorses that walking is difficult for her. Bending over is also very difficult for her - causes more severe shortness of breath. She has noticed that she eats small portion sizes as she experiences early satiety and experiences pain/discomfort if she eats too much. She denies use of tobacco products or illicit drugs; she drinks about one-two alcoholic beverages per month. She is taking oral control to eliminate mensuration. She has been taking iron supplements for 10 years - this has been attributed to celiac's disease. She had a colonoscopy in 2004; this was negative for cause of anemia. PSHx: lithotripsy, breast Bx, CCx PAST MEDICAL HISTORY: PAST MEDICAL HISTORY Diagnosis Date Anemia Celiac disease Heart palpitations Hiatal hernia 05/27/2019 seen on imaging at [facility] PAST SURGICAL HISTORY: PAST SURGICAL HISTORY Procedure Laterality Date BREAST BIOPSY INCISION left CHOLECYSTECTOMY 04/07/2019 LITHOTRIPSY XTRCORP SHOCK WAVE FAMILY HISTORY: FAMILY HISTORY Problem Relation Age of Onset Diabetes Mother Stroke Mother Coronary Artery Disease Father SOCIAL HISTORY: Social History Tobacco Use Smoking status: Never Smokeless tobacco: Never Substance Use Topics Alcohol use: No Drug use: No MEDICATIONS: Current Outpatient Medications Medication Sig Drospirenone-Ethinyl Estradiol (OCELLA) 3-0.03 mg per tablet Take 1 tablet by mouth once daily. New pack every 21 days. AMLODIPINE BENZOATE ORAL Take by mouth once daily. (Patient not taking: Reported on 10/24/2021 ) AMLODIPINE BESYLATE, BULK, MISC 5 mg once daily. Ferrous Gluconate 324 mg (36 mg iron) tab Take by mouth twice daily. (Patient not taking: Reported on 10/24/2021 ) Omeprazole 40 mg ORAL capsule takes one tab daily. fexofenadine 180 mg ORAL tablet takes one tab daily. PSYLLIUM SEED/SUCROSE (METAMUCIL ORAL) takes one packet daily. No current facility-administered medications for this visit. ALLERGIES: ALLERGIES No Known Allergies COMPLETE REVIEW OF SYSTEMS: Review of Systems Constitutional: Negative for chills, diaphoresis, fever and malaise/fatigue. HENT: Negative for congestion, hearing loss, nosebleeds, sinus pain, sore throat and tinnitus. Eyes: Negative for blurred vision, double vision, pain and redness. Respiratory: Positive for shortness of breath. Negative for cough, hemoptysis, sputum production and wheezing. Cardiovascular: Negative for chest pain, palpitations, orthopnea, leg swelling and PND. Gastrointestinal: Negative for abdominal pain, blood in stool, constipation, diarrhea, nausea and vomiting. Genitourinary: Negative for dysuria, frequency, hematuria and urgency. Musculoskeletal: Positive for neck pain. Negative for back pain, falls, joint pain and myalgias. Skin: Negative for itching and rash. Neurological: Negative for dizziness, speech (more content not included)... [facility] 02-05-2023 History of Present illness Narrative Patient given written information about esophageal manometry and the prep instructions. I verbally discussed and reviewed the information with the patient. All of patient's questions were answered. Patient given written information about EGD & Du pH probe and the prep instructions. Verbally discussed and reviewed the information with the patient. All of patient's questions were answered. Kaycee Nicholson RN SURGICAL SERVICES HISTORY AND PHYSICAL EXAMINATION SERVICE DATE: 02/05/2023 SERVICE TIME: 9:15 AM PRIMARY CARE PHYSICIAN: Paulie Tran MD SUBJECTIVE CHIEF COMPLAINT: heartburn HISTORY OF PRESENT ILLNESS: Ms. Mcelroy is a 52 year old female with a PMH of anemia, celiac disease, heart palpitations (6 yrs ago; off of all medications), HTN (on amlodipine), and hiatal hernia who presents for surgical evaluation of hiatal hernia and heartburn. Surgical consultation was requested by the patient's referring physician, Dr. Tran. A copy of this consultation note will be provided to the requesting physician(s) by way of shared medical record or letter via [place] mail. Today she endorses ongoing daily symptoms of chronic belching, early satiety, chest pain after eating. She denies traditional symptoms of heartburn and does not take any medications for reflux. She has modified her diet. She did not follow up greater than 3 years ago due to COVID and other life occurences. I did see her greater than 3 years ago and she never followed up after that visit for any testing or follow up. Per that clinic visit: 15-20 years ago she struggled with severe heartburn and was diagnosed with hiatal hernia at the same time as being diagnosed with Celiac's disease. After changing her diet to gluten free she experienced no further symptoms of heartburn. Then in January of 2019 she experienced an episode of kidney stones. The CT scan obtained at that time demonstrated kidney stones, gallstones, and a large hiatal hernia. She underwent kidney stone extraction (cystoscopy, 02/2019), cardiac workup due to neck/left shoulder pain (02/2019), and eventual cholecystectomy (04/07/19). After all of this work up she was told that her continued symptoms of shortness of breath (even after taking one set of stairs) was secondary to her very large hiatal hernia. She also endorses that walking is difficult for her. Bending over is also very difficult for her - causes more severe shortness of breath. She has noticed that she eats small portion sizes as she experiences early satiety and experiences pain/discomfort if she eats too much. She denies use of tobacco products or illicit drugs; she drinks about one-two alcoholic beverages per month. She is taking oral control to eliminate mensuration. She has been taking iron supplements for 10 years - this has been attributed to celiac's disease. She had a colonoscopy in 2004; this was negative for cause of anemia. PSHx: lithotripsy, breast Bx, CCx PAST MEDICAL HISTORY: PAST MEDICAL HISTORY Diagnosis Date Anemia Celiac disease Heart palpitations Hiatal hernia 05/27/2019 seen on imaging at [facility] PAST SURGICAL HISTORY: PAST SURGICAL HISTORY Procedure Laterality Date BREAST BIOPSY INCISION left CHOLECYSTECTOMY 04/07/2019 LITHOTRIPSY XTRCORP SHOCK WAVE FAMILY HISTORY: FAMILY HISTORY Problem Relation Age of Onset Diabetes Mother Stroke Mother Coronary Artery Disease Father SOCIAL HISTORY: Social History Tobacco Use Smoking status: Never Smokeless tobacco: Never Substance Use Topics Alcohol use: No Drug use: No MEDICATIONS: Current Outpatient Medications Medication Sig Drospirenone-Ethinyl Estradiol (OCELLA) 3-0.03 mg per tablet Take 1 tablet by mouth once daily. New pack every 21 days. AMLODIPINE BENZOATE ORAL Take by mouth once daily. (Patient not taking: Reported on 10/24/2021 ) AMLODIPINE BESYLATE, BULK, MISC 5 mg once daily. Ferrous Gluconate 324 mg (36 mg iron) tab Take by mouth twice daily. (Patient not taking: Reported on 10/24/2021 ) Omeprazole 40 mg ORAL capsule takes one tab daily. fexofenadine 180 mg ORAL tablet takes one tab daily. PSYLLIUM SEED/SUCROSE (METAMUCIL ORAL) takes one packet daily. No current facility-administered medications for this visit. ALLERGIES: ALLERGIES No Known Allergies COMPLETE REVIEW OF SYSTEMS: Review of Systems Constitutional: Negative for chills, diaphoresis, fever and malaise/fatigue. HENT: Negative for congestion, hearing loss, nosebleeds, sinus pain, sore throat and tinnitus. Eyes: Negative for blurred vision, double vision, pain and redness. Respiratory: Positive for shortness of breath. Negative for cough, hemoptysis, sputum production and wheezing. Cardiovascular: Negative for chest pain, palpitations, orthopnea, leg swelling and PND. Gastrointestinal: Negative for abdominal pain, blood in stool, constipation, diarrhea, nausea and vomiting. Genitourinary: Negative for dysuria, frequency, hematuria and urgency. Musculoskeletal: Positive for neck pain. Negative for back pain, falls, joint pain and myalgias. Skin: Negative for itching and rash. Neurological: Negative for dizziness, speech change, focal weakness, seizures, loss of consciousness, weakness and headaches. Endo/Heme/Allergies: Does not bruise/bleed easily. Psychiatric/Behavioral: Negative for depression, hallucinations, memory loss, substance abuse and suicidal ideas. The patient is not nervous/anxious and does not have insomnia. OBJECTIVE PHYSICAL EXAM: [facility] 06/04/2018 Physical Exam Vitals reviewed. Constitutional: Appearance: Normal appearance. She is obese. HENT: Head: Normocephalic and atraumatic. Nose: Nose normal. Eyes: General: No scleral icterus. Extraocular Movements: Extraocular movements intact. Conjunctiva/sclera: Conjunctivae normal. Pupils: Pupils are equal, round, and reactive to light. Pulmonary: Effort: Pulmonary effort is normal. No respiratory distress. Skin: General: Skin is warm and dry. Coloration: Skin is not jaundiced or pale. Neurological: General: No focal deficit present. Mental Status: She is alert and oriented to person, place, and time. Psychiatric: Mood and Affect: Mood normal. Behavior: Behavior normal. DATA: Diagnostic tests reviewed for today's visit: EMR reviewed Plan ASSESSMENT AND PLAN Watson Mcelroy is a 52 year old female with a PMH as noted above who presents with a large symptomatic paraesophageal hernia. ASSESSMENT/PLAN: 1. Paraesophageal hernia - ICD9: 553.3, ICD10: K44.9 (primary diagnosis) - She and her state that she has been told that she has a very large paraesophageal hernia containing small bowel and colon as well. Unfortunately, none of this documentation is in our system. Therefore, will obtain the below testing. - Discussed the importance of weight loss as at her current weight she is not eligible for paraesophageal hernia repair. Discussed referral options and she will consider then and get back to us. - XR UPPER GI ROUTINE DOUBLE CONTRAST/AIR - XR CHEST 2V FRONTAL/LAT - EGD - THERAPEUTIC, EUS, OR TUBE INTERVENTIONS - MANOMETRY ESOPHAGEAL - CBC + DIFF - BASIC METABOLIC PNL - ECG COMPLETE - CT ABD/PEL W IVCON - CT CHEST W IVCON 2. Gastroesophageal reflux disease, unspecified whether esophagitis present - ICD9: 530.81, ICD10: K21.9 - Discussed lifestyle modifications including losing weight, limiting caffeine, no meals three hours before sleep, and head of bed elevation - Setup for EGD - Setup for Upper GI Series with Follow Through - EGD - THERAPEUTIC, EUS, OR TUBE INTERVENTIONS 3. Iron deficiency - ICD9: 280.9, ICD10: E61.1 - IRON + TIBC 4. Class 2 severe obesity with serious comorbidity and body mass index (BMI) of 37.0 to 37.9 in adult, unspecified obesity type - ICD9: 278.01, V85.37, ICD10: E66.01, Z68.37 - We discussed the fact that her current BMI of 37.61 is higher than the recommended BMI 30-35 limit for paraesophageal hernia repair. In order to be eligible for repair she will need to lose weight. We discussed multiple weight loss options - ranging from dietary/lifestyle modifications, referral to podiatric assistant, referral to obesity medicine clinic, and bariatric surgery. She is uncertain of what she desires to do. She will think about it and let us know, but she is amendable to filling out the bariatric seminar. Medical Decision Making: Problems: Moderate: New problem with uncertain prognosis and 2+ stable chronic illnesses Data: Unique test(s) ordered: 3+ Discussed management or test w/ external physician/QHCP/source Risk: Moderate: Drug management, Moderate risk from testing/treatment and Decision on elective major surgery w/o risk factors Medical Decision Making Level: 4 - Moderate SIGNATURE: Corky Pete MD PATIENT NAME: Watson Mcelroy DATE: February 05, 2023 TIME: 9:15 AM PAGER/CONTACT #: [phone] documented in this encounter [facility] 10-24-2021 History of Present illness Narrative Watson is a 50 year old who presents for an annual gynecologic exam without complaints. Menses: on continuous OCP's Contraception: combined hormonal contraceptives HPV vaccine: N/A Last Pap: 06/19/2018 normal HPV: 06/19/2018 negative History of abnormal pap: No Last mammogram: 2021normal OB History T1 L1 SAB0 IAB0 Ectopic0 Multiple0 Live Births1 Systems Integration Manager History LMP: 06/04/2018, Drug Induced Amenorrhea Age at Menarche: Age at First : Age at Menopause: Systems Integration Manager History Comments: Sexual Activity: Yes; Male Contraception: No contraception data on record PAST MEDICAL HISTORY Diagnosis Date Anemia Celiac disease Heart palpitations Hiatal hernia 05/27/2019 seen on imaging at [facility] PAST SURGICAL HISTORY Procedure Laterality Date BREAST BIOPSY INCISION left CHOLECYSTECTOMY 04/07/2019 LITHOTRIPSY XTRCORP SHOCK WAVE FAMILY HISTORY Problem Relation Age of Onset Diabetes Mother Stroke Mother Coronary Artery Disease Father SOCIAL HISTORY Social History Tobacco Use Smoking status: Never Smoker Smokeless tobacco: Never Used Substance Use Topics Alcohol use: No Drug use: No REVIEW OF SYSTEMS Abdomen: No abdominal pain, nausea, vomiting, diarrhea, or constipation. No bloating, early satiety, indigestion, or increased flatulence. Bladder: No dysuria, gross hematuria, urinary frequency, urinary urgency, or incontinence. Breast: No breast lumps, nipple d/c, overlying skin changes, redness or skin retraction. Allergies and current medication updated:Yes EXAM: LMP 06/04/2018 GENERAL: pleasant, female in no apparent distress HEENT: Normocephalic, atraumatic, mucus membranes moist and no lesions NECK: Supple, full range of motion, no adenopathy and thyroid normal DERMATOLOGY: Normal, without lesions, non-icteric and non-hirsute BREAST: soft, non-tender, symmetric, no dominant mass, normal nipple-areolar complex, no lymphadenopathy and no nipple discharge CHEST: Clear to auscultation, Normal inspiratory effort, Regular rate and rhythm and No murmurs, clicks, rubs or gallops ABDOMEN: soft, non-tender, no masses and no hepatosplenomegaly PELVIC: external genitalia normal, normal Bartholin's glands, urethra, [place]'s glands, no vulvar lesions, no cervical lesions, good vaginal support, physiologic discharge present, normal appearing perineal body and perianal region BIMANUAL: uterus normal size, shape and consistency, midposition, no adnexal masses and non-tender RECTOVAGINAL: deferred. NEURO: alert and oriented x3,exam grossly non-focal EXTREMITIES: normal ASSESSMENT/PLAN: 1) Health maintenance: Pap/HPV up to date. Mammogram up to date . 2) Contraception: combined hormonal contraceptives. Contraceptive options reviewed and information provided. 3) STD screening: Declined STD check. 4) Follow up one year or sooner as needed Esther Rubio MD documented in this encounter [facility] 10-02-2021 Miscellaneous Notes Pharmacy verified in [facility] Patient has been identified by name and date of : Yes Patient aware RX will be sent to pharmacy. No need to notify patient. Patient phones for refill(s): Pending Prescriptions Disp Refills DROSPIRENONE 3 MG-ETHINYL ESTRADIOL 0.03 MG TABLET 28 tablet 1 Sig: Take 1 tablet by mouth once daily. New pack every 21 days. STALIN: No Pt needed to reschedule annual exam on 10/02 due to feeling ill. Pt needs 1 month refill to get her through to her next appt on 10/24/[address] Rubio. Date of last office visit : 07/12/2020 Date of next office visit : 10/24/2021 Last 2 Encounter Wt Readings: Date: Wt: 07/12/2020 234 lb (106.1 kg) 08/04/2019 235 lb (106.6 kg) Not applicable Please advise. Vanessa Cuba documented in this encounter [facility] 09-11-2021 Miscellaneous Notes Please send one pack in one pack. Annual scheduled 10/02 documented in this encounter [facility] Diagnosis Paraesophageal hernia- Primary Diaphragmatic hernia without mention of obstruction or gangrene Gastroesophageal reflux disease, unspecified whether esophagitis present Iron deficiency Iron deficiency anemia, unspecified Class 2 severe obesity with serious comorbidity and body mass index (BMI) of 37.0 to 37.9 in adult, unspecified obesity type Paraesophageal hernia Diaphragmatic hernia without mention of obstruction or gangrene [facility] Diagnosis Paraesophageal hernia- Primary Diaphragmatic hernia without mention of obstruction or gangrene [facility] Diagnosis Encounter for gynecological examination (general) (routine) without abnormal findings- Primary Encounter for screening mammogram for breast cancer [facility] Outpatient Procedure (Routine) - Pending Review Specialty Diagnoses / Procedures Referred By Fanny padilla Referred To Contact [facility] Diagnoses Paraesophageal hernia Gastroesophageal reflux disease, unspecified whether esophagitis present Procedures EGD - THERAPEUTIC, EUS, OR TUBE INTERVENTIONS EGD - THERAPEUTIC, EUS, OR TUBE INTERVENTIONS ESOPHAGOGASTRODUODENOSC OPY TRANSORAL DIAGNOSTIC Corky Pete MD [address] [address] [facility] [address] [place] [address] Referral ID Status Reason Start Date Expiration Date Visits Requested Visits Authorized [id number] Pending Review Auto-Generat ed Referral 3 02/06/2024 1 1 * MRI/CT (Routine) - Additional Clinical Info Needed Specialty Diagnoses / Procedures Referred By Contac t Referred To Contact CT IMAGING Diagnoses Paraesophageal hernia Procedures CT CHEST W IVCON DIAGNOSTIC COMPUTED TOMOGRAPHY THORAX W/CONTRAST Corky Pete MD 1 [email or web address] [address] [place] [address] [place] [id number] Referral ID Status Reason Start Date Expiration Date Visits Requested Visits Authorized [id number] Additional Clinical Info Needed Auto-Generat ed Referral 3 03/06/2024 1 1 * MRI/CT (Routine) - Pending Review Specialty Diagnoses / Procedures Referred By Contac t Referred To Contact CT IMAGING Diagnoses Paraesophageal hernia Procedures CT ABD/PEL W IVCON CT ABD & PELVIS W/CONTRAST Corky Pete MD 1 [email or web address] [address] [place] [address] [place] [address] Referral ID Status Reason Start Date Expiration Date Visits Requested Visits Authorized [id number] Pending Review Auto-Generat ed Referral 3 03/06/2024 1 1 * Outpatient Procedure (Routine) - Pending Review Specialty Diagnoses / Procedures Referred By Contac t Referred [facility] Diagnoses Paraesophageal hernia Procedures ECG COMPLETE ECG ROUTINE ECG W/LEAST 12 LDS W/I&R Corky Pete MD 1 [email or web address] [address] [place] [address] [facility] [address] [place] [address] Referral ID Status Reason Start Date Expiration Date Visits Requested Visits Authorized [id number] Pending Review Auto-Generat ed Referral 3 02/05/2024 1 1 * Outpatient Procedure (Routine) - Pending Review Specialty Diagnoses / Procedures Referred By Fanny padilla Referred To Contact [facility] Diagnoses Paraesophageal hernia Procedures MANOMETRY ESOPHAGEAL ESOPHAGEAL MOTILITY STUDY W/INTERP&RPT Corky Pete MD [facility] [address] [place] [address] [facility] [address] [place] [address] Referral ID Status Reason Start Date Expiration Date Visits Requested Visits Authorized [id number] Pending Review Auto-Generat ed Referral 3 02/06/2024 1 1 * Diagnostic Procedure Only (Routine) - Authorized Specialty Diagnoses / Procedures Referred By Fanny padilla Referred To Contact XR IMAGING Diagnoses Paraesophageal hernia Procedures XR UPPER GI ROUTINE DOUBLE CONTRAST/AIR RADIOLOGIC EXAM UPR GI TRC DOUBLE CONTRAST STUDY Corky Pete MD 1 [facility] [address] [place] [address] [place] [id number] Referral ID Status Reason Start Date Expiration Date Visits Requested Visits Authorized [id number] Authorized Auto-Generat ed Referral 3 03/06/2024 1 1 [facility] for referral (narrative)* Diagnostic Procedure Only (Routine) - Pending Review Specialty Diagnoses / Procedures Referred By Fanny padilla Referred To Contact [facility] Diagnoses Encounter for screening mammogram for breast cancer Procedures BABITA SCREENING SCREENING MAMMOGRAPHY BI 2-VIEW BREAST INC Esther Lyman MD [address] [address] [facility] [address] [place] [address] Referral ID Status Reason Start Date Expiration Date Visits Requested Visits Authorized [id number] Pending Review Auto-Generat ed Referral 3 05/08/2024 1 1 [facility] Summary Purpose Family History No Family History Records FoundNo Family History Records FoundNo Family History Records Found Advance Directives No Advanced Directives Records FoundNo Advanced Directives Records FoundNo Advanced Directives Records Found Additional Source Comments Source Comments (unrecognize d section and content) In the event this informatio n is protected by the Federal Confidentiality of Alcohol and Drug Abuse Patient Records regulations: The Federal rules restrict any use of the information to criminally investigate or prosecute any alcohol or drug abuse patient.[facility] the event this information is protected by the Federal Confidentiality of Alcohol and Drug Abuse Patient Records regulations: The Federal rules restrict any use of the information to criminally investigate or prosecute any alcohol or drug abuse patient.[facility] the event this information is protected by the Federal Confidentiality of Alcohol and Drug Abuse Patient Records regulations: The Federal rules restrict any use of the information to criminally investigate or prosecute any alcohol or drug abuse patient.[facility] the event this information is protected by the Federal Confidentiality of Alcohol and Drug Abuse Patient Records regulations: The Federal rules restrict any use of the information to criminally investigate or prosecute any alcohol or drug abuse patient.[facility] the event this information is protected by the Federal Confidentiality of Alcohol and Drug Abuse Patient Records regulations: The Federal rules restrict any use of the information to criminally investigate or prosecute any alcohol or drug abuse patient.[facility] the event this information is protected by the Federal Confidentiality of Alcohol and Drug Abuse Patient Records regulations: The Federal rules restrict any use of the information to criminally investigate or prosecute any alcohol or drug abuse patient.[facility] the event this information is protected by the Federal Confidentiality of Alcohol and Drug Abuse Patient Records regulations: The Federal rules restrict any use of the information to criminally investigate or prosecute any alcohol or drug abuse patient.[facility] Reason for Visit (unrecogniz ed section and content) Reason Onset Date Comments Refill Request 09/11/2021 Reason Onset Date Comments Refill Request 10/02/2021 Reason Comments [facility] Reason Comments New Patient Evaluation Reason Comments Appointment EGD/Du/Mano Reason Comments Abdominal Pain Complains of mid to abd pain with difficulty swallowing Specialty Diagnoses / Procedures Referred By Fanny padilla Referred To Contact General Surgery Diagnoses Paraesophageal hernia Ajit Chakraborty MD [address] [place] [address] Ajit Whittaker MD [address] [facility] [address] [place] [address] Referral ID Status Reason Start Date Expiration Date V isits Requested Visits Authorized [id number] New Request 02/27/2023 03/23/2024 1 1 Reason Comments [facility] Care Teams (unrecognized sec tion and content) B2B Sales Manager Relationship Specialty Start Date End Date Paulie Tran MD [address] [place], [place] [id number] PCP - General Family Practice 05/17/10 B2B Sales Manager Relationship Specialty Start Date End Date Paulie Tran MD [address] [place], [place] [id number] PCP - General Family Practice 05/17/10 B2B Sales Manager Relationship Specialty Start Date End Date Paulie Tran MD [address] [place], [place] [address] PCP - General Family Medicine 05/17/10 B2B Sales Manager Relationship Specialty Start Date End Date Paulie Tran MD [address] [address] PCP - General Family Medicine 05/17/10 B2B Sales Manager Relationship Specialty Start Date End Date Paulie Tran MD [address] [place] [address] PCP - General 03/12/23 B2B Sales Manager Relationship Specialty Start Date End Date Paulie Tran MD [address] [place] [address] PCP - General Family Medicine 05/17/10 INFORMATION SOURCE (unrecogn ized section and content) DATE CREATED AUTHOR AUTHOR'S ORGANIZ ATION 04/19/2023 [facility] DATE CREATED AUTHOR AUTHOR'S ORGANIZ ATION 05/05/2023 [facility] FOR RECORDS PERTAINING TO PATIENTS WHO ARE OR HAVE BEEN ENROLLED IN A CHEMICAL DEPENDENCY/SUBSTANCEABUSE PROGRAM, SOME INFORMATION MAY BE OMITTED. This clinical summary was aggregated from multiple sources. Caution should be exercised in using it in the provision of clinical care. This summary normalizes information from multiple sources, and as a consequence, information in this document may materially change the coding, format and clinical context of patient data. In addition, data may be omitted in some cases. CLINICAL DECISIONS SHOULD BE BASED ON THE PRIMARY CLINICAL RECORDS. [employer] provides no warranty or guarantee of the accuracy or completeness of information in this document.
--- NOTE | 2023-05-08 13:40 | SUR.PREOP ---
THIS NURSE CAME TO BEDSIDE TO CHECK IV THERAPY AND HANG ANOTHER KRIDER. PATIENT COMPLAINTS OF DIZZINESS PALPATATIONS AND SWEATY. DR. SAHU MADE AWARE. VITALS OBTAINED. BP 135/85, PULSE, 95, RESPS 21, SPO2 96%. DR. SAHU CALLED BY HERMINIO OGLESBY HE THINKS THIS IS ALL FROM THE DILAUDID SHE RECEIVED AND NO EKG NEEDED AT THIS TIME. NSR ON MONITOR.
[2023-05-08] MEDS: Lactated Ringers 1,000 ML 15 ML IV ×2 (13:48→19:19)
--- NOTE | 2023-05-08 14:05 | SUR.PREOP ---
PATIENT BLOOD GLUCOSE IS 140. PATIENT REQUESTS SCOPOLAMINE PATCH TO BE REMOVED D/T SYMPTOMS. REMOVED BY NURSE.
[2023-05-08 14:14] LABS: Bedside Glucose 140 mg/dL (74-106)
--- NOTE | 2023-05-08 15:35 | APP_PTH ---
PATHOLOGY RESULTS PATIENT: WATSON LEE LOC: [facility] U#:[id number] AGE/SX: 52/F ROOM: RE05/08/[address]: Dr. Khanh Chakraborty MD : 1970 BED: DIS: 05/08/2023 SPEC #: [id number] RECD: 05/09/23 18:19 STATUS: SANA DAVIS #: [id number] COLIN: 05/08/23 15:[address]: Khanh Chakraborty DEPT: SURGICAL PATHOLOGY RECD BY: Mey Augustine ENTERED: 05/09/23 07:10 SP TYPE: APPENDIX OTHR DR: Dr. Fran Tran MD Tissues: Appendix, NOS Procedures: Surgery Specimen Level IV HEADER OPERATION: Laparoscopic appendectomy PRE-OP DIAGNOSIS: Acute appendicitis TISSUE SUBMITTED: Appendix MICROSCOPIC DIAGNOSIS Appendix, appendectomy: Acute appendicitis and periappendicitis. Focal hyperplastic epithelial changes. SJ:adriana 05/13/2023 MICROSCOPIC DESCRIPTION Slides are reviewed. GROSS DESCRIPTION Received in fixative is one container labeled with the patient's name and designated appendix. The specimen consists of an S-shaped appendix measuring 8.0 cm in length and up to 1.5 cm in diameter. The attached periappendiceal adipose tissue measures up to 1.5 cm in width. The serosa is congested. No obvious perforation is identified. The lumen is filled with hemorrhagic material. No fecalith is identified. Banquet Steward sections are submitted in one cassette. / SIVLANA:adriana 05/09/2023 The appendix is submitted in three more cassettes, 2-4. / SILVANA:adriana 05/10/23 TC:5 CPT: 65698
[2023-05-08] MEDS: Bupivacaine Mpf 0.5% 30 ML VIAL (16:49)
--- NOTE | 2023-05-08 17:13 | PCM.OPRPT ---
Report of Operation Date of Procedure: 05/08/23 Pre-Operative Diagnosis: Acute appendicitis Post-Operative Diagnosis: Acute uncomplicated appendicitis Surgery/Procedure Performed:: Laparoscopic appendectomy Description of Surgical Findings:: ? Acutely inflamed appendix with adhesions to the adjacent cecum and inflammation predominant within the body of the appendix Surgeon: Khanh Chakraborty textile technical officer: None Type of Anesthesia: General/Supplemental Anesthesiologist: Edgar De Leon Specimen's removed: Appendix Estimated Blood Loss (mL): 5 Description of Procedure: After appropriate identification in the preoperative holding area, the patient was brought to the operating room and placed supine on the operating room table. Antibiotics had been preoperatively administered by emergency medicine. Patient was then induced with general endotracheal anesthetic. The abdomen was prepped and draped in usual sterile fashion. Formal timeout was conducted to confirm both the patient and the procedure. A supraumbilical incision was made and carried down to the level of the fascia which was sharply opened. After opening the peritoneum in like fashion a finger sweep was made to confirm position, and a balloon trocar was placed and pneumoperitoneum was established to 15 mmHg. Patient was positioned in Trendelenburg with the left side down. 2 additional 5 mm trocars were placed in the left lower quadrant and suprapubic positions. The peritoneum was inspected and there are no signs of inadvertent injury from this [place] entry. The appendix was visualized with a mild to moderate degree of inflammation along the right paracolic gutter. Using blunt laparoscopic dissection, a window was made in the mesoappendix adjacent to the appendiceal base. Then the base of the appendix was sealed and amputated with the use of an Endo DELFINA stapler. The mesoappendix was divided with application of a laparoscopic harmonic directly adjacent to the appendix to avoid injury to the adherent cecum/ascending colon. The appendix was placed in an Endo Catch bag. The staple line was inspected for hemostasis. After hemostasis was confirmed the appendix was removed from the umbilical port site. Pneumoperitoneum was then evacuated and the supraumbilical port site fascia was closed with #1 Vicryl in a [id number] fashion. The port sites were infiltrated with 30 mL local anesthetic. The skin of each port site was closed with 4-0 Monocryl in a subcuticular fashion. Steri-Strips and OpSite dressings were applied. Patient tolerated procedure well without any apparent complications. They were awoken from general anesthetic without issue and transferred to post anesthesia care unit for ongoing recovery. Complications None Admit VTE Documentation VTE Mechan Device Prophylaxis: SCD's Procedures Digestive [id number]-49xxx: [id number] Laparoscopy appendectomy
--- NOTE | 2023-05-08 17:17 | DCINST_ITS ---
Discharge Instructions Diet Discharge Diet: No restrictions Activity Discharge Activity: May Not Drive (No driving while using narcotic pain medication) and May Shower (Postoperative day 1) May shower in (days): 2 Ice area for (Minutes): 20 Lifting Restrictions: No lifting greater than 15 pounds for 2 weeks after surgery Dressing / Incision Call your doctor if your incision/area has: Continuous Slow Oozing, Increased Pain/ Swelling, Increased Redness, Foul Smelling Discharge and Swelling at the incision site Call your doctor if you observe: Fever of 101 or Higher Remove Dressing in: 2 days (Please leave Steri-Strips intact until they fall off spontaneously or are taken off at your follow-up visit) Cleanse incision/area with: Soap & Water Follow Up Care Please Follow Up With: Khanh Chakraborty MD When: 7-10days postop Test Results: Test results from this visit will be discussed in further detail at your follow- up appointment, if applicable. Discharge Plan Admission Primary Reason for Your Visit: Appendectomy Attending Provider: Khanh Chakraborty Primary Care Provider: Tank Tran Discharge Orders/Prescriptions Prescriptions: New oxycodone 5 mg tablet 5 mg PO Q6H PRN (Reason: pain) 3 Days Qty: 10 0RF Continued amlodipine 5 MG tablet 5 mg PO DAILY Patient Comments: PT STATES THAT SHE TAKES THIS MED AT BEDTIME drospirenone-ethinyl estradiol 1 EACH tablet 1 ea PO DAILY Patient Comments: PT STATES THAT SHE TAKES THIS MED AT BEDTIME loratadine 10 mg tablet 10 mg PO DAILY Patient Comments: PT STATES THAT SHE TAKES THIS MED AT BEDTIME omeprazole 20 mg capsule,delayed release(DR/EC) 20 mg PO DAILY Patient Comments: PT STATES THAT SHE TAKES THIS MED AT BEDTIME cholecalciferol (vitamin D3) [Vitamin D3] 25 mcg (1,000 unit) capsule 50 mcg PO DAILY Patient Comments: PT STATES THAT SHE TAKES THIS MED AT BEDTIME cyanocobalamin (vitamin B-12) [Vitamin B-12] 500 mcg tablet 1,500 mcg PO DAILY Patient Comments: PT STATES THAT SHE TAKES THIS MED AT BEDTIME Referrals / Follow Up: Tank Tran MD [Primary Care Provider] - Disposition Disposition (needs filled in before D/C Order can be placed): Home, Self Care
== END 2023-05-08 20:49 | disposition home or self-care (01) ==
LOC: ED 11:20 → SDC 11:37 → AC 12:17
PROVIDERS: Emergency Provider Emergency Medicine; PCP Family Medicine; Visit Provider Surgery
PROC: 0DTJ4ZZ Resection of Appendix, Percutaneous Endoscopic Approach (ICD-10-PCS; CPT 44970; principal; 2023-05-08 15:15)
DX: K35.30 Acute appendicitis with localized peritonitis, without perforation or gangrene (principal); K44.9 Diaphragmatic hernia without obstruction or gangrene; I10 Essential (primary) hypertension; N20.0 Calculus of kidney; Z79.899 Other long term (current) drug therapy; Z90.49 Acquired absence of other specified parts of digestive tract
CPT/HCPCS: 44970; 74177; 80048; 80053; 81001; 82962; 84703; 85025; 87086; 87088; 88304; 88305; 99283; J7030; J7120; Q9967; A4216; J2405

== ENCOUNTER → 2023-06-06 | Outpatient (CLI) | payer BC, SELFPAY ==
--- NOTE | 2023-06-06 13:09 | BI_ITS ---
MAMMOGRAPHY - BILATERAL SCREENING REASON FOR EXAM: Female, 52 years old. Routine annual screening examination. PERTINENT HISTORY: Aunt with breast cancer. Remote left excisional breast biopsy. TECHNIQUE: Digital bilateral breast eldon (3D mammographic acquisition) in the CC and MLO projections. 2-D mediolateral oblique (MLO) and craniocaudad (CC) views of both breasts were obtained. CAD: Full Field Digital Mammography with Computer Added Detection was performed. COMPARISON: Comparison is made with prior study dated July 17, 2021 and December 08, 2018. FINDINGS: Breast Composition: There are scattered areas of fibroglandular density. There are no dominant masses or suspicious calcifications. Stable 4 mm well-defined nodule in the upper lateral aspect of the right breast. No other significant abnormalities are identified. There has been no significant change since the prior study. BI/SCRN MAMM (CAD)W/ELDON BILAT IMPRESSION: Stable bilateral screening mammogram. Yearly follow-up mammogram recommended. (A) ASSESSMENT CATEGORY: BIRADS Category 2: Benign. A letter regarding these results will be sent to the patient by the facility within 30 days. Approximately 10% of breast cancers are not detected by mammography. A normal mammogram should not delay biopsy of a clinically suspicious abnormality. [id number] Electronically Signed: Cortez Garcia MD at 14:18 EST ,
== END | disposition home or self-care (01) ==
LOC: OPBI 13:06
PROVIDERS: PCP Family Medicine
DX: Z12.31 Encounter for screening mammogram for malignant neoplasm of breast (principal); Z80.3 Family history of malignant neoplasm of breast
CPT/HCPCS: 77063; 77067

== ENCOUNTER → 2023-08-20 | Outpatient (CLI) | payer BC, SELFPAY ==
[2023-08-20 12:23] LABS: Hematocrit 40.6 % (37-47); Hemoglobin 13.6 g/dL (12.0-15.0); Mean Corp Hgb Conc 33.5 g/dL (32-36); Mean Corpuscular Hgb 28.6 pg (27.0-32.0); Mean Corpuscular Volume 85.5 fL (81-99); Mean Platelet Vol. 11.6 fl (6.2-12.0); Platelet Count 365 K/mm3 (150-450); RBC Distribution Width CV 13.1 % (11.6-14.6); RBC Distribution Width SD 40.7 fl (35.1-43.9); Red Blood Count 4.75 M/mm3 (4.2-5.4); White Blood Count 8.5 K/mm3 (4.4-11.0)
[2023-08-20 12:40] LABS: Vitamin B12 1117 pg/mL (211-911); Vitamin D,25 Hydroxy 42.7 ng/mL
[2023-08-20 13:12] LABS: ALB/GLOB Ratio 0.8 RATIO (0.9-2.4); AST(SGOT) 22 U/L (15-37); Alanine Aminotransfer ALT/SGPT 17 U/L (13-56); Albumin, Serum 3.3 g/dL (3.2-5.0); Alkaline Phosphatase 60 U/L (45-117); Anion Gap 7 (5-15); BUN 8 mg/dL (7-18); BUN/Creat Ratio 9.4 RATIO (10-20); Calcium,Total 8.5 mg/dL (8.5-10.1); Chloride 107 mmol/L (98-107); Creatinine, Serum 0.85 mg/dL (0.55-1.02); EST Glomerular Filtration Rate 74 mL/min (>60); Est Glom Filt Rate - Afr Amer 90 mL/min (>60); Globulin 4.1 g/dL (2.2-4.2); Glucose 115 mg/dL (74-106); Potassium 3.3 mmol/L (3.5-5.1); Protein, Total 7.4 g/dL (6.4-8.2); Sodium Level 137 mmol/L (136-145)
== END | disposition home or self-care (01) ==
LOC: MFPLAB 10:20
PROVIDERS: PCP Family Medicine; Visit Provider Family Medicine
DX: E53.9 Vitamin B deficiency, unspecified (principal); R53.83 Other fatigue; E55.9 Vitamin D deficiency, unspecified
CPT/HCPCS: 36415; 80053; 82306; 82607; 84443; 85027

== ENCOUNTER 2023-11-07 06:26 | Day surgery (SDC) | payer BC, SELFPAY ==
[2023-11-07] VITALS (8 sets, daily range): BP systolic 108–132; BP diastolic 60–79; PULSE 80–94; RESP 16; TEMP 36.1–36.7; O2SAT 97–100; BMI 33.8
[2023-11-07] MEDS: Lactated Ringers 1,000 ML 15 ML IV (06:52)
[2023-11-07 07:07] LABS: Internal QC Validated? YES +Cl - CLEAR BKGD; Pregnancy, Urine Negative Negative
--- NOTE | 2023-11-07 07:15 | PRE.ANES_ITS ---
ASA Classification* ASA Classification ASA Classification: 2 Assessment & Plan Anesthesia* Anesthesia Assessment Anesthesia Assessment: Discussed sedation and/or anesthesia options, risks, benefits, and alternatives with patient/parents/legal guardian/POA. Questions invited. The patient/parents/legal guardian/POA seems to understand and agrees to proceed with anesthesia plan. Reviewed the physical assessment, medical history, allergy history and patient home medications list prior to surgery/procedure/anesthetic and documented any changes. Performed airway and anesthesia risk assessments. Anesthesia Type Anesthesia Type: MAC Anesthesia Focused Assessment* Temperature: 98.1 F Pulse Rate: 88 Blood Pressure: 132/79 Respiratory Rate: 16 Pulse Ox: 100 Airway Assessment Mouth opens: >3 cm Mallampati Score: II Focused Labs Anesthesia Preop lab: CBC WBC 8.5 K/mm3 (4.4-11.0) 08/20/23 10:20 RBC 4.75 M/mm3 (4.2-5.4) 08/20/23 10:20 Hgb 13.6 g/dL (12.0-15.0) 08/20/23 10:20 Hct 40.6 % (37-47) 08/20/23 10:20 Plt Count 365 K/mm3 (150-450) 08/20/23 10:20 CHEMISTRY Potassium 3.3 mmol/L (3.5-5.1) L 08/20/23 10:20 Sodium 137 mmol/L (136-145) 08/20/23 10:20 Magnesium 2.0 mg/dL (1.8-2.4) 06/25/13 16:53 BUN 8 mg/dL (7-18) 08/20/23 10:20 Creatinine 0.85 mg/dL (0.55-1.02) 08/20/23 10:20 Glucose 115 mg/dL (74-106) H 08/20/23 10:20 POC Glucose 140 mg/dL (74-106) H 05/08/23 13:56 TSH 3.40 uIU/mL (0.358-3.74) 08/20/23 10:20 COAG PT 12.8 SECONDS (11.7-14.9) 03/19/19 13:25 Urine Test Negative Negative 11/07/23 06:35 Pre-Assessment Diagnosis/Proposed Procedure Planned Operative Procedure(s): COLONOSCOPY Anesthesia History 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 When Was Last Pacemaker Check QUESTION #4 FULL TEXT: You/Your Family Experience fever (hyperthermia) with Anesthesia Last Oral Intake Last Oral intake: Last Oral Intake NPO since 03:30 11/07/23 06:44 Meds taken in AM with sips of water? Meds patient instructed to take am of surgery PONV PONV - children's service supervisor: PONV - children's service supervisor Female Yes 11/04/23 10:26 HX of Motion Sickness Yes 11/04/23 10:26 HX of N/V After Surgery Yes 11/04/23 10:26 Non-Smoker Yes 11/04/23 10:26 Duration of Surgery greater No 11/04/23 10:26 than 60 minutes Number of Risk Factors 4 11/04/23 10:26 PONV Score Severe Risk 11/04/23 10:26 Height & Weight Height & Weight: Anesthesia: Height & Weight Height 5 ft 7 in 11/07/23 06:44 Weight: 97.976 kg 11/07/23 06:44 Body Mass Index (BMI) 33.8 11/07/23 06:44 Respiratory Assessment Respiratory Assessment - children's service supervisor: Respiratory Tract Infection Hx - children's service supervisor Hx Respiratory Tract Infection No 11/04/23 10:26 STOP Sleep Apnea STOP Sleep Apnea - children's service supervisor: STOP Sleep Apnea - children's service supervisor Hx Hypertension Yes 11/04/23 10:26 Hx Sleep Apnea No 11/04/23 10:26 CPAP No 05/08/23 17:26 BIPAP No 04/02/19 13:13 Do you snore loudly (louder No 11/04/23 10:26 than talking or can be heard Do you often feel tired/ No 11/04/23 10:26 fatigued/ sleepy during daytime? Has anyone observed you stop No 11/04/23 10:26 breathing during sleep? STOP Results Negative 11/04/23 10:26 QUESTION #5 FULL TEXT : Do you snore loudly (louder than talking or can be heard through closed doors)? Tobacco Use History Tobacco Use History - children's service supervisor: Tobacco Use History - children's service supervisor Tobacco Use Smoking Status Never smoker 11/04/23 10:26 Hx Tobacco Use No 11/04/23 10:26 Years Smoking Packs Smoked per Day Smoking Cessation Date was within the last 15 years Hx Smoking Cessation Date Hx Smoking Cessation Counseling Hematologic Medial History Hematologic Hx - children's service supervisor: Hematologic Medical Hx - furnace setter Hx of Blood Transfusion No 11/04/23 10:26 Hx of Transfusion in last 3 No 11/04/23 10:26 Months Date of Last Transfusion (if within last 3 months) Ever experience any problems No 11/04/23 10:26 with transfusion(s)? Specify any problems Hx of Preganancy in last 3 No 11/04/23 10:26 Months Nurse Filling Out Transfusion SFRANTZ 11/04/23 10:26 & Questions: Date: 11/04/23 11/04/23 10:26 Time: 10:29 11/04/23 10:26 Patient unable to answer at this time (ie. confused, unrespo /Reproduction History /Reproductive History - children's service supervisor: /Reproductive Hx- children's service supervisor Hx Now No 11/04/23 10:26 Gestational Age (in weeks): EDC: Hx Hx Para Hx Section SAB No 11/04/23 10:26 Active Medications Active Medications: Current Medications Generic Name Dose Route Start Last Admin Trade Name Freq PRN Reason Stop Dose Admin Lactated Ringer's 1,000 mls @ 15 mls/hr 11/07/23 06:30 11/07/23 06:52 IV 15 mls/hr .Q48H JORGE Administration PFSH Medical History Wears contact lenses History of kidney stones Fatty liver History of hiatal hernia Non-smoker History of celiac disease History of stress test Environmental allergies HTN (hypertension) Nausea Abdominal pain Celiac disease Left ureteral calculus Home Medications ?Medication ?Instructions ?Recorded ?Last Taken ?Type amlodipine 5 mg tablet 5 mg PO QPM HIGH BLOOD PRESSURE 02/23/19 05/07/23 History drospirenone 3 mg-ethinyl 1 ea PO DAILY HORMONES 02/23/19 05/07/23 History estradiol 0.03 mg tablet cholecalciferol (vitamin D3) 25 50 mcg PO DAILY 05/08/23 05/07/23 History mcg (1,000 unit) capsule (Vitamin D3) cyanocobalamin (vitamin B-12) 500 1,500 mcg PO DAILY supplement 05/08/23 05/07/23 History mcg tablet (Vitamin B-12) loratadine 10 mg tablet 10 mg PO DAILY allergies 05/08/23 05/07/23 History Allergy/AdvReac Type Severity Reaction Status Date / Time gluten Allergy Food Verified 11/07/23 06:44 Allergy Family History Mother Diabetes Osteoporosis CVA (cerebral vascular accident) Heart disease Hypertension Father Heart disease Surgical History History of Maria M fundoplication S/P appendectomy Hx laparoscopic cholecystectomy History of breast surgery Social History Smoking Status: Never smoker alcohol intake: never substance use type: does not use Review of Systems (Anesthesia) ROS Narrative System reviewed and no additional complaints, except as documented.
--- NOTE | 2023-11-07 07:35 | PCM.HP.BLA ---
History and Physical Date of Admission: 11/07/23 Date of Service: 09/06/23 MR#: [id number] Acct: [id number] Name: WATSON MCELROY Rep #: [id number] : 1970 Provider: Dr. Khanh Chakraborty MD Age/Sex: 52/F Location: [facility] Status: Signed Intake Vital Signs 05/08/2409:47 09/06/2407:22 Height 5 ft 7 in 5 ft 7 in Weight: 216 lb BMI 33.8 BP 122/81 H Blood Pressure Location Rt brachial Position Sitting Respiration 18 Pulse 95 Pulse Source Monitor Temp 97.5 F L Temp Source Temporal Pulse Oximetry (%) 99 Oxygen Delivery Method room air Intake Visit Reasons: COLONOSCOPY Chief Complaint: colonoscopy/EGD consult Is patient in pain?: No Allergies gluten Allergy (Verified 09/06/23 08:22) Food Allergy Medications amlodipine 5 mg tablet 5 mg PO DAILY HIGH BLOOD PRESSURE 02/23/19 [History Confirmed 09/06/23] drospirenone 3 mg-ethinyl estradiol 0.03 mg tablet 1 ea PO DAILY HORMONES 02/23/19 [History Confirmed 09/06/23] cholecalciferol (vitamin D3) 25 mcg (1,000 unit) capsule (Vitamin D3) 50 mcg PO DAILY 05/08/23 [History Confirmed 09/06/23] cyanocobalamin (vitamin B-12) 500 mcg tablet (Vitamin B-12) 1,500 mcg PO DAILY supplement 05/08/23 [History Confirmed 09/06/23] loratadine 10 mg tablet 10 mg PO DAILY allergies 05/08/23 [History Confirmed 09/06/23] omeprazole 20 mg capsule,delayed release 20 mg PO DAILY acid reflux 05/08/23 [History Confirmed 09/06/23] potassium chloride 20 mEq tablet,extended release(part/cryst) (Klor-Con M) 20 meq PO QDAY 09/06/23 [History Confirmed 09/06/23] [facility] Medical History Abdominal pain Celiac disease Environmental allergies Hiatal hernia HTN (hypertension) Left ureteral calculus Nausea Surgical History History of breast surgery Hx laparoscopic cholecystectomy S/P appendectomy Family History Mother Diabetes Osteoporosis CVA (cerebral vascular accident) Heart disease HypertensionFather Heart disease Social History Smoking Status: Never smoker alcohol intake: never substance use type: does not use HPI HPI HPI: Patient is a 52-year-old female who is known to me for prior evaluation of a paraesophageal hernia as well as a emergent appendectomy but presents today for need to schedule screening colonoscopy secondary to duration since her last colonoscopy. They are referred for surgical consultation from Dr. Tran. She shares that she underwent double endoscopy [address] Schmitz due to a number of abdominal complaints at that time. She was ultimately diagnosed with celiac disease, but recalls that she was advised to follow-up with a repeat EGD and that her colonoscopy was completely normal. Patient is status post robot-assisted paraesophageal hernia repair with Dr. Whittaker of [facility] on 06/22/2023. She states that her recovery was initially rough and that she was lethargic for a long time. She shares that she attributes this lethargy to her limited diet and what she believes was dumping syndrome that is slowly improving. She describes frequent bouts of diarrhea and rigorous potassium repletion. As an upside she noticed a significant improvement in her respiratory reserve postop. She now, however describes some tightness that she first noticed about 6 weeks out from her surgery. There is some associated left arm weakness with eating. She recalls that Dr. Schmitz had recommended she consider repeating an EGD not long after her initial EGD with him 20 years ago given her diagnosis of celiac. She shares the symptoms she describes can be precipitated by as little as 3 bites of watermelon. She also wonders whether or not she is experiencing some esophageal spasm related to her low potassium. Patient has had prior colonoscopy (as described above) approximately 20 years ago. Patient has no personal history of colon cancer, inflammatory bowel disease, or diverticulitis and in fact they report that there bowel movements are better than they were 20 years ago. She cites the fact that she has not required nearly as much Metamucil or had nearly as much constipation as she did previously. Apart from the diarrhea described above she has not noticed any change in her bowel habits.. They describe their bowel habits as generally soft and normal. They spend roughly a few minutes on the toilet without significant straining. They have not noticed recent bleeding or dark stools. They do not regularly take fiber supplements. Mrs. Mckinnon shares that she has a known history of a hemorrhoid that drives her crazy. She also notes that has been previously lanced and was considered an external hemorrhoid. Lastly she describes some anal cramping. She notes this to be particularly bothersome late in the day and it has occurred several times in the last month. She notes the last time she used a bath of hot water to help with her symptoms. She describes some very self-limited sharp pain but denies any associated bulging or itching. Patient has no family history of colon cancer, inflammatory bowel disease, or diverticulitis. The patient's weight is stable. The patient is not prescribed anticoagulants/blood thinners. Relevant prior abdominal surgical history includes: Appendectomy and hiatal hernia repair as described above. ROS General General: Yes fatigue; No weight change, appetite, colon cancer, breast cancer or weakness HEENT HEENT: No difficulty swallowing, eye injury, eye surgery, swollen glands or hoarseness Endo Endocrine: No thyroid disease, diabetes mellitus, thyroid cancer, Hair loss, heat intolerance or cold intolerance Skin Skin: No rash or changing moles Breast Breast: No left breast lump, right breast lump, nipple discharge, breast pain, abnormal mammogram, abnormal US or breast enlargement Musc Musculoskeletal: No back problems, arthritis, rheumatoid arthritis, gout or joint pain Cardio Cardiovascular: Yes high blood pressure; No murmur, pacemaker, heart disease, atrial fibrillation, heart attack, heart stent, palpitations, shortness of breat with exertion or chest pain Psych Psychiatric: No depression, anxiety or hearing voices Resp Respiratory: Yes shortness of breath, No sleep apnea, No cough, No COPD, No asthma, No emphysema and No wheezing Gastro Gastrointestinal: Yes abdominal pain, Yes nausea or vomiting, No diarrhea, No constipation, No blood in stool, No acid reflux, Yes hemorrhoids, No ulcers, No gallbladder problem and No black,tarry stools Geovanny Hematologic: No blood thinners, No blood disorders, No bleeding, No anemia and No blood clots Neuro Neurologic: No system reviewed and no additional complaints, except as documented, No as per HPI, No abnormal gait, No abnormal hearing, No abnormal movements, No abnormal speech, No behavioral changes, No burning sensations, No confusion, No convulsions, No disequilibrium, No dizziness, No localized weakness, No frequent falls, No headache(s), No lack of coordination, No loss of vision, No memory loss, No numbness, No other visual disturbances, No radicular pain, No restless legs, No sensory deficit, No syncope, No tingling, No tremor(s), No weakness and No other Exam Const General: cooperative and comfortable Orientation: alert, awake and oriented x3 Resp Effort & Inspection: normal respiratory effort GI Other: Mildly distended, well-healed port site incisions, soft, nontender to palpation x 4 quadrants Assessment and Plan Assessment and Plan (1) Screening for colon cancer: Status: Acute Comment: Patient is a 52-year-old female, last colonoscopy 20 years ago who has not had further colon screening for colon cancer. She describes previously more erratic bowel habits with combination of constipation and diarrhea, but is pleased to report that her bowel movements are more regular of late. Further she denies any concerns for bleeding. She does have a history of celiac disease. I have encouraged her to consider use of fiber for minimizing the diarrheal experience she is having. Additionally it is difficult to fully determine the source for her anal cramping. Differential would include internal hemorrhoids versus anal fissure versus other ... Thus I have shared with her that in addition to pursuing a screening colonoscopy we could consent her for possible hemorrhoid banding if these are found. Patient is enthusiastic with her acceptance of this recommendation. Otherwise we will plan for screening colonoscopy with 2-day bowel prep. Plan: Plan will be to complete colonoscopy on first mutually agreeable date under local MAC. Pre-procedure prep discussed and paper instructions provided. Patient is also made aware that she will need to have a lifter driver with her the day of the procedure. (2) Paraesophageal hernia: Status: Chronic Comment: This is a 52-year-old female who presents following repair of a large type IV paraesophageal hernia at the [facility]. She describes some tightness as well as radiating arm discomfort with food. She initially requests EGD to be done with her colonoscopy as she felt it was reasonable to couple of these given the common sedation. However, I have outlined to her that I recommended strongly that she review the symptoms with her operating team at the [facility] when she follows up with them for her 12-week check-in. I shared that there were many considerations based on her description to include normal anatomic variants, versus dysmotility, versus nerve?related pathology. Once these considerations were outlined Mrs. Mcelroy expressed understanding of my perspective and agreed to take these concerns up with her surgical team at [facility]. Plan: Defer to [facility] I have examined the patient the following changes are noted: Patient shares that she has had decreased frequency of her dumping syndrome episodes as well as her experience of anal cramping. Further she states that she completed her prep without difficulty and her output is now clear. More specifically she denies any issues from her hemorrhoidal disease through the prep. She denies any questions related to today's plans and we have addended her consents to include possible hemorrhoid banding although he does acknowledge she has had some improvement of her hemorrhoidal symptoms. Will now proceed to endoscopy suite for planned procedure.
--- NOTE | 2023-11-07 08:42 | PCM.POST.ANE ---
Anesthesia: Postop Eval I Current Vital Signs Temperature: 97 F Pulse Rate: 80 Blood Pressure: 114/70 Respiratory Rate: 16 Pulse Ox: 99 Assessment Airway patent: Yes Spontaneous unlabored respirations: Yes Mental status: Awake and Calm nausea: No Vomiting: No Anesthesia Complication: No Fluid Hydration Crystalloid volume administer (ml): 500 Total IV fluid infused: 500 Progress Note Anesthesia document: Postop Eval 1 completed: Yes
--- NOTE | 2023-11-07 08:50 | OP.COLON_ITS ---
Patient Name: Vinny Mcelroy Procedure Date: 11/07/2023 7:17 AM Date of : 1970 Age: 52 Procedure: Colonoscopy Indications: Screening for colorectal malignant neoplasm Providers: Khanh Chakraborty MD Medicines: See the Anesthesia note for documentation of the administered medications Patient Profile: Last Colonoscopy: more than 10 years ago. Complications: No immediate complications. Estimated blood loss: Minimal. Procedure: Pre-Anesthesia Assessment: - The heart rate, respiratory rate, oxygen saturations, blood pressure, adequacy of pulmonary ventilation, and response to care were monitored throughout the procedure. After I obtained informed consent, the scope was passed under direct vision. Throughout the procedure, the patient's blood pressure, pulse, and oxygen saturations were monitored continuously. The Colonoscope was introduced through the anus and advanced to the cecum, identified by appendiceal orifice and ileocecal valve. The quality of the bowel preparation was good. Scope In: 7:56:55 AM Scope Withdrawal Time 0 hours 24 minutes 3 seconds Scope Out: 8:31:34 AM Total Procedure Duration Time 0 hours 34 minutes 39 seconds Findings: The perianal and digital rectal examinations were normal. Pertinent negatives include normal sphincter tone. Multiple small and large-mouthed diverticula were found in the sigmoid colon and descending colon. No biopsies or other specimens were collected for this exam. There was a small lipoma, 5 mm in diameter, in the cecum. No biopsies or other specimens were collected for this exam. Internal hemorrhoids were found during retroflexion. The hemorrhoids were Grade II (internal hemorrhoids that prolapse but reduce spontaneously). One band was successfully placed at the left lateral position. There was no bleeding at the end of the procedure. Impression: - Diverticulosis in the sigmoid colon and in the descending colon. No specimens collected. - Small lipoma in the cecum. No specimens collected. - Internal hemorrhoids. Banded. Recommendation: - Discharge patient to home (via wheelchair). - High fiber diet today. - No aspirin, ibuprofen, naproxen, or other non-steroidal anti-inflammatory drugs for 2 days. - Repeat colonoscopy in 7-10 years for screening purposes. - Telephone my office for study results in 1 week. Procedure Code(s): --- Professional --- 60331, Colonoscopy, flexible; with band ligation(s) (eg, hemorrhoids) Diagnosis Code(s): --- Professional --- Z12.11, Encounter for screening for malignant neoplasm of colon K64.1, Second degree hemorrhoids D17.5, Benign lipomatous neoplasm of intra-abdominal organs K57.30, Diverticulosis of large intestine without perforation or abscess without bleeding CPT copyright 2021 [employer]. All rights reserved. The codes documented in this report are preliminary and upon director education review may be revised to meet current compliance requirements. Khanh Chakraborty MD 11/07/2023 8:49:56 AM This report has been signed electronically. Number of Addenda: 0 Note Initiated On: 11/07/2023 7:17 AM
--- NOTE | 2023-11-07 08:51 | OP.CCLET_ITS ---
11/07/2023 Tank Tr[facility] [address] [place] [address] Re : Colonoscopy procedure for Vinny Mcelroy Dear Dr. Tran This procedure was performed on October. My impressions and recommendations are as follows: Impressions : - Diverticulosis in the sigmoid colon and in the descending colon. No specimens collected. - Small lipoma in the cecum. No specimens collected. - Internal hemorrhoids. Banded. Recommendations : - Discharge patient to home (via wheelchair). - High fiber diet today. - No aspirin, ibuprofen, naproxen, or other non-steroidal anti-inflammatory drugs for 2 days. - Repeat colonoscopy in 7-10 years for screening purposes. - Telephone my office for study results in 1 week. My findings are described in the full procedure note, which is enclosed. If I can be of further assistance, please feel free to contact me at Doctor phone number(s): , Work: . Sincerely, Khanh Chakraborty MD 11/07/2023 8:49:56 AM This report has been signed electronically.
--- NOTE | 2023-11-07 09:02 | PCM.POSTANE2 ---
Anesthesia Postop Eval I Sum Postop Eval Completion status Anesthesia document: Postop Eval 1 completed: Yes Anesthesia Postop Eval I Summary Anesthesia Postop Eval I Summary: Anesthesia Postop Eval I: Assessment Summary Airway patent Yes 11/07/23 08:43 Spontaneous unlabored Yes 11/07/23 08:43 respirations Mental status Awake,Calm 11/07/23 08:43 nausea No 11/07/23 08:43 Vomiting No 11/07/23 08:43 Anesthesia Postop Eval I: Fluid Summary Crystalloid volume administer 500 11/07/23 08:43 (ml) Colloids volume administered ( ml) Blood Product volume administered (ml) Total IV fluid infused 500 11/07/23 08:43 Anesthesia Postop Eval I: Summary Notes Anesthesia Complication No 11/07/23 08:43 Anesthesia Complication Comment: Post-operative progress note Anesthesia: Postop Eval II Evaluation Mental status: Awake Pain Level: 0 nausea: No Vomiting: No
--- NOTE | 2023-11-07 09:11 | SUR.PHASEII ---
Patient ready for DC. at [facility] in [place]. Expected for pickup/ ride home at noon.
== END 2023-11-07 10:58 | disposition home or self-care (01) ==
LOC: EN 06:26 → AC 06:27
PROVIDERS: Anesthesiology; PCP Family Medicine; Referring Provider Surgery; Visit Provider Surgery
PROC: 0DJD8ZZ Inspection of Lower Intestinal Tract, Via Natural or Artificial Opening Endoscopic (ICD-10-PCS; CPT 45378; principal; 2023-11-07 07:25)
DX: Z12.11 Encounter for screening for malignant neoplasm of colon (principal); K57.30 Diverticulosis of large intestine without perforation or abscess without bleeding; K64.1 Second degree hemorrhoids; I10 Essential (primary) hypertension; Z79.899 Other long term (current) drug therapy; Z90.49 Acquired absence of other specified parts of digestive tract; D17.5 Benign lipomatous neoplasm of intra-abdominal organs
CPT/HCPCS: 45398; 81025; J7120; J2405

== ENCOUNTER → 2024-02-24 | Outpatient (CLI) | payer BC, SELFPAY ==
[2024-02-24 12:24] LABS: Vitamin B12 519 pg/mL (211-911); Vitamin D,25 Hydroxy 33.8 ng/mL
[2024-02-24 12:25] LABS: Absolute Lymphocyte Count 2.16 X10^3/uL (0.83-4.51); Absolute Neutrophil Count 5.8 X10^3/uL (2.0-7.7); Basophil# 0.08 X10^3/uL; Basophil% 0.9 % (0-1); Eosinophil# 0.27 X10^3/uL; Eosinophils% 3.1 % (0-5); Hematocrit 42.1 % (37-47); Hemoglobin 13.9 g/dL (12.0-15.0); Lymphocyte # 2.16 X10^3/ul (0.83-4.51); Lymphocyte % 24.6 % (19-41); Mean Corpuscular Hgb 28.4 pg (27.0-32.0); Mean Corpuscular Volume 85.9 fL (81-99); Mean Platelet Vol. 11.4 fl (6.2-12.0); Monocyte# 0.42 X10^3/uL; Monocyte% 4.8 % (0-10); NRBC Flagged by Analyzer 0 % (0-5); Neutrophil # 5.82 X10^3/uL (2.7-7.7); Neutrophil % 66.4 % (47-70); Platelet Count 342 K/mm3 (150-450); RBC Distribution Width CV 12.5 % (11.6-14.6); RBC Distribution Width SD 39.1 fl (35.1-43.9); White Blood Count 8.8 K/mm3 (4.4-11.0)
[2024-02-24 12:49] LABS: Erythrocyte Sedimentation Rate 27 mm/hr (0-30)
[2024-02-24 12:53] LABS: ALB/GLOB Ratio 0.8 RATIO (0.9-2.4); AST(SGOT) 20 U/L (15-37); Alanine Aminotransfer ALT/SGPT 17 U/L (13-56); Albumin, Serum 3.2 g/dL (3.2-5.0); Alkaline Phosphatase 61 U/L (45-117); Anion Gap 7 (5-15); BUN 10 mg/dL (7-18); BUN/Creat Ratio 13.9 RATIO (10-20); Calcium,Total 8.6 mg/dL (8.5-10.1); Chloride 107 mmol/L (98-107); Creatinine, Serum 0.72 mg/dL (0.55-1.02); EST Glomerular Filtration Rate 90 mL/min (>60); Est Glom Filt Rate - Afr Amer 109 mL/min (>60); Ferritin 42 ng/mL (8-252); Globulin 4.1 g/dL (2.2-4.2); Glucose 105 mg/dL (74-106); Iron 72 ug/dL (50-170); Potassium 3.8 mmol/L (3.5-5.1); Protein, Total 7.3 g/dL (6.4-8.2); Sodium Level 137 mmol/L (136-145)
== END | disposition home or self-care (01) ==
LOC: MFPLAB 10:34
PROVIDERS: PCP Family Medicine; Referring Provider Family Medicine; Visit Provider Family Medicine
DX: R19.7 Diarrhea, unspecified (principal); E53.9 Vitamin B deficiency, unspecified; E55.9 Vitamin D deficiency, unspecified
CPT/HCPCS: 36415; 80053; 82306; 82607; 82728; 83540; 84443; 85025; 85652

== ENCOUNTER → 2024-09-29 | Outpatient (CLI) | payer OTHER, SELFPAY ==
--- NOTE | 2024-09-29 12:16 | BI_ITS ---
EXAM: SCRN MAMM (CAD)W/ELDON BILAT DATE: 09/29/2024 CLINICAL HISTORY: F, Age 53 y/o , SCREENING BREAST CANCER RISK ASSESSMENT: Na TECHNIQUE: Bilateral screening digital breast tomosynthesis with 2D and 3D images. Computer aided detection. COMPARISON: Prior exam(s) were compared FINDINGS: TISSUE DENSITY: The breast tissue is composed of scattered area of fibroglandular density. Bilateral Breast Mammographic Findings: No suspicious masses, calcifications or other abnormalities are identified. BI/SCRN MAMM (CAD)W/ELDON BILAT IMPRESSION: OVERALL FINAL ASSESSMENT: BIRADS 1 NEGATIVE RECOMMENDATION: Routine annual follow-up in 1 Year A letter with findings and recommendations will be mailed to the patient. Reading Location: [id number]
== END | disposition home or self-care (01) ==
LOC: OPBI 12:14
PROVIDERS: PCP Family Medicine
DX: Z12.31 Encounter for screening mammogram for malignant neoplasm of breast (principal)
CPT/HCPCS: 77063; 77067

== ENCOUNTER 2025-02-25 10:26 | Outpatient (CLI) | payer OTHER, SELFPAY ==
[2025-02-25 13:30] LABS: AST(SGOT) 37 U/L (<=31); Alanine Aminotransfer ALT/SGPT 17 U/L (<=34); Albumin, Serum 3.9 g/dL (3.5-5.0); Alkaline Phosphatase 61 U/L (35-104); Anion Gap 13 (5-15); BUN 7 mg/dL (4-19); BUN/Creat Ratio 11.0 RATIO (10-20); Calcium,Total 8.9 mg/dL (7.6-11.0); Carbon Dioxide 21.1 mmol/L (21.0-32.0); Chloride 104 mmol/L (98-108); Globulin 3.5 g/dL (2.2-4.2); Glucose 128 mg/dL (70-99); Potassium 3.3 mmol/L (3.3-5.1); Vitamin D,25 Hydroxy 32.1 ng/mL (30-100)
== END 2025-02-25 23:59 | disposition home or self-care (01) ==
LOC: MFPLAB 10:26
PROVIDERS: PCP Family Medicine; Visit Provider Family Medicine
DX: R73.01 Impaired fasting glucose (principal); E55.9 Vitamin D deficiency, unspecified
CPT/HCPCS: 36415; 80053; 82306; 84443